=== PATIENT | male | born 1970 | race African-American/Black ===

== ENCOUNTER 2016-11-11 18:09 | Inpatient (IN) | payer OTHER ==
[2016-11-11 19:01] VITALS: BMI 17.2
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
[2016-11-11] MEDS ORDERED: P-EPHED 60MG/TRIPROLIDI 2.5MG TABLET PO PRN (19:58)
[2016-11-11] MEDS ORDERED: MAGNESIUM HYDROX 2400MG/30ML ORAL SUSPENSION 30 ML CUP PO PRN (19:58)
[2016-11-11] MEDS ORDERED: chlordiazePOXIDE HCL 25 MG CAPSULE PO ONE (19:58)
[2016-11-11] MEDS ORDERED: guaiFENesin/D-METHORPHAN HB 10 ML UNIT-DOSE CUPS PO PRN (19:58)
[2016-11-11] MEDS ORDERED: chlordiazePOXIDE HCL 25 MG CAPSULE PO PRN (19:58)
[2016-11-11] MEDS ORDERED: LOPERAMIDE HCL 2 MG CAPSULE PO PRN (19:58)
[2016-11-11] MEDS ORDERED: ACETAMINOPHEN 325 MG TABLET (FP) PO PRN (19:58)
[2016-11-11] MEDS ORDERED: MENTHOL/PHENOL 1 EACH UD MM PRN (19:58)
[2016-11-11] MEDS ORDERED: IBUPROFEN 400 MG TABLET (FP) PO PRN (19:58)
[2016-11-11] MEDS ORDERED: MAGNESIUM CITRATE 300 ML BOTTLE PO PRN (19:58)
[2016-11-11] MEDS ORDERED: hydrOXYzine PAMOATE 50 MG CAPSULE (FP) PO PRN (19:58)
[2016-11-11] MEDS ORDERED: MAG HYDROX/AL HYDROX/SIMETH 30 ML UNIT-DOSE CUP PO PRN (19:58)
[2016-11-11] MEDS: CYCLOBENZAPRINE HCL 10 MG TABLET (FP) PO PRN (22:38)
[2016-11-11] MEDS: THIAMINE HCL 100 MG TABLET (FP) PO SCH (22:38)
[2016-11-11] MEDS: diphenhydrAMINE HCL 50 MG CAPSULE PO PRN (22:38)
[2016-11-11] MEDS: chlordiazePOXIDE HCL 25 MG CAPSULE PO SCH (22:38)
[2016-11-12] MEDS: chlordiazePOXIDE HCL 25 MG CAPSULE PO SCH ×4 (06:17→22:50)
[2016-11-12 09:33] LABS: MEAN PLT VOLUME 8.5 fl (7.5-11.1); PLATELET COUNT 129 K/MM3 (134-434); RDW 13.1 % (11.9-15.9); WHITE BLOOD COUNT 5.1 K/mm3 (4.0-10.0)
[2016-11-12] MEDS: PRENATAL VITAMINS W/ FOLIC ACID TABLET (FP) PO SCH (10:29)
[2016-11-12] MEDS: CYCLOBENZAPRINE HCL 10 MG TABLET (FP) PO PRN (10:30)
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
[2016-11-12] MEDS: LIDOCAINE 5% TOPICAL PATCH TP SCH (11:27)
[2016-11-12 11:54] LABS: ALBUMIN 3.5 g/dl (3.4-5.0); ANION GAP 12 (8-16); BILIRUBIN,TOTAL 1.3 mg/dL (0.2-1.0); CALCIUM 8.7 mg/dL (8.5-10.1); CO2 25 mmol/L (21-32); CREATININE 0.8 mg/dL (0.7-1.3); GLUCOSE,RANDOM 125 mg/dL (74-106); SGOT/AST 34 U/L (15-37); SGPT/ALT 20 U/L (12-78); TOT PROT 7.2 g/dl (6.4-8.2)
[2016-11-12 11:55] LABS: ALK PHOS 62 U/L (45-117)
[2016-11-12] MEDS ORDERED: INFLUENZA VACCINE 45 MCG/0.5 ML (MDV 16-17) IM ONE (12:00)
--- NOTE | 2016-11-12 12:38 | PN ---
S CIWA - CIWA Score Nausea/Vomitin Muscle Tremors: 4-Moderate,w/Arms Extend Anxiety: 3 Agitation: 2 Paroxysmal Sweats: 3 Orientation: 1-Uncertain about Date Tacttile Disturbances: 1-Very Mild Itch/Numbness Auditory Disturbances: 0-None Visual Disturbances: 2-Mild Sensitivity Headache: 0-None Present CIWA-Ar Total Score: 19 BHS Progress Note (SOAP) Subjective: Interrupted sleep, Sweating, Anxious, Nausea, Stomach cramping, Tremors. Objective: PT. A & O X 2 (DISORIENTED ABOUT DAY / DATE). PT. OBSERVED AMBULATING ON UNIT. 11/12/16 12:36 Vital Signs Temperature 98.4 F 11/12/16 09:58 Pulse Rate 117 H 11/12/16 09:58 Respiratory Rate 18 11/12/16 09:58 Blood Pressure 120/69 11/12/16 09:58 O2 Sat by Pulse Oximetry (%) Laboratory Last Values WBC 5.1 K/mm3 (4.0-10.0) D 11/12/16 06:20 RBC 3.43 M/mm3 (4.00-5.60) L 11/12/16 06:20 Hgb 11.6 GM/dL (11.7-16.9) L 11/12/16 06:20 Hct 34.3 % (35.4-49) L 11/12/16 06:20 MCV 100.0 fl (80-96) H 11/12/16 06:20 MCHC 34.0 g/dl (32.0-35.9) 11/12/16 06:20 RDW 13.1 % (11.9-15.9) 11/12/16 06:20 Plt Count 129 K/MM3 (134-434) L 11/12/16 06:20 MPV 8.5 fl (7.5-11.1) 11/12/16 06:20 Sodium 144 mmol/L (136-145) 11/12/16 06:20 Potassium 3.2 mmol/L (3.5-5.1) L 11/12/16 06:20 Chloride 107 mmol/L (98-107) 11/12/16 06:20 Carbon Dioxide 25 mmol/L (21-32) 11/12/16 06:20 Anion Gap 12 (8-16) 11/12/16 06:20 BUN 7 mg/dL (7-18) 11/12/16 06:20 Creatinine 0.8 mg/dL (0.7-1.3) 11/12/16 06:20 Creat Clearance w eGFR > 60 (>60) 11/12/16 06:20 Random Glucose 125 mg/dL (74-106) H D 11/12/16 06:20 Calcium 8.7 mg/dL (8.5-10.1) 11/12/16 06:20 Total Bilirubin 1.3 mg/dL (0.2-1.0) H 11/12/16 06:20 AST 34 U/L (15-37) 11/12/16 06:20 ALT 20 U/L (12-78) 11/12/16 06:20 Alkaline Phosphatase 62 U/L (45-117) 11/12/16 06:20 Total Protein 7.2 g/dl (6.4-8.2) 11/12/16 06:20 Albumin 3.5 g/dl (3.4-5.0) 11/12/16 06:20 RPR Titer Nonreactive (NONREACTIVE) 11/12/16 06:20 11/12/16 12:39 LABS NOTED. 11/12/16 12:39 Assessment: 11/12/16 12:39 WITHDRAWAL SYMPTOMS. Plan: CONTINUE DETOX. START K-DUR, 40 MEQ X 1, THEN 20 MEQ BID AFTER. BGM ACBK TOMORROW FOR ELEVATED RANDOM GLUCOSE LEVEL ON ADMISSION. ADVISED PT. TO FOLLOW-UP WITH MATERIAL HANDLING TECHNICIAN / REHAB MEDICAL PROVIDER AFTER DISCHARGE FROM DETOX FOR ABNORMAL LAB VALUES.
[2016-11-12] MEDS ORDERED: POTASSIUM CHLORIDE TABS 20 MEQ TABLET.ER (FP) PO ONE (13:00)
--- NOTE | 2016-11-12 16:42 | EKG ---
Test Reason : Blood Pressure : / mmHG Vent. Rate : 077 BPM Atrial Rate : 077 BPM P-R Int : 168 ms QRS Dur : 080 ms QT Int : 432 ms P-R-T Axes : 071 054 067 degrees QTc Int : 488 ms BASELINE ARTIFACT NORMAL SINUS RHYTHM PROLONGED QT ABNORMAL ECG WHEN COMPARED WITH ECG OF 11-NOV-2016 13:34, NO SIGNIFICANT CHANGE WAS FOUND Confirmed by MD DEBRA, LUIS ([id number]) on 11/12/2016 4:42:26 PM Referred By: Confirmed By:LUIS RICHARDSON MD
[2016-11-12] MEDS: POTASSIUM CHLORIDE TABS 20 MEQ TABLET.ER (FP) PO SCH (22:49)
[2016-11-12] MEDS: THIAMINE HCL 100 MG TABLET (FP) PO SCH (22:49)
[2016-11-12] MEDS: diphenhydrAMINE HCL 50 MG CAPSULE PO PRN (22:50)
[2016-11-13] MEDS: chlordiazePOXIDE HCL 25 MG CAPSULE PO SCH ×3 (06:27→17:33)
[2016-11-13] MEDS: PRENATAL VITAMINS W/ FOLIC ACID TABLET (FP) PO SCH (10:22)
[2016-11-13] MEDS: POTASSIUM CHLORIDE TABS 20 MEQ TABLET.ER (FP) PO SCH ×2 (10:22→22:09)
[2016-11-13] MEDS: LIDOCAINE 5% TOPICAL PATCH TP SCH (10:22)
--- NOTE | 2016-11-13 12:31 | PN ---
S CIWA - CIWA Score Nausea/Vomitin Muscle Tremors: 2 Anxiety: 2 Agitation: 2 Paroxysmal Sweats: 2 Orientation: 0-Oriented Tacttile Disturbances: 2-Mild Itch/Numbness/Burn Auditory Disturbances: 0-None Visual Disturbances: 0-None Headache: 2-Mild CIWA-Ar Total Score: 15 S Progress Note (SOAP) Subjective: N/V, shakes, sweats and irritability Objective: 11/13/16 12:31 Vital Signs - 8 hr 11/13/16 11/13/16 06:00 10:00 Temperature 97.2 F L 99.3 F Pulse Rate 77 102 H Respiratory 18 18 Rate Blood Pressure 110/77 118/74 Laboratory Last Values WBC 5.1 K/mm3 (4.0-10.0) D 11/12/16 06:20 RBC 3.43 M/mm3 (4.00-5.60) L 11/12/16 06:20 Hgb 11.6 GM/dL (11.7-16.9) L 11/12/16 06:20 Hct 34.3 % (35.4-49) L 11/12/16 06:20 MCV 100.0 fl (80-96) H 11/12/16 06:20 MCHC 34.0 g/dl (32.0-35.9) 11/12/16 06:20 RDW 13.1 % (11.9-15.9) 11/12/16 06:20 Plt Count 129 K/MM3 (134-434) L 11/12/16 06:20 MPV 8.5 fl (7.5-11.1) 11/12/16 06:20 Sodium 144 mmol/L (136-145) 11/12/16 06:20 Potassium 3.2 mmol/L (3.5-5.1) L 11/12/16 06:20 Chloride 107 mmol/L (98-107) 11/12/16 06:20 Carbon Dioxide 25 mmol/L (21-32) 11/12/16 06:20 Anion Gap 12 (8-16) 11/12/16 06:20 BUN 7 mg/dL (7-18) 11/12/16 06:20 Creatinine 0.8 mg/dL (0.7-1.3) 11/12/16 06:20 Creat Clearance w eGFR > 60 (>60) 11/12/16 06:20 POC Glucometer 114 UNITS (()) 11/13/16 06:28 Random Glucose 125 mg/dL (74-106) H D 11/12/16 06:20 Calcium 8.7 mg/dL (8.5-10.1) 11/12/16 06:20 Total Bilirubin 1.3 mg/dL (0.2-1.0) H 11/12/16 06:20 AST 34 U/L (15-37) 11/12/16 06:20 ALT 20 U/L (12-78) 11/12/16 06:20 Alkaline Phosphatase 62 U/L (45-117) 11/12/16 06:20 Total Protein 7.2 g/dl (6.4-8.2) 11/12/16 06:20 Albumin 3.5 g/dl (3.4-5.0) 11/12/16 06:20 RPR Titer Nonreactive (NONREACTIVE) 11/12/16 06:20 Hepatitis C Antibody <0.1 s/co ratio (0.0-0.9) 11/12/16 06:20 Labs noted Assessment: 11/13/16 12:31 withdrawal sx Plan: continue detox
[2016-11-13] MEDS: diphenhydrAMINE HCL 50 MG CAPSULE PO PRN (22:08)
[2016-11-13] MEDS: CYCLOBENZAPRINE HCL 10 MG TABLET (FP) PO PRN (22:08)
[2016-11-13] MEDS: THIAMINE HCL 100 MG TABLET (FP) PO SCH (22:08)
[2016-11-13] MEDS: chlordiazePOXIDE 5 MG CAPSULE PO SCH (22:09)
[2016-11-14] MEDS: chlordiazePOXIDE 5 MG CAPSULE PO SCH ×3 (05:18→17:26)
[2016-11-14] MEDS: PRENATAL VITAMINS W/ FOLIC ACID TABLET (FP) PO SCH (10:05)
[2016-11-14] MEDS: POTASSIUM CHLORIDE TABS 20 MEQ TABLET.ER (FP) PO SCH ×2 (10:05→22:10)
[2016-11-14] MEDS: CYCLOBENZAPRINE HCL 10 MG TABLET (FP) PO PRN ×2 (10:05→22:10)
[2016-11-14] MEDS: LIDOCAINE 5% TOPICAL PATCH TP SCH (10:06)
--- NOTE | 2016-11-14 11:59 | PN ---
[facility] Progress Note (SOAP) Subjective: Restless, Interrupted Sleep, Nausea, Mild Headache Objective: 11/14/16 11:58 Vital Signs Temperature 97.3 F L 11/14/16 10:00 Pulse Rate 88 11/14/16 10:00 Respiratory Rate 18 11/14/16 10:00 Blood Pressure 128/90 11/14/16 10:00 O2 Sat by Pulse Oximetry (%) Laboratory Last Values WBC 5.1 K/mm3 (4.0-10.0) D 11/12/16 06:20 RBC 3.43 M/mm3 (4.00-5.60) L 11/12/16 06:20 Hgb 11.6 GM/dL (11.7-16.9) L 11/12/16 06:20 Hct 34.3 % (35.4-49) L 11/12/16 06:20 MCV 100.0 fl (80-96) H 11/12/16 06:20 MCHC 34.0 g/dl (32.0-35.9) 11/12/16 06:20 RDW 13.1 % (11.9-15.9) 11/12/16 06:20 Plt Count 129 K/MM3 (134-434) L 11/12/16 06:20 MPV 8.5 fl (7.5-11.1) 11/12/16 06:20 Sodium 144 mmol/L (136-145) 11/12/16 06:20 Potassium 3.2 mmol/L (3.5-5.1) L 11/12/16 06:20 Chloride 107 mmol/L (98-107) 11/12/16 06:20 Carbon Dioxide 25 mmol/L (21-32) 11/12/16 06:20 Anion Gap 12 (8-16) 11/12/16 06:20 BUN 7 mg/dL (7-18) 11/12/16 06:20 Creatinine 0.8 mg/dL (0.7-1.3) 11/12/16 06:20 Creat Clearance w eGFR > 60 (>60) 11/12/16 06:20 POC Glucometer 110 UNITS (()) 11/14/16 06:42 Random Glucose 125 mg/dL (74-106) H D 11/12/16 06:20 Calcium 8.7 mg/dL (8.5-10.1) 11/12/16 06:20 Total Bilirubin 1.3 mg/dL (0.2-1.0) H 11/12/16 06:20 AST 34 U/L (15-37) 11/12/16 06:20 ALT 20 U/L (12-78) 11/12/16 06:20 Alkaline Phosphatase 62 U/L (45-117) 11/12/16 06:20 Total Protein 7.2 g/dl (6.4-8.2) 11/12/16 06:20 Albumin 3.5 g/dl (3.4-5.0) 11/12/16 06:20 RPR Titer Nonreactive (NONREACTIVE) 11/12/16 06:20 Hepatitis C Antibody <0.1 s/co ratio (0.0-0.9) 11/12/16 06:20 labs noted Assessment: Withdrawal Symptoms Plan: Continue Detox
[2016-11-14] MEDS: chlordiazePOXIDE HCL 10 MG CAPSULE PO SCH (22:10)
[2016-11-14] MEDS: THIAMINE HCL 100 MG TABLET (FP) PO SCH (22:10)
[2016-11-15] MEDS: chlordiazePOXIDE HCL 10 MG CAPSULE PO SCH ×2 (07:24→12:20)
[2016-11-15 10:20] VITALS: BP 100/73; PULSE 117; TEMP 97.3
--- NOTE | 2016-11-15 10:31 | DS ---
[facility] Detox Discharge Summary Admission Date: 11/11/16 Discharge Date: 11/15/16 - History Present History: Alcohol Dependence, Cannabis Dependence - Physical Exam Results Vital Signs: Vital Signs Temperature 97.3 F L 11/15/16 10:20 Pulse Rate 117 H 11/15/16 10:20 Respiratory Rate 18 11/15/16 10:20 Blood Pressure 100/73 11/15/16 10:20 O2 Sat by Pulse Oximetry (%) - Treatment Hospital Course: Detox Protocol Followed, Detoxed Safely, Responded well, Discharged Condition Good, Rehab Referral Accepted - Medication Discharge Medications: Ambulatory Orders NK [No Known Home Medication] 11/22/15 - Diagnosis (1) Alcohol dependence with uncomplicated withdrawal Current Visit: Yes Status: Chronic (2) Cannabis dependence Current Visit: Yes Status: Chronic (3) Flank strain Current Visit: Yes Status: Chronic Qualifiers: Encounter type: sequela Qualified Code(s): S39.011S - Strain of muscle, fascia and tendon of abdomen, sequela (4) Nicotine dependence Current Visit: Yes Status: Chronic Qualifiers: Nicotine product type: cigarettes Substance use status: uncomplicated Qualified Code(s): F17.210 - Nicotine dependence, cigarettes, uncomplicated (5) Weight loss Current Visit: Yes Status: Acute (6) 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
[2016-11-15] MEDS: POTASSIUM CHLORIDE TABS 20 MEQ TABLET.ER (FP) PO SCH (12:18)
[2016-11-15] MEDS: PRENATAL VITAMINS W/ FOLIC ACID TABLET (FP) PO SCH (12:18)
[2016-11-15] MEDS: LIDOCAINE 5% TOPICAL PATCH TP SCH (12:22)
[2016-11-15] MEDS: CYCLOBENZAPRINE HCL 10 MG TABLET (FP) PO PRN (12:27)
== END 2016-11-15 13:49 | disposition other institution (70) | DRG 775 ==
LOC: YASAS 18:09 → Y6N 19:41
PROVIDERS: ADMIT Internal Medicine Addiction Medicine; ATTEND Internal Medicine Addiction Medicine
PROC: HZ2ZZZZ Detoxification Services for Substance Abuse Treatment (ICD-10-PCS; principal; 2016-11-15)
DX: F10.230 Alcohol dependence with withdrawal, uncomplicated (principal); F12.20 Cannabis dependence, uncomplicated; F17.210 Nicotine dependence, cigarettes, uncomplicated; R63.4 Abnormal weight loss; Z68.1 Body mass index [BMI] 19.9 or less, adult; S39.0 Injury of muscle, fascia and tendon of abdomen, lower back and pelvis; X50.0XXD Overexertion from strenuous movement or load, subsequent encounter
CPT/HCPCS: 36415; 80053; 85027; 86593; 93005; 93010

== ENCOUNTER → 2016-11-11 | Emergency (ER) | payer OTHER ==
[~2016-11-11] MED LIST: FOLIC ACID INJECTION - 1 MG, THIAMINE HCL 100 MG, MULTIVIT INJECTION ADULT 10 ML in SOD... IVPB ONE; MAGNESIUM SULF 50% (8.12 MEQ/2 ML-1 GM VIAL) IVPB ONE; MAGNESIUM SULF 50% (8.12 MEQ/2 ML-1 GM VIAL) ONE; chlordiazePOXIDE HCL 25 MG CAPSULE ONE; chlordiazePOXIDE HCL 25 MG CAPSULE PO ONE
[2016-11-11 12:33] VITALS: TEMP 97.9; BMI 17.4
--- NOTE | 2016-11-11 13:40 | PDOC ---
History of Present Illness - General Chief Complaint: Substance Abuse Stated Complaint: DETOX FROM ALCOHOL Time Seen by Provider: 11/11/16 12:39 History Source: Patient, Other (son) Exam Limitations: No Limitations - History of Present Illness Initial Comments: 11/11/16 13:21 46-year-old male with history of etoh abuse presents to the ED with generalized tremors, decreased appetite, and increased weakness. Patient states went to [facility] yesterday since the neighbor called stating he was hallucinating and not himself. As per patient he was discharged home and did not a rehabilitation even though he had mentioned it to the nurses in the ER. Patient states drinks approximately 5-15 beers on a daily basis but denies any other drug use. Patient is currently residing with her son who states patient needs to get help he will drink throughout the day not eating or drinking anything but beer Timing/Duration: intermittent Severity: moderate Associated Symptoms: reports: loss of appetite, weakness Past History - Past Medical History Allergies/Adverse Reactions: Allergies Allergy/AdvReac Type Severity Reaction Status Date / Time No Known Allergies Allergy Verified 11/11/16 12:27 Home Medications: Ambulatory Orders NK [No Known Home Medication] 11/22/15 Anemia: No Asthma: No Cancer: No Cardiac Disorders: No CVA: No COPD: No CHF: No Dementia: No Diabetes: No GI Disorders: Yes (pancreatitis) Disorders: No HTN: No Hypercholesterolemia: No Kidney Stones: No Liver Disease: No Suicide Attempt (Hx): No Seizures: No Thyroid Disease: No - Surgical History Appendectomy: Yes - Reproductive History Testicular Surgery: No - Psycho/Social/Smoking Cessation Hx Anxiety: No Suicidal Ideation: No Smoking Status: No Smoking History: Never smoked Have you smoked in the past 12 months: No Number of Cigarettes Smoked Daily: 1 Information on smoking cessation initiated: No Hx Alcohol Use: Yes ("6-24 OZ CANS OF BEER DAILY") Drug/Substance Use Hx: Yes (MARIJUANA) Substance Use Type: Marijuana Hx Substance Use Treatment: No Patient Lives Alone: No Lives with/in: son Review of Systems - Review of Systems Able to Perform ROS?: Yes Constitutional: Yes: Loss of Appetite, Weakness HEENTM: No: Symptoms Reported Respiratory: No: Symptoms reported Cardiac (ROS): No: Symptoms Reported ABD/GI: Yes: Poor Appetite, Poor Fluid Intake : No: Symptoms Reported Musculoskeletal: No: Symptoms Reported Integumentary: No: Symptoms Reported Neurological: Yes: Tremors Endocrine: No: Symptoms Reported Hematologic/Lymphatic: No: Symptoms Reported *Physical Exam - Vital Signs Last Vital Signs Temp Pulse Resp BP Pulse Ox 97.9 F 90 19 134/90 99 11/11/16 12:27 11/11/16 12:27 11/11/16 12:27 11/11/16 12:27 11/11/16 12:27 - Physical Exam Comments: 11/11/16 13:58 General Appearance: Yes: Nourished, Appropriately Dressed. No: Apparent Distress, Alcohol on Breath, Intoxicated HEENT: positive: EOMI, ANATOLIY, Pharynx Normal. negative: Pale Conjunctivae Neck: positive: Supple Respiratory/Chest: positive: Lungs Clear, Normal Breath Sounds. negative: Respiratory Distress, Accessory Muscle Use Cardiovascular: positive: Regular Rhythm, Regular Rate. negative: Murmur Gastrointestinal/Abdominal: positive: Soft. negative: Tenderness Extremity: positive: Normal Capillary Refill. negative: Pedal Edema Integumentary: positive: Normal Color, Warm, Moist Neurologic: positive: Motor Strength 5/5 (ambulatory), Other (mild tremors to bilateral hands without asterixis) Heart Score/ECG Review - ECG Intrepretation Rhythm: Regular Rhythm (rate 81. LVH. Normal sinus. Prolonged QT) ED Treatment Course - LABORATORY CBC & Chemistry Diagram: 11/11/16 13:35 11/11/16 13:35 Medical Decision Making - Medical Decision Making 11/11/16 13:55 patient requesting alcohol detox secondary to increased tremors and delirium. Patient states and into rehabs over the course of his life which did seem to help but only to fall back into the same pattern. Patient presently with bilateral hand tremors and mentating well. Patient with normal vital signs. Patient ordered for Librium, labs including tox, EKG, alcohol level, magnesium level, banana bag, and urine. 11/11/16 14:59 Laboratory Tests 11/11/16 11/11/16 11/11/16 13:35 13:35 13:35 WBC 8.8 D Hgb 12.1 Hct 35.6 Plt Count 137 D Neutrophils % 66.2 Monocytes % 12.4 H Sodium 138 Potassium 3.8 Chloride 99 Carbon Dioxide 27 Anion Gap 12 BUN 6 L D Creatinine 0.8 Random Glucose 78 Magnesium 1.4 L D Total Bilirubin 1.6 H D AST 41 H D ALT 22 D Urine Ketones Negative Urine Nitrite Negative Ur Leukocyte Esterase Negative Benzodiazepines Screen U Marijuana (THC) Screen 11/11/16 13:35 WBC Hgb Hct Plt Count Neutrophils % Monocytes % Sodium Potassium Chloride Carbon Dioxide Anion Gap BUN Creatinine Random Glucose Magnesium Total Bilirubin AST ALT Urine Ketones Urine Nitrite Ur Leukocyte Esterase Benzodiazepines Screen Positive U Marijuana (THC) Screen Positive Patient ordered for 2 g of magnesium. Patient states was given Ativan yesterday in the ER. 11/11/16 16:01 Patient resting comfortable in bed. Patient almost completed banana bag. Patient will be sent over [facility] for detox *DC/Admit/Observation/Transfer Diagnosis at time of Disposition: Alcohol withdrawal syndrome Qualifiers: Complication of substance-induced condition: uncomplicated Qualified Code(s): F10.230 - Alcohol dependence with withdrawal, uncomplicated - Discharge Dispostion Disposition: I.P. ALCOHOL/SUBS ABUSE REHAB
[2016-11-11 13:53] LABS: BASOPHIL 0.5 % (0-2.0); EOSINOPHIL 3.6 % (0-4.5); MCH 33.8 pg (25.7-33.7); MCHC 34.1 g/dl (32.0-35.9); MEAN CELL VOLUME 99.1 fl (80-96); MEAN PLT VOLUME 8.3 fl (7.5-11.1); NEUTROPHILS 66.2 % (42.8-82.8); PLATELET COUNT 137 K/MM3 (134-434); RDW 13.1 % (11.9-15.9); WHITE BLOOD COUNT 8.8 K/mm3 (4.0-10.0)
[2016-11-11 13:56] LABS: URINE APPEARANCE CLEAR; URINE BILIRUBIN NEGATIVE (NEGATIVE); URINE BLOOD NEGATIVE (NEGATIVE); URINE COLOR COLORLESS; URINE GLUCOSE (UA) NEGATIVE (NEGATIVE); URINE KETONE NEGATIVE (NEGATIVE); URINE LEUK ESTERASE NEGATIVE (NEGATIVE); URINE NITRITE NEGATIVE (NEGATIVE); URINE PROTEIN NEGATIVE (NEGATIVE); URINE UROBILINOGEN NEGATIVE E.U./dl (0.2-1.0)
[2016-11-11 14:21] LABS: ALBUMIN 3.9 g/dl (3.4-5.0); ALK PHOS 63 U/L (45-117); ANION GAP 12 (8-16); BILIRUBIN,TOTAL 1.6 mg/dL (0.2-1.0); CALCIUM 8.8 mg/dL (8.5-10.1); CO2 27 mmol/L (21-32); CREATININE 0.8 mg/dL (0.7-1.3); GLUCOSE,RANDOM 78 mg/dL (74-106); MAGNESIUM 1.4 mg/dL (1.8-2.4); SGOT/AST 41 U/L (15-37); SGPT/ALT 22 U/L (12-78); TOT PROT 8.2 g/dl (6.4-8.2)
[2016-11-11 14:24] LABS: URINE MARIJUANA THC POSITIVE ng/ml (CUTOFF=50)
--- NOTE | 2016-11-11 14:44 | EKG ---
Test Reason : Blood Pressure : / mmHG Vent. Rate : 081 BPM Atrial Rate : 081 BPM P-R Int : 168 ms QRS Dur : 086 ms QT Int : 420 ms P-R-T Axes : 064 050 069 degrees QTc Int : 487 ms POOR DATA QUALITY, INTERPRETATION MAY BE ADVERSELY AFFECTED NORMAL SINUS RHYTHM MINIMAL VOLTAGE CRITERIA FOR LVH, MAY BE NORMAL VARIANT NONSPECIFIC ST ABNORMALITY PROLONGED QT ABNORMAL ECG WHEN COMPARED WITH ECG OF 02-MAY-2012 14:52, QT HAS LENGTHENED Confirmed by GERARDO THOMAS MD ([id number]) on 11/11/2016 2:44:38 PM Referred By: Confirmed By:GERARDO THOMAS MD
[2016-11-11 16:23] VITALS: BP 132/82; PULSE 92
== END | disposition other institution (70) ==
LOC: JER 12:18
PROC: 3E0337Z Introduction of Electrolytic and Water Balance Substance into Peripheral Vein, Percutaneous Approach (ICD-10-PCS; principal; 2016-11-11)
PROC: 3E033GC Introduction of Other Therapeutic Substance into Peripheral Vein, Percutaneous Approach (ICD-10-PCS; 2016-11-11)
DX: F10.230 Alcohol dependence with withdrawal, uncomplicated (principal); F12.10 Cannabis abuse, uncomplicated
CPT/HCPCS: 36415; 80053; 80307; 81003; 83735; 85025; 93005; 93010; 99284-25

== ENCOUNTER 2016-11-15 13:55 | Inpatient (IN) | payer OTHER ==
[2016-11-15] MEDS ORDERED: MENTHOL/PHENOL 1 EACH UD MM PRN (15:08)
[2016-11-15] MEDS ORDERED: MAGNESIUM HYDROX 2400MG/30ML ORAL SUSPENSION 30 ML CUP PO PRN (15:08)
[2016-11-15] MEDS ORDERED: MAGNESIUM CITRATE 300 ML BOTTLE PO PRN (15:08)
[2016-11-15] MEDS ORDERED: P-EPHED 60MG/TRIPROLIDI 2.5MG TABLET PO PRN (15:08)
[2016-11-15] MEDS ORDERED: LOPERAMIDE HCL 2 MG CAPSULE PO PRN (15:08)
[2016-11-15] MEDS ORDERED: MAG HYDROX/AL HYDROX/SIMETH 30 ML UNIT-DOSE CUP PO PRN (15:08)
[2016-11-15] MEDS ORDERED: guaiFENesin/D-METHORPHAN HB 10 ML UNIT-DOSE CUPS PO PRN (15:08)
[2016-11-15 15:11] VITALS: BMI 18.0
--- NOTE | 2016-11-15 16:25 | HP ---
[facility] Rehab Assess/Revision - Admission History Admitted to Rehab from: [facility] [place] Date of Admission to Rehab: 11/15/16 - Vital signs Vital Signs: Vital Signs Period Temp Pulse Resp BP Sys/Hahn Pulse Ox Last 24 Hr 89 20 104/70 - Findings Detox History & Physical reviewed: Yes Concur with findings: Yes Comments/Additional Findings: transferred from detox to rehab admission as per protocol
[2016-11-15] MEDS: ACETAMINOPHEN 325 MG TABLET (FP) PO PRN (17:58)
[2016-11-15] MEDS: THIAMINE HCL 100 MG TABLET (FP) PO SCH (22:45)
[2016-11-16] MEDS: PRENATAL VITAMINS W/ FOLIC ACID TABLET (FP) PO SCH (10:07)
[2016-11-16] MEDS: IBUPROFEN 400 MG TABLET (FP) PO PRN ×2 (12:55→22:00)
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
[2016-11-16] MEDS: diphenhydrAMINE HCL 50 MG CAPSULE PO PRN (22:00)
[2016-11-16] MEDS: THIAMINE HCL 100 MG TABLET (FP) PO SCH (22:00)
[2016-11-17] MEDS: diphenhydrAMINE HCL 50 MG CAPSULE PO PRN (02:39)
[2016-11-17] MEDS: PRENATAL VITAMINS W/ FOLIC ACID TABLET (FP) PO SCH (09:48)
[2016-11-17] MEDS: IBUPROFEN 400 MG TABLET (FP) PO PRN ×2 (09:49→21:30)
[2016-11-17] MEDS: THIAMINE HCL 100 MG TABLET (FP) PO SCH (21:28)
[2016-11-18] MEDS: IBUPROFEN 400 MG TABLET (FP) PO PRN (10:00)
[2016-11-18] MEDS: PRENATAL VITAMINS W/ FOLIC ACID TABLET (FP) PO SCH (10:00)
[2016-11-18] MEDS ORDERED: LIDOCAINE 5% TOPICAL PATCH TP ONE (12:38)
[2016-11-18] MEDS: THIAMINE HCL 100 MG TABLET (FP) PO SCH (21:34)
[2016-11-18] MEDS: diphenhydrAMINE HCL 50 MG CAPSULE PO PRN (21:37)
[2016-11-19] MEDS: PRENATAL VITAMINS W/ FOLIC ACID TABLET (FP) PO SCH (09:27)
[2016-11-19] MEDS: IBUPROFEN 400 MG TABLET (FP) PO PRN (09:27)
[2016-11-19] MEDS: LIDOCAINE 5% TOPICAL PATCH TP SCH (09:27)
[2016-11-19] MEDS: diphenhydrAMINE HCL 50 MG CAPSULE PO PRN (21:47)
[2016-11-19] MEDS: THIAMINE HCL 100 MG TABLET (FP) PO SCH (21:47)
[2016-11-20] MEDS: IBUPROFEN 400 MG TABLET (FP) PO PRN ×2 (10:15→21:22)
[2016-11-20] MEDS: PRENATAL VITAMINS W/ FOLIC ACID TABLET (FP) PO SCH (10:17)
[2016-11-20] MEDS: LIDOCAINE 5% TOPICAL PATCH TP SCH (10:17)
[2016-11-20] MEDS: THIAMINE HCL 100 MG TABLET (FP) PO SCH (21:21)
[2016-11-21] MEDS: LIDOCAINE 5% TOPICAL PATCH TP SCH (09:47)
[2016-11-21] MEDS: PRENATAL VITAMINS W/ FOLIC ACID TABLET (FP) PO SCH (09:47)
[2016-11-21] MEDS: IBUPROFEN 400 MG TABLET (FP) PO PRN (09:48)
[2016-11-21] MEDS: THIAMINE HCL 100 MG TABLET (FP) PO SCH (22:00)
[2016-11-21] MEDS: diphenhydrAMINE HCL 50 MG CAPSULE PO PRN (23:30)
[2016-11-22] MEDS: LIDOCAINE 5% TOPICAL PATCH TP SCH (10:10)
[2016-11-22] MEDS: PRENATAL VITAMINS W/ FOLIC ACID TABLET (FP) PO SCH (10:10)
[2016-11-22] MEDS: IBUPROFEN 400 MG TABLET (FP) PO PRN (10:11)
[2016-11-22] MEDS: diphenhydrAMINE HCL 50 MG CAPSULE PO PRN (21:15)
[2016-11-22] MEDS: THIAMINE HCL 100 MG TABLET (FP) PO SCH (21:15)
[2016-11-23] MEDS: LIDOCAINE 5% TOPICAL PATCH TP SCH (09:41)
[2016-11-23] MEDS: PRENATAL VITAMINS W/ FOLIC ACID TABLET (FP) PO SCH (09:41)
[2016-11-23] MEDS: IBUPROFEN 400 MG TABLET (FP) PO PRN (09:42)
[2016-11-23] MEDS: diphenhydrAMINE HCL 50 MG CAPSULE PO PRN (21:28)
[2016-11-23] MEDS: THIAMINE HCL 100 MG TABLET (FP) PO SCH (21:28)
[2016-11-24] MEDS: LIDOCAINE 5% TOPICAL PATCH TP SCH (10:00)
[2016-11-24] MEDS: PRENATAL VITAMINS W/ FOLIC ACID TABLET (FP) PO SCH (10:00)
[2016-11-24] MEDS: IBUPROFEN 400 MG TABLET (FP) PO PRN (10:01)
[2016-11-24] MEDS: diphenhydrAMINE HCL 50 MG CAPSULE PO PRN (21:02)
[2016-11-24] MEDS: THIAMINE HCL 100 MG TABLET (FP) PO SCH (21:02)
[2016-11-25] MEDS: ACETAMINOPHEN 325 MG TABLET (FP) PO PRN (06:20)
[2016-11-25] MEDS: PRENATAL VITAMINS W/ FOLIC ACID TABLET (FP) PO SCH (10:13)
[2016-11-25] MEDS: LIDOCAINE 5% TOPICAL PATCH TP SCH (10:13)
[2016-11-25] MEDS: THIAMINE HCL 100 MG TABLET (FP) PO SCH (21:04)
[2016-11-25] MEDS: diphenhydrAMINE HCL 50 MG CAPSULE PO PRN (21:04)
[2016-11-26] MEDS: LIDOCAINE 5% TOPICAL PATCH TP SCH (09:48)
[2016-11-26] MEDS: PRENATAL VITAMINS W/ FOLIC ACID TABLET (FP) PO SCH (09:48)
[2016-11-26] MEDS: IBUPROFEN 400 MG TABLET (FP) PO PRN (09:49)
[2016-11-26] MEDS: THIAMINE HCL 100 MG TABLET (FP) PO SCH (21:36)
[2016-11-26] MEDS: diphenhydrAMINE HCL 50 MG CAPSULE PO PRN (21:36)
[2016-11-27] MEDS: PRENATAL VITAMINS W/ FOLIC ACID TABLET (FP) PO SCH (09:46)
[2016-11-27] MEDS: LIDOCAINE 5% TOPICAL PATCH TP SCH (09:46)
[2016-11-27] MEDS: IBUPROFEN 400 MG TABLET (FP) PO PRN (09:47)
[2016-11-27] MEDS: THIAMINE HCL 100 MG TABLET (FP) PO SCH (21:15)
[2016-11-27] MEDS: diphenhydrAMINE HCL 50 MG CAPSULE PO PRN (21:15)
[2016-11-28] MEDS: PRENATAL VITAMINS W/ FOLIC ACID TABLET (FP) PO SCH (09:45)
[2016-11-28] MEDS: LIDOCAINE 5% TOPICAL PATCH TP SCH (09:45)
[2016-11-28] MEDS: IBUPROFEN 400 MG TABLET (FP) PO PRN (09:46)
[2016-11-28] MEDS: diphenhydrAMINE HCL 50 MG CAPSULE PO PRN (21:26)
[2016-11-28] MEDS: THIAMINE HCL 100 MG TABLET (FP) PO SCH (21:26)
[2016-11-29] MEDS: LIDOCAINE 5% TOPICAL PATCH TP SCH (10:02)
[2016-11-29] MEDS: IBUPROFEN 400 MG TABLET (FP) PO PRN (10:02)
[2016-11-29] MEDS: PRENATAL VITAMINS W/ FOLIC ACID TABLET (FP) PO SCH (10:04)
[2016-11-29] MEDS: diphenhydrAMINE HCL 50 MG CAPSULE PO PRN (21:51)
[2016-11-29] MEDS: THIAMINE HCL 100 MG TABLET (FP) PO SCH (21:51)
[2016-11-30] MEDS: PRENATAL VITAMINS W/ FOLIC ACID TABLET (FP) PO SCH (10:05)
[2016-11-30] MEDS: LIDOCAINE 5% TOPICAL PATCH TP SCH (10:05)
[2016-11-30] MEDS: IBUPROFEN 400 MG TABLET (FP) PO PRN (10:06)
[2016-11-30] MEDS: THIAMINE HCL 100 MG TABLET (FP) PO SCH (21:29)
[2016-11-30] MEDS: diphenhydrAMINE HCL 50 MG CAPSULE PO PRN (21:29)
[2016-12-01] MEDS: LIDOCAINE 5% TOPICAL PATCH TP SCH (09:48)
[2016-12-01] MEDS: PRENATAL VITAMINS W/ FOLIC ACID TABLET (FP) PO SCH (09:48)
[2016-12-01] MEDS: ACETAMINOPHEN 325 MG TABLET (FP) PO PRN (09:49)
[2016-12-01] MEDS: diphenhydrAMINE HCL 50 MG CAPSULE PO PRN (21:34)
[2016-12-01] MEDS: THIAMINE HCL 100 MG TABLET (FP) PO SCH (21:34)
[2016-12-02] MEDS: PRENATAL VITAMINS W/ FOLIC ACID TABLET (FP) PO SCH (09:55)
[2016-12-02] MEDS: IBUPROFEN 400 MG TABLET (FP) PO PRN (09:55)
[2016-12-02] MEDS: LIDOCAINE 5% TOPICAL PATCH TP SCH (10:08)
[2016-12-02] MEDS: diphenhydrAMINE HCL 50 MG CAPSULE PO PRN (21:14)
[2016-12-02] MEDS: THIAMINE HCL 100 MG TABLET (FP) PO SCH (21:14)
[2016-12-03] MEDS: IBUPROFEN 400 MG TABLET (FP) PO PRN (10:09)
[2016-12-03] MEDS: PRENATAL VITAMINS W/ FOLIC ACID TABLET (FP) PO SCH (10:09)
[2016-12-03] MEDS: LIDOCAINE 5% TOPICAL PATCH TP SCH (10:10)
[2016-12-03] MEDS: THIAMINE HCL 100 MG TABLET (FP) PO SCH (21:44)
[2016-12-03] MEDS: diphenhydrAMINE HCL 50 MG CAPSULE PO PRN (21:44)
[2016-12-04] MEDS: diphenhydrAMINE HCL 50 MG CAPSULE PO PRN ×2 (01:45→21:57)
[2016-12-04] MEDS: LIDOCAINE 5% TOPICAL PATCH TP SCH (09:55)
[2016-12-04] MEDS: IBUPROFEN 400 MG TABLET (FP) PO PRN (09:56)
[2016-12-04] MEDS: PRENATAL VITAMINS W/ FOLIC ACID TABLET (FP) PO SCH (09:56)
[2016-12-04] MEDS: THIAMINE HCL 100 MG TABLET (FP) PO SCH (21:58)
[2016-12-05] MEDS: PRENATAL VITAMINS W/ FOLIC ACID TABLET (FP) PO SCH (09:54)
[2016-12-05] MEDS: IBUPROFEN 400 MG TABLET (FP) PO PRN (09:55)
[2016-12-05] MEDS: LIDOCAINE 5% TOPICAL PATCH TP SCH (09:55)
[2016-12-05] MEDS: diphenhydrAMINE HCL 50 MG CAPSULE PO PRN (21:46)
[2016-12-05] MEDS: THIAMINE HCL 100 MG TABLET (FP) PO SCH (21:46)
[2016-12-06] MEDS: diphenhydrAMINE HCL 50 MG CAPSULE PO PRN ×2 (01:45→21:29)
--- NOTE | 2016-12-06 10:35 | PN ---
Psychiatric Progress Note Vital Signs: Vital Signs Period Temp Pulse Resp BP Sys/Hahn Pulse Ox Last 24 Hr 98.5 F 90 18-18 117/74 Date of Session: 12/06/16 ROS: Patient addressing Alcohol Dependence Current Medications: Active Medications Generic Name Dose Route Start Last Admin Trade Name Freq PRN Reason Stop Dose Admin Acetaminophen 650 mg 11/15/16 15:08 12/01/16 09:49 Tylenol - PO 650 mg Q4H PRN Administration FEVER OR PAIN Al Hydroxide/Mg Hydroxide 30 ml 11/15/16 15:08 Mylanta Oral Suspension - PO Q6H PRN DYSPEPSIA Diphenhydramine HCl 50 mg 11/15/16 15:08 12/06/16 01:45 Benadryl - PO 50 mg HSMR1 PRN Administration FOR ITCHING Eucalyptus/Menthol/Phenol/Sorbitol 1 each 11/15/16 15:08 Cepastat Lozenge - MM Q4H PRN SORE THROAT Guaifenesin 10 ml 11/15/16 15:08 Robitussin Dm - PO Q6H PRN COUGH Ibuprofen 400 mg 11/15/16 15:08 12/05/16 09:55 Motrin - PO 400 mg Q6H PRN Administration PAIN Lidocaine 1 patch 11/19/16 10:00 12/05/16 09:55 Lidoderm Patch - TP 1 patch DAILY MANGO Administration Loperamide HCl 4 mg 11/15/16 15:08 Imodium - PO Q6H PRN DIARRHEA Magnesium Hydroxide 30 ml 11/15/16 15:08 Milk Of Magnesia - PO DAILY PRN CONSTIPATION Multivit/Folic Acid/Iron 1 tab 11/16/16 10:00 12/05/16 09:54 Vitamins (Sjr) - PO 1 tab DAILY MANGO Administration Pseudoephedrine/Triprolidine 1 combo 11/15/16 15:08 Actifed - PO TID PRN NASAL CONGESTION Thiamine HCl 100 mg 11/15/16 22:00 12/05/16 21:46 Vitamin B1 - PO 100 mg HS MANGO Administration Medication(s) Change(s): Start Campral 666 mg po TID Current Side Effect: No Lab tests ordered: Yes Lab tests reviewed: Yes Provider note:: Patient is very motivated to stop drinking and has shown interest in taking medication to help curb his craving for alcohol. Benefits vs Risks of Acamprosate(Campral) discussed with him and he agreed to try it Total face to face time:: 25 Mental Status Exam - Mental Status Exam Alert and Oriented to: Time, Place, Person Cognitive Function: Fair Patient Appearance: Well Groomed Mood: Hopeful, Euthymic Affect: Appropriate Patient Behavior: Cooperative Speech Pattern: Clear Voice Loudness: Normal Thought Process: Intact Thought Disorder: Not Present Hallucinations: Denies Suicidal Ideation: Denies Homicidal Ideation: Denies Insight/Judgement: Fair Sleep: Fair Appetite: Good Muscle strength/Tone: Normal Gait/Station: Normal Psychiatric Treatment Plan - Problem List (1) Alcohol dependence with uncomplicated withdrawal Current Visit: No (2) Oral deformity of jaw Current Visit: No Initial treatment plan: 1) Start Campral 666 mg po TID. 2) Monitor progress
[2016-12-06] MEDS: PRENATAL VITAMINS W/ FOLIC ACID TABLET (FP) PO SCH (10:39)
[2016-12-06] MEDS: LIDOCAINE 5% TOPICAL PATCH TP SCH (10:39)
[2016-12-06] MEDS: IBUPROFEN 400 MG TABLET (FP) PO PRN (10:42)
--- NOTE | 2016-12-06 14:41 | PN ---
[facility] Progress Note (SOAP) Subjective: numbness and tingling of feet . 1yr Objective: 12/06/16 14:39 Vital Signs Temperature 98.5 F 12/06/16 06:27 Pulse Rate 90 12/06/16 06:27 Respiratory Rate 18 12/06/16 06:27 Blood Pressure 117/74 12/06/16 06:27 O2 Sat by Pulse Oximetry (%) pt aox3 in nad ambulating Assessment: 12/06/16 14:40 likely neuropathy Plan: gabapentin 100mg tid
[2016-12-06] MEDS: ACAMPROSATE CALCIUM 333 MG TABLET.DR PO SCH ×2 (15:14→21:29)
[2016-12-06] MEDS: THIAMINE HCL 100 MG TABLET (FP) PO SCH (21:29)
[2016-12-06] MEDS: GABAPENTIN 100 MG CAPSULE (FP) PO SCH (21:31)
[2016-12-07] MEDS: GABAPENTIN 100 MG CAPSULE (FP) PO SCH ×3 (06:13→21:44)
[2016-12-07] MEDS: ACAMPROSATE CALCIUM 333 MG TABLET.DR PO SCH ×3 (06:14→21:45)
[2016-12-07] MEDS ORDERED: PT OWN MED DRAWER 7, Y5N ONE (08:48)
[2016-12-07] MEDS: PRENATAL VITAMINS W/ FOLIC ACID TABLET (FP) PO SCH (10:13)
[2016-12-07] MEDS: LIDOCAINE 5% TOPICAL PATCH TP SCH (10:14)
[2016-12-07] MEDS: METHYL SALICYLATE/MENTHOL OINT 30 GM TUBE TP SCH (10:14)
[2016-12-07 10:17] LABS: BASOPHIL 1.1 % (0-2.0); MCH 33.4 pg (25.7-33.7); MCHC 34.4 g/dl (32.0-35.9); MEAN CELL VOLUME 97.1 fl (80-96); MEAN PLT VOLUME 7.9 fl (7.5-11.1); PLATELET COUNT 265 K/MM3 (134-434); RDW 12.9 % (11.9-15.9)
[2016-12-07] MEDS: IBUPROFEN 600 MG TABLET (FP) PO PRN (10:18)
[2016-12-07 10:42] LABS: ALBUMIN 3.5 g/dl (3.4-5.0); ALK PHOS 83 U/L (45-117); ANION GAP 9 (8-16); BILIRUBIN,TOTAL 0.7 mg/dL (0.2-1.0); CO2 28 mmol/L (21-32); CREATININE 0.8 mg/dL (0.7-1.3); GLUCOSE,RANDOM 116 mg/dL (74-106); SGOT/AST 20 U/L (15-37); SGPT/ALT 19 U/L (12-78); TOT PROT 7.4 g/dl (6.4-8.2)
[2016-12-07] MEDS: THIAMINE HCL 100 MG TABLET (FP) PO SCH (21:43)
[2016-12-07] MEDS: diphenhydrAMINE HCL 50 MG CAPSULE PO PRN (21:44)
[2016-12-08] MEDS: ACAMPROSATE CALCIUM 333 MG TABLET.DR PO SCH ×3 (06:13→21:37)
[2016-12-08] MEDS: GABAPENTIN 100 MG CAPSULE (FP) PO SCH ×3 (06:13→21:37)
[2016-12-08] MEDS: PRENATAL VITAMINS W/ FOLIC ACID TABLET (FP) PO SCH (09:57)
[2016-12-08] MEDS: IBUPROFEN 600 MG TABLET (FP) PO PRN (09:57)
[2016-12-08] MEDS: LIDOCAINE 5% TOPICAL PATCH TP SCH (09:58)
[2016-12-08] MEDS: METHYL SALICYLATE/MENTHOL OINT 30 GM TUBE TP SCH (11:13)
[2016-12-08] MEDS: THIAMINE HCL 100 MG TABLET (FP) PO SCH (21:37)
[2016-12-08] MEDS: diphenhydrAMINE HCL 50 MG CAPSULE PO PRN (21:37)
[2016-12-09] MEDS: diphenhydrAMINE HCL 50 MG CAPSULE PO PRN ×2 (00:55→21:19)
[2016-12-09] MEDS: ACAMPROSATE CALCIUM 333 MG TABLET.DR PO SCH ×3 (06:19→21:19)
[2016-12-09] MEDS: GABAPENTIN 100 MG CAPSULE (FP) PO SCH ×3 (06:19→21:20)
[2016-12-09 06:50] VITALS: TEMP 98.3
[2016-12-09] MEDS: IBUPROFEN 600 MG TABLET (FP) PO PRN (10:07)
[2016-12-09] MEDS: PRENATAL VITAMINS W/ FOLIC ACID TABLET (FP) PO SCH (10:07)
[2016-12-09] MEDS: LIDOCAINE 5% TOPICAL PATCH TP SCH (10:08)
[2016-12-09] MEDS: METHYL SALICYLATE/MENTHOL OINT 30 GM TUBE TP SCH (10:08)
--- NOTE | 2016-12-09 11:22 | PN ---
Psychiatric Progress Note Vital Signs: Vital Signs Period Temp Pulse Resp BP Sys/Hahn Pulse Ox Last 24 Hr 98.3 F 85 18-18 115/77 Date of Session: 12/09/16 Chief Complaint:: Psychiatrist Discharge Note HPI: Patient addressing Alcohol Dependence ROS: Oral deformity of jaw Current Medications: Active Medications Generic Name Dose Route Start Last Admin Trade Name Freq PRN Reason Stop Dose Admin Acamprosate 666 mg 12/06/16 14:00 12/09/16 06:19 Campral - PO 666 mg TID MANGO Administration Acetaminophen 650 mg 11/15/16 15:08 12/01/16 09:49 Tylenol - PO 650 mg Q4H PRN Administration FEVER OR PAIN Al Hydroxide/Mg Hydroxide 30 ml 11/15/16 15:08 Mylanta Oral Suspension - PO Q6H PRN DYSPEPSIA Diphenhydramine HCl 50 mg 11/15/16 15:08 12/09/16 00:55 Benadryl - PO 50 mg HSMR1 PRN Administration FOR ITCHING Eucalyptus/Menthol/Phenol/Sorbitol 1 each 11/15/16 15:08 Cepastat Lozenge - MM Q4H PRN SORE THROAT Gabapentin 100 mg 12/06/16 22:00 12/09/16 06:19 Neurontin - PO 100 mg TID MANGO Administration Guaifenesin 10 ml 11/15/16 15:08 Robitussin Dm - PO Q6H PRN COUGH Ibuprofen 600 mg 12/06/16 15:08 12/09/16 10:07 Motrin - PO 600 mg Q6H PRN Administration PAIN Lidocaine 1 patch 11/19/16 10:00 12/09/16 10:08 Lidoderm Patch - TP Not Given DAILY MANGO Loperamide HCl 4 mg 11/15/16 15:08 Imodium - PO Q6H PRN DIARRHEA Magnesium Hydroxide 30 ml 11/15/16 15:08 Milk Of Magnesia - PO DAILY PRN CONSTIPATION Methyl Salicylate 1 applic 12/07/16 10:00 12/09/16 10:08 Truong-[place]ember[place] - TP 1 applic DAILY MANGO Administration Multivit/Folic Acid/Iron 1 tab 11/16/16 10:00 12/09/16 10:07 Vitamins (Sjr) - PO 1 tab DAILY MANGO Administration Pseudoephedrine/Triprolidine 1 combo 11/15/16 15:08 Actifed - PO TID PRN NASAL CONGESTION Thiamine HCl 100 mg 11/15/16 22:00 12/08/16 21:37 Vitamin B1 - PO 100 mg HS MANGO Administration Current Side Effect: No Lab tests ordered: Yes Lab tests reviewed: Yes Provider note:: Patient will complete this program on 12/10/16. He has met his treatment goals and will continue to address his issues in outpatient treatment at [facility]. Told parts data writer that from his participation in this program, he has learned the importace of making meeting and having a sponsor. He responded well to Acamposate(Campral) for alcohol craving. Sript for 30 days supply of that medication will be electronically transmitted to [facility].He is stable for discharge on 12/10/16 Total face to face time:: 35 Mental Status Exam - Mental Status Exam Alert and Oriented to: Time, Place, Person Cognitive Function: Fair Patient Appearance: Well Groomed Mood: Hopeful, Euthymic Affect: Appropriate Patient Behavior: Cooperative Speech Pattern: Clear Voice Loudness: Normal Thought Process: Intact Thought Disorder: Not Present Hallucinations: Denies Suicidal Ideation: Denies Homicidal Ideation: Denies Insight/Judgement: Fair Sleep: Fair Appetite: Good Muscle strength/Tone: Normal Gait/Station: Normal Psychiatric Treatment Plan - Problem List (1) Alcohol dependence with uncomplicated withdrawal Current Visit: No (2) Oral deformity of jaw Current Visit: No Initial treatment plan: Patient is discharged tomorrow and referred to [facility] for outpatient treatment
[2016-12-09] MEDS: THIAMINE HCL 100 MG TABLET (FP) PO SCH (21:19)
[2016-12-10] MEDS: ACAMPROSATE CALCIUM 333 MG TABLET.DR PO SCH (06:41)
[2016-12-10] MEDS: GABAPENTIN 100 MG CAPSULE (FP) PO SCH (06:42)
[2016-12-10 07:03] VITALS: BP 121/76; PULSE 86
[2016-12-10] MEDS: IBUPROFEN 600 MG TABLET (FP) PO PRN (10:08)
[2016-12-10] MEDS: LIDOCAINE 5% TOPICAL PATCH TP SCH (10:09)
[2016-12-10] MEDS: PRENATAL VITAMINS W/ FOLIC ACID TABLET (FP) PO SCH (10:09)
[2016-12-10] MEDS: METHYL SALICYLATE/MENTHOL OINT 30 GM TUBE TP SCH (10:09)
== END 2016-12-10 10:20 | disposition home or self-care (01) | DRG 772 ==
LOC: YASAS 13:55 → Y3W 13:57
PROVIDERS: ADMIT Psychiatry & Neurology Psychiatry; ATTEND Psychiatry & Neurology Psychiatry
PROC: HZ42ZZZ Group Counseling for Substance Abuse Treatment, Cognitive-Behavioral (ICD-10-PCS; principal; 2016-12-10)
DX: F10.230 Alcohol dependence with withdrawal, uncomplicated (principal); G62.9 Polyneuropathy, unspecified; M26.9 Dentofacial anomaly, unspecified
CPT/HCPCS: 36415; 80053; 85025

== ENCOUNTER 2017-07-29 13:04 | Inpatient (IN) | payer OTHER ==
[2017-07-29] MEDS ORDERED: MAG HYDROX/AL HYDROX/SIMETH 30 ML UNIT-DOSE CUP PO PRN (13:21)
[2017-07-29] MEDS ORDERED: MAGNESIUM HYDROX 2400MG/30ML ORAL SUSPENSION 30 ML CUP PO PRN (13:21)
[2017-07-29] MEDS ORDERED: MAGNESIUM CITRATE 300 ML BOTTLE PO PRN (13:21)
[2017-07-29] MEDS ORDERED: guaiFENesin/D-METHORPHAN HB 10 ML UNIT-DOSE CUPS PO PRN (13:21)
[2017-07-29] MEDS ORDERED: ACETAMINOPHEN 325 MG TABLET (FP) PO PRN (13:21)
[2017-07-29] MEDS ORDERED: MENTHOL/PHENOL 1 EACH UD MM PRN (13:21)
[2017-07-29] MEDS ORDERED: IBUPROFEN 400 MG TABLET (FP) PO PRN (13:21)
[2017-07-29] MEDS ORDERED: LOPERAMIDE HCL 2 MG CAPSULE PO PRN (13:21)
[2017-07-29] MEDS ORDERED: P-EPHED 60MG/TRIPROLIDI 2.5MG TABLET PO PRN (13:21)
--- NOTE | 2017-07-29 13:23 | HP ---
STACY PURCELL Rehab Assess/Revision - Admission History Admitted to Rehab from: [facility] Date of Admission to Rehab: 07/29/2017 - Vital signs Vital Signs: Vital Signs Period Temp Pulse Resp BP Sys/Hahn Pulse Ox Last 24 Hr 96 F 97 18 105/79 - Findings Detox History & Physical reviewed: Yes Concur with findings: Yes Comments/Additional Findings: PATIENT'S MEDICAL / MEDICATION HISTORY REVIEWED PRIOR TO DISCHARGE FROM DETOX UNIT. PATIENT WAS DISCHARGED FROM DETOX UNIT TO BE TAKEN TO REHAB UNIT IN STABLE MEDICAL CONDITION. Inpatient Rehab Admission - Initial Determination Are CD services needed?: Yes Free of communicable disease: Yes Not in need of hospitalization: Yes - Rehab Admission Criteria Previous failed treatment: Yes Comorbidities: Yes Patient is meeting Inpatient Rehab admission criteria:: Yes
[2017-07-29] MEDS: THIAMINE HCL 100 MG TABLET (FP) PO SCH (22:16)
[2017-07-29] MEDS: hydrOXYzine PAMOATE 25 MG CAPSULE (FP) PO PRN (23:45)
[2017-07-30] MEDS: PRENATAL VITAMINS W/ FOLIC ACID TABLET (FP) PO SCH (09:36)
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
[2017-07-30] MEDS: THIAMINE HCL 100 MG TABLET (FP) PO SCH (21:08)
[2017-07-31] MEDS: hydrOXYzine PAMOATE 25 MG CAPSULE (FP) PO PRN ×2 (00:31→21:04)
[2017-07-31] MEDS: PRENATAL VITAMINS W/ FOLIC ACID TABLET (FP) PO SCH (09:42)
[2017-07-31] MEDS: THIAMINE HCL 100 MG TABLET (FP) PO SCH (21:04)
[2017-08-01] MEDS ORDERED: diphenhydrAMINE HCL 50 MG CAPSULE PO PRN (00:30)
[2017-08-01] MEDS: PRENATAL VITAMINS W/ FOLIC ACID TABLET (FP) PO SCH (09:23)
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
[2017-08-01] MEDS: THIAMINE HCL 100 MG TABLET (FP) PO SCH (21:15)
[2017-08-01] MEDS: MIRTAZAPINE 15 MG TABLET (FP) PO SCH (21:15)
[2017-08-02] MEDS: PRENATAL VITAMINS W/ FOLIC ACID TABLET (FP) PO SCH (09:29)
[2017-08-02] MEDS: hydrOXYzine PAMOATE 50 MG CAPSULE (FP) PO PRN (09:30)
[2017-08-02] MEDS: MIRTAZAPINE 15 MG TABLET (FP) PO SCH (22:42)
[2017-08-02] MEDS: THIAMINE HCL 100 MG TABLET (FP) PO SCH (22:42)
[2017-08-03] MEDS: PRENATAL VITAMINS W/ FOLIC ACID TABLET (FP) PO SCH (09:35)
[2017-08-03] MEDS: hydrOXYzine PAMOATE 50 MG CAPSULE (FP) PO PRN (09:35)
[2017-08-03] MEDS: MIRTAZAPINE 15 MG TABLET (FP) PO SCH (22:43)
[2017-08-03] MEDS: THIAMINE HCL 100 MG TABLET (FP) PO SCH (22:43)
[2017-08-04] MEDS: PRENATAL VITAMINS W/ FOLIC ACID TABLET (FP) PO SCH (09:44)
[2017-08-04] MEDS: hydrOXYzine PAMOATE 50 MG CAPSULE (FP) PO PRN (09:44)
[2017-08-04] MEDS: THIAMINE HCL 100 MG TABLET (FP) PO SCH (22:56)
[2017-08-04] MEDS: MIRTAZAPINE 15 MG TABLET (FP) PO SCH (22:56)
[2017-08-05] MEDS: PRENATAL VITAMINS W/ FOLIC ACID TABLET (FP) PO SCH (09:34)
[2017-08-05] MEDS: hydrOXYzine PAMOATE 50 MG CAPSULE (FP) PO PRN (09:35)
[2017-08-05] MEDS: THIAMINE HCL 100 MG TABLET (FP) PO SCH (22:44)
[2017-08-05] MEDS: MIRTAZAPINE 15 MG TABLET (FP) PO SCH (22:44)
[2017-08-06] MEDS: hydrOXYzine PAMOATE 50 MG CAPSULE (FP) PO PRN (09:36)
[2017-08-06] MEDS: PRENATAL VITAMINS W/ FOLIC ACID TABLET (FP) PO SCH (09:36)
[2017-08-06] MEDS: THIAMINE HCL 100 MG TABLET (FP) PO SCH (23:00)
[2017-08-06] MEDS: MIRTAZAPINE 15 MG TABLET (FP) PO SCH (23:00)
[2017-08-07] MEDS: hydrOXYzine PAMOATE 50 MG CAPSULE (FP) PO PRN (09:38)
[2017-08-07] MEDS: PRENATAL VITAMINS W/ FOLIC ACID TABLET (FP) PO SCH (09:38)
[2017-08-07] MEDS: MIRTAZAPINE 15 MG TABLET (FP) PO SCH (22:42)
[2017-08-07] MEDS: THIAMINE HCL 100 MG TABLET (FP) PO SCH (22:42)
[2017-08-08] MEDS: PRENATAL VITAMINS W/ FOLIC ACID TABLET (FP) PO SCH (10:02)
[2017-08-08] MEDS: hydrOXYzine PAMOATE 50 MG CAPSULE (FP) PO PRN (13:06)
[2017-08-08] MEDS: THIAMINE HCL 100 MG TABLET (FP) PO SCH (23:09)
[2017-08-08] MEDS: MIRTAZAPINE 15 MG TABLET (FP) PO SCH (23:09)
[2017-08-09] MEDS: PRENATAL VITAMINS W/ FOLIC ACID TABLET (FP) PO SCH (09:56)
[2017-08-09] MEDS: hydrOXYzine PAMOATE 50 MG CAPSULE (FP) PO PRN (09:57)
[2017-08-09] MEDS: THIAMINE HCL 100 MG TABLET (FP) PO SCH (22:47)
[2017-08-09] MEDS: MIRTAZAPINE 15 MG TABLET (FP) PO SCH (22:47)
[2017-08-10] MEDS: PRENATAL VITAMINS W/ FOLIC ACID TABLET (FP) PO SCH (09:37)
[2017-08-10] MEDS: hydrOXYzine PAMOATE 50 MG CAPSULE (FP) PO PRN (09:37)
[2017-08-10] MEDS: MIRTAZAPINE 15 MG TABLET (FP) PO SCH (22:48)
[2017-08-10] MEDS: THIAMINE HCL 100 MG TABLET (FP) PO SCH (22:48)
[2017-08-11] MEDS: hydrOXYzine PAMOATE 50 MG CAPSULE (FP) PO PRN (09:34)
[2017-08-11] MEDS: PRENATAL VITAMINS W/ FOLIC ACID TABLET (FP) PO SCH (09:34)
[2017-08-11] MEDS: MIRTAZAPINE 15 MG TABLET (FP) PO SCH (22:54)
[2017-08-11] MEDS: THIAMINE HCL 100 MG TABLET (FP) PO SCH (22:54)
[2017-08-12] MEDS: PRENATAL VITAMINS W/ FOLIC ACID TABLET (FP) PO SCH (09:32)
[2017-08-12] MEDS: hydrOXYzine PAMOATE 50 MG CAPSULE (FP) PO PRN (09:33)
[2017-08-12] MEDS: THIAMINE HCL 100 MG TABLET (FP) PO SCH (23:23)
[2017-08-12] MEDS: MIRTAZAPINE 15 MG TABLET (FP) PO SCH (23:23)
[2017-08-13] MEDS: PRENATAL VITAMINS W/ FOLIC ACID TABLET (FP) PO SCH (09:51)
[2017-08-13] MEDS: hydrOXYzine PAMOATE 50 MG CAPSULE (FP) PO PRN (09:51)
[2017-08-13] MEDS: MIRTAZAPINE 15 MG TABLET (FP) PO SCH (22:46)
[2017-08-13] MEDS: THIAMINE HCL 100 MG TABLET (FP) PO SCH (22:46)
[2017-08-14] MEDS: hydrOXYzine PAMOATE 50 MG CAPSULE (FP) PO PRN (09:48)
[2017-08-14] MEDS: PRENATAL VITAMINS W/ FOLIC ACID TABLET (FP) PO SCH (09:48)
[2017-08-14] MEDS: THIAMINE HCL 100 MG TABLET (FP) PO SCH (23:04)
[2017-08-14] MEDS: MIRTAZAPINE 15 MG TABLET (FP) PO SCH (23:04)
[2017-08-15] MEDS: PRENATAL VITAMINS W/ FOLIC ACID TABLET (FP) PO SCH (09:42)
[2017-08-15] MEDS: hydrOXYzine PAMOATE 50 MG CAPSULE (FP) PO PRN (09:43)
[2017-08-15] MEDS: MIRTAZAPINE 15 MG TABLET (FP) PO SCH (22:59)
[2017-08-15] MEDS: THIAMINE HCL 100 MG TABLET (FP) PO SCH (22:59)
[2017-08-16] MEDS: PRENATAL VITAMINS W/ FOLIC ACID TABLET (FP) PO SCH (09:35)
[2017-08-16] MEDS: hydrOXYzine PAMOATE 50 MG CAPSULE (FP) PO PRN (09:35)
[2017-08-16] MEDS: MIRTAZAPINE 15 MG TABLET (FP) PO SCH (22:44)
[2017-08-16] MEDS: THIAMINE HCL 100 MG TABLET (FP) PO SCH (22:44)
[2017-08-17] MEDS: PRENATAL VITAMINS W/ FOLIC ACID TABLET (FP) PO SCH (09:31)
[2017-08-17] MEDS: hydrOXYzine PAMOATE 50 MG CAPSULE (FP) PO PRN (09:31)
[2017-08-17] MEDS: THIAMINE HCL 100 MG TABLET (FP) PO SCH (22:45)
[2017-08-17] MEDS: MIRTAZAPINE 15 MG TABLET (FP) PO SCH (22:45)
[2017-08-18] MEDS: PRENATAL VITAMINS W/ FOLIC ACID TABLET (FP) PO SCH (09:46)
[2017-08-18] MEDS: hydrOXYzine PAMOATE 50 MG CAPSULE (FP) PO PRN (09:46)
[2017-08-18] MEDS: MIRTAZAPINE 15 MG TABLET (FP) PO SCH (22:58)
[2017-08-18] MEDS: THIAMINE HCL 100 MG TABLET (FP) PO SCH (22:58)
[2017-08-19] MEDS: hydrOXYzine PAMOATE 50 MG CAPSULE (FP) PO PRN (09:38)
[2017-08-19] MEDS: PRENATAL VITAMINS W/ FOLIC ACID TABLET (FP) PO SCH (09:38)
[2017-08-19] MEDS: MIRTAZAPINE 15 MG TABLET (FP) PO SCH (22:33)
[2017-08-19] MEDS: THIAMINE HCL 100 MG TABLET (FP) PO SCH (22:33)
[2017-08-20] MEDS: PRENATAL VITAMINS W/ FOLIC ACID TABLET (FP) PO SCH (09:36)
[2017-08-20] MEDS: hydrOXYzine PAMOATE 50 MG CAPSULE (FP) PO PRN (09:36)
[2017-08-20] MEDS: MIRTAZAPINE 15 MG TABLET (FP) PO SCH (22:34)
[2017-08-20] MEDS: THIAMINE HCL 100 MG TABLET (FP) PO SCH (22:34)
[2017-08-21] MEDS: PRENATAL VITAMINS W/ FOLIC ACID TABLET (FP) PO SCH (10:01)
[2017-08-21] MEDS: hydrOXYzine PAMOATE 50 MG CAPSULE (FP) PO PRN (10:01)
[2017-08-21] MEDS: THIAMINE HCL 100 MG TABLET (FP) PO SCH (22:45)
[2017-08-21] MEDS: MIRTAZAPINE 15 MG TABLET (FP) PO SCH (22:45)
[2017-08-22] MEDS: PRENATAL VITAMINS W/ FOLIC ACID TABLET (FP) PO SCH (09:44)
[2017-08-22] MEDS: hydrOXYzine PAMOATE 50 MG CAPSULE (FP) PO PRN (09:44)
[2017-08-22] MEDS: NAPROXEN 500 MG TABLET (FP) PO SCH ×2 (11:01→22:42)
[2017-08-22] MEDS: PANTOPRAZOLE 40 MG TABLET (FP) PO SCH (11:01)
[2017-08-22] MEDS: THIAMINE HCL 100 MG TABLET (FP) PO SCH (22:42)
[2017-08-22] MEDS: MIRTAZAPINE 15 MG TABLET (FP) PO SCH (22:42)
[2017-08-23] MEDS: PANTOPRAZOLE 40 MG TABLET (FP) PO SCH (09:51)
[2017-08-23] MEDS: PRENATAL VITAMINS W/ FOLIC ACID TABLET (FP) PO SCH (09:51)
[2017-08-23] MEDS: NAPROXEN 500 MG TABLET (FP) PO SCH ×2 (09:51→22:46)
[2017-08-23] MEDS: MIRTAZAPINE 15 MG TABLET (FP) PO SCH (22:46)
[2017-08-23] MEDS: THIAMINE HCL 100 MG TABLET (FP) PO SCH (22:46)
[2017-08-24 06:53] VITALS: PULSE 81
[2017-08-24] MEDS: NAPROXEN 500 MG TABLET (FP) PO SCH ×2 (09:48→22:48)
[2017-08-24] MEDS: PRENATAL VITAMINS W/ FOLIC ACID TABLET (FP) PO SCH (09:48)
[2017-08-24] MEDS: PANTOPRAZOLE 40 MG TABLET (FP) PO SCH (09:48)
[2017-08-24] MEDS: THIAMINE HCL 100 MG TABLET (FP) PO SCH (22:48)
[2017-08-24] MEDS: MIRTAZAPINE 15 MG TABLET (FP) PO SCH (22:48)
[2017-08-25 07:02] VITALS: BP 126/86; TEMP 97.8
[2017-08-25] MEDS: PRENATAL VITAMINS W/ FOLIC ACID TABLET (FP) PO SCH (09:57)
[2017-08-25] MEDS: NAPROXEN 500 MG TABLET (FP) PO SCH (09:57)
[2017-08-25] MEDS: PANTOPRAZOLE 40 MG TABLET (FP) PO SCH (09:57)
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
== END 2017-08-25 10:30 | disposition home or self-care (01) | DRG 772 ==
LOC: YASAS 13:04 → Y5N 13:05
PROVIDERS: ADMIT Psychiatry & Neurology Psychiatry; ATTEND Psychiatry & Neurology Psychiatry
PROC: HZ42ZZZ Group Counseling for Substance Abuse Treatment, Cognitive-Behavioral (ICD-10-PCS; principal; 2017-07-29)
DX: F10.20 Alcohol dependence, uncomplicated (principal); F17.210 Nicotine dependence, cigarettes, uncomplicated; F10.24 Alcohol dependence with alcohol-induced mood disorder; G47.00 Insomnia, unspecified; Z63.4 Disappearance and death of family member

== ENCOUNTER 2018-01-07 19:34 | Inpatient (IN) | payer OTHER ==
[2018-01-07 20:16] VITALS: BMI 17.4
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
[2018-01-07] MEDS ORDERED: MENTHOL/PHENOL 1 EACH UD MM PRN (21:25)
[2018-01-07] MEDS ORDERED: IBUPROFEN 400 MG TABLET (FP) PO PRN (21:25)
[2018-01-07] MEDS ORDERED: guaiFENesin/D-METHORPHAN HB 10 ML UNIT-DOSE CUPS PO PRN (21:25)
[2018-01-07] MEDS ORDERED: chlordiazePOXIDE HCL 25 MG CAPSULE PO PRN (21:25)
[2018-01-07] MEDS ORDERED: ACETAMINOPHEN 325 MG TABLET (FP) PO PRN (21:25)
[2018-01-07] MEDS ORDERED: P-EPHED 60MG/TRIPROLIDI 2.5MG TABLET PO PRN (21:25)
[2018-01-07] MEDS ORDERED: hydrOXYzine PAMOATE 50 MG CAPSULE (FP) PO PRN (21:25)
[2018-01-07] MEDS ORDERED: MAGNESIUM HYDROX 2400MG/30ML ORAL SUSPENSION 30 ML CUP PO PRN (21:25)
[2018-01-07] MEDS ORDERED: MAGNESIUM CITRATE 300 ML BOTTLE PO PRN (21:25)
[2018-01-07] MEDS ORDERED: LOPERAMIDE HCL 2 MG CAPSULE PO PRN (21:25)
[2018-01-07] MEDS ORDERED: MAG HYDROX/AL HYDROX/SIMETH 30 ML UNIT-DOSE CUP PO PRN (21:25)
[2018-01-07] MEDS ORDERED: cloNIDine HCL 0.1 MG TABLET PO PRN (21:27)
[2018-01-07] MEDS ORDERED: MELATONIN 5 MG TABLETS PO PRN (22:00)
[2018-01-07] MEDS: chlordiazePOXIDE HCL 25 MG CAPSULE PO SCH (23:04)
[2018-01-07] MEDS: THIAMINE HCL 100 MG TABLET (FP) PO SCH (23:06)
[2018-01-08] MEDS: chlordiazePOXIDE HCL 25 MG CAPSULE PO SCH ×4 (05:57→22:25)
--- NOTE | 2018-01-08 08:34 | EKG ---
Test Reason : Blood Pressure : / mmHG Vent. Rate : 075 BPM Atrial Rate : 075 BPM P-R Int : 174 ms QRS Dur : 084 ms QT Int : 396 ms P-R-T Axes : 064 064 075 degrees QTc Int : 442 ms POOR DATA QUALITY, INTERPRETATION MAY BE ADVERSELY AFFECTED NORMAL SINUS RHYTHM POSSIBLE LEFT ATRIAL ENLARGEMENT LEFT VENTRICULAR HYPERTROPHY ABNORMAL ECG WHEN COMPARED WITH ECG OF 25-JUL-2017 23:28, NO SIGNIFICANT CHANGE WAS FOUND Confirmed by MARGOT VILLARREAL MD ([id number]) on 01/08/2018 8:34:36 AM Referred By: Confirmed By:MARGOT VILLARREAL MD
[2018-01-08 09:56] LABS: HEMOGLOBIN 12.9 GM/dL (11.7-16.9); MCH 34.7 pg (25.7-33.7); MEAN CELL VOLUME 101.9 fl (80-96); MEAN PLT VOLUME 7.8 fl (7.5-11.1); PLATELET COUNT 152 K/MM3 (134-434); RBC 3.73 M/mm3 (4.00-5.60); RDW 12.7 % (11.9-15.9); WHITE BLOOD COUNT 3.4 K/mm3 (4.0-10.0)
[2018-01-08 10:03] LABS: URINE APPEARANCE CLOUDY; URINE BILIRUBIN NEGATIVE (<2.0 mg/dL); URINE BLOOD NEGATIVE (NEGATIVE); URINE COLOR AMBER; URINE GLUCOSE (UA) NEGATIVE (NEGATIVE); URINE KETONE TRACE (NEGATIVE); URINE NITRITE NEGATIVE (NEGATIVE); URINE PROTEIN NEGATIVE (NEGATIVE); URINE UROBILINOGEN 4.0 E.U/dl mg/dL (0.2-1.0)
[2018-01-08 10:05] LABS: URINE LEUK ESTERASE 2+ (NEGATIVE)
[2018-01-08 10:11] LABS: EPI CELLS RARE /HPF (FEW); URINE BACTERIA RARE /hpf (NONE SEEN); URINE HYALINE CAST 4 /lpf; URINE MUCUS RARE
[2018-01-08 10:16] LABS: CHLORIDE 98 mmol/L (98-107); POTASSIUM 3.5 mmol/L (3.5-5.1); SODIUM 135 mmol/L (136-145)
[2018-01-08 10:23] LABS: ALBUMIN 3.9 g/dl (3.4-5.0); ALK PHOS 71 U/L (45-117); ANION GAP 10 (8-16); BILIRUBIN,TOTAL 1.1 mg/dL (0.2-1.0); BLOOD UREA NITROGEN 4 mg/dL (7-18); CALCIUM 9.1 mg/dL (8.5-10.1); CO2 27 mmol/L (21-32); CREATININE 0.7 mg/dL (0.7-1.3); GLUCOSE,RANDOM 92 mg/dL (74-106); SGOT/AST 177 U/L (15-37); SGPT/ALT 109 U/L (12-78); TOT PROT 8.2 g/dl (6.4-8.2)
[2018-01-08] MEDS: PRENATAL VITAMINS W/ FOLIC ACID TABLET (FP) PO SCH (10:44)
--- NOTE | 2018-01-08 12:17 | PN ---
[facility] CIWA - CIWA Score Nausea/Vomitin-Mild Nausea/No Vomiting Muscle Tremors: 4-Moderate,w/Arms Extend Anxiety: 4-Mod. Anxious/Guarded Agitation: 4-Moderately Restless Paroxysmal Sweats: 1-Minimal Palms Moist Orientation: 1-Uncertain about Date Tacttile Disturbances: 1-Very Mild Itch/Numbness Auditory Disturbances: 0-None Visual Disturbances: 0-None Headache: 2-Mild CIWA-Ar Total Score: 18 BHS Progress Note (SOAP) Subjective: sweat tremor anxiety restlessness trouble sleeping Objective: 01/08/18 12:14 Vital Signs Temperature 98.6 F 01/08/18 10:00 Pulse Rate 102 H 01/08/18 11:00 Respiratory Rate 20 01/08/18 11:00 Blood Pressure 127/89 01/08/18 10:00 O2 Sat by Pulse Oximetry (%) 01/08/18 01/08/18 06:00 06:00 WBC 3.4 L RBC 3.73 L Hgb 12.9 Hct 38.0 MCV 101.9 H MCHC 34.0 RDW 12.7 Plt Count 152 Sodium 135 L Potassium 3.5 Chloride 98 Carbon Dioxide 27 Anion Gap 10 BUN 4 L D Creatinine 0.7 Laboratory Last Values WBC 3.4 K/mm3 (4.0-10.0) L 01/08/18 06:00 RBC 3.73 M/mm3 (4.00-5.60) L 01/08/18 06:00 Hgb 12.9 GM/dL (11.7-16.9) 01/08/18 06:00 Hct 38.0 % (35.4-49) 01/08/18 06:00 MCV 101.9 fl (80-96) H 01/08/18 06:00 MCH 34.7 pg (25.7-33.7) H 01/08/18 06:00 MCHC 34.0 g/dl (32.0-35.9) 01/08/18 06:00 RDW 12.7 % (11.9-15.9) 01/08/18 06:00 Plt Count 152 K/MM3 (134-434) 01/08/18 06:00 MPV 7.8 fl (7.5-11.1) 01/08/18 06:00 Sodium 135 mmol/L (136-145) L 01/08/18 06:00 Potassium 3.5 mmol/L (3.5-5.1) 01/08/18 06:00 Chloride 98 mmol/L (98-107) 01/08/18 06:00 Carbon Dioxide 27 mmol/L (21-32) 01/08/18 06:00 Anion Gap 10 (8-16) 01/08/18 06:00 BUN 4 mg/dL (7-18) L D 01/08/18 06:00 Creatinine 0.7 mg/dL (0.7-1.3) 01/08/18 06:00 Creat Clearance w eGFR > 60 (>60) 01/08/18 06:00 Random Glucose 92 mg/dL (74-106) D 01/08/18 06:00 Calcium 9.1 mg/dL (8.5-10.1) 01/08/18 06:00 Total Bilirubin 1.1 mg/dL (0.2-1.0) H D 01/08/18 06:00 AST 177 U/L (15-37) H D 01/08/18 06:00 ALT 109 U/L (12-78) H D 01/08/18 06:00 Alkaline Phosphatase 71 U/L (45-117) 01/08/18 06:00 Total Protein 8.2 g/dl (6.4-8.2) 01/08/18 06:00 Albumin 3.9 g/dl (3.4-5.0) 01/08/18 06:00 Urine Color Graciela 01/07/18 08:00 Urine Appearance Cloudy 01/07/18 08:00 Urine pH 5.0 (5.0-8.0) 01/07/18 08:00 Ur Specific [place] 1.012 (1.001-1.035) 01/07/18 08:00 Urine Protein Negative (NEGATIVE) 01/07/18 08:00 Urine Glucose (UA) Negative (NEGATIVE) 01/07/18 08:00 Urine Ketones Trace (NEGATIVE) H 01/07/18 08:00 Urine Blood Negative (NEGATIVE) 01/07/18 08:00 Urine Nitrite Negative (NEGATIVE) 01/07/18 08:00 Urine Bilirubin Negative (<2.0 mg/dL) 01/07/18 08:00 Urine Urobilinogen 4.0 e.u/dl mg/dL (0.2-1.0) 01/07/18 08:00 Ur Leukocyte Esterase 2+ (NEGATIVE) H 01/07/18 08:00 Urine WBC (Auto) 19 /hpf (3-5) 01/07/18 08:00 Urine RBC (Auto) 1 /hpf (0-3) 01/07/18 08:00 Ur Epithelial Cells Rare /HPF (FEW) 01/07/18 08:00 Urine Bacteria Rare /hpf (NONE SEEN) 01/07/18 08:00 Hyaline Casts 4 /lpf 01/07/18 08:00 Urine Mucus Rare 01/07/18 08:00 RPR Titer Nonreactive (NONREACTIVE) 01/08/18 06:00 lab noted 01/08/18 12:21 sinus tachycharia Assessment: 01/08/18 12:22 withdrawal sx tachycardia Plan: continue detox begin propranolol 10 mg po q8h
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
[2018-01-08] MEDS: THIAMINE HCL 100 MG TABLET (FP) PO SCH (22:25)
[2018-01-08] MEDS: ZOLPIDEM TARTRATE 5 MG TABLET PO PRN (22:27)
[2018-01-09] MEDS: chlordiazePOXIDE HCL 25 MG CAPSULE PO SCH ×3 (05:59→17:17)
[2018-01-09] MEDS: PRENATAL VITAMINS W/ FOLIC ACID TABLET (FP) PO SCH (10:12)
--- NOTE | 2018-01-09 10:46 | PN ---
S CIWA - CIWA Score Nausea/Vomitin Muscle Tremors: 3 Anxiety: 3 Agitation: 2 Paroxysmal Sweats: 1-Minimal Palms Moist Orientation: 0-Oriented Tacttile Disturbances: 1-Very Mild Itch/Numbness Auditory Disturbances: 1-Very Mild Visual Disturbances: 0-None Headache: 2-Mild CIWA-Ar Total Score: 16 BHS Progress Note (SOAP) Subjective: ALERT,IRRITABLE,ANXIOUS,INTERRUPTED SLEEP,TREMOR Objective: 01/09/18 10:45 Vital Signs Temperature 99.7 F H 01/09/18 09:32 Pulse Rate 89 01/09/18 09:32 Respiratory Rate 18 01/09/18 09:32 Blood Pressure 114/75 01/09/18 09:32 O2 Sat by Pulse Oximetry (%) Laboratory Last Values WBC 3.4 K/mm3 (4.0-10.0) L 01/08/18 06:00 RBC 3.73 M/mm3 (4.00-5.60) L 01/08/18 06:00 Hgb 12.9 GM/dL (11.7-16.9) 01/08/18 06:00 Hct 38.0 % (35.4-49) 01/08/18 06:00 MCV 101.9 fl (80-96) H 01/08/18 06:00 MCH 34.7 pg (25.7-33.7) H 01/08/18 06:00 MCHC 34.0 g/dl (32.0-35.9) 01/08/18 06:00 RDW 12.7 % (11.9-15.9) 01/08/18 06:00 Plt Count 152 K/MM3 (134-434) 01/08/18 06:00 MPV 7.8 fl (7.5-11.1) 01/08/18 06:00 Sodium 135 mmol/L (136-145) L 01/08/18 06:00 Potassium 3.5 mmol/L (3.5-5.1) 01/08/18 06:00 Chloride 98 mmol/L (98-107) 01/08/18 06:00 Carbon Dioxide 27 mmol/L (21-32) 01/08/18 06:00 Anion Gap 10 (8-16) 01/08/18 06:00 BUN 4 mg/dL (7-18) L D 01/08/18 06:00 Creatinine 0.7 mg/dL (0.7-1.3) 01/08/18 06:00 Creat Clearance w eGFR > 60 (>60) 01/08/18 06:00 Random Glucose 92 mg/dL (74-106) D 01/08/18 06:00 Calcium 9.1 mg/dL (8.5-10.1) 01/08/18 06:00 Total Bilirubin 1.1 mg/dL (0.2-1.0) H D 01/08/18 06:00 AST 177 U/L (15-37) H D 01/08/18 06:00 ALT 109 U/L (12-78) H D 01/08/18 06:00 Alkaline Phosphatase 71 U/L (45-117) 01/08/18 06:00 Total Protein 8.2 g/dl (6.4-8.2) 01/08/18 06:00 Albumin 3.9 g/dl (3.4-5.0) 01/08/18 06:00 Urine Color Graciela 01/07/18 08:00 Urine Appearance Cloudy 01/07/18 08:00 Urine pH 5.0 (5.0-8.0) 01/07/18 08:00 Ur Specific [place] 1.012 (1.001-1.035) 01/07/18 08:00 Urine Protein Negative (NEGATIVE) 01/07/18 08:00 Urine Glucose (UA) Negative (NEGATIVE) 01/07/18 08:00 Urine Ketones Trace (NEGATIVE) H 01/07/18 08:00 Urine Blood Negative (NEGATIVE) 01/07/18 08:00 Urine Nitrite Negative (NEGATIVE) 01/07/18 08:00 Urine Bilirubin Negative (<2.0 mg/dL) 01/07/18 08:00 Urine Urobilinogen 4.0 e.u/dl mg/dL (0.2-1.0) 01/07/18 08:00 Ur Leukocyte Esterase 2+ (NEGATIVE) H 01/07/18 08:00 Urine WBC (Auto) 19 /hpf (3-5) 01/07/18 08:00 Urine RBC (Auto) 1 /hpf (0-3) 01/07/18 08:00 Ur Epithelial Cells Rare /HPF (FEW) 01/07/18 08:00 Urine Bacteria Rare /hpf (NONE SEEN) 01/07/18 08:00 Hyaline Casts 4 /lpf 01/07/18 08:00 Urine Mucus Rare 01/07/18 08:00 RPR Titer Nonreactive (NONREACTIVE) 01/08/18 06:00 Assessment: 01/09/18 10:45 WITHDRAWAL SYMPTOM Plan: CONTINUE DETOX,REPEAT UA
[2018-01-09] MEDS: THIAMINE HCL 100 MG TABLET (FP) PO SCH (22:23)
[2018-01-09] MEDS: chlordiazePOXIDE 5 MG CAPSULE PO SCH (22:25)
[2018-01-10] MEDS: chlordiazePOXIDE 5 MG CAPSULE PO SCH ×3 (05:22→17:38)
--- NOTE | 2018-01-10 09:54 | PN ---
S Progress Note (SOAP) Subjective: ALERT,IRRITABLE,ANXIOUS,INTERRUPTED SLEEP, Objective: 01/10/18 09:53 Vital Signs Temperature 97.3 F L 01/10/18 06:37 Pulse Rate 81 01/10/18 06:37 Respiratory Rate 18 01/10/18 06:37 Blood Pressure 117/74 01/10/18 06:37 O2 Sat by Pulse Oximetry (%) Assessment: 01/10/18 09:54 WITHDRAWAL SYMPTOM Plan: CONTINUE DETOX,DISCHARGE IN AM
[2018-01-10] MEDS: PRENATAL VITAMINS W/ FOLIC ACID TABLET (FP) PO SCH (10:30)
[2018-01-10 18:35] LABS: URINE APPEARANCE TURBID; URINE BILIRUBIN NEGATIVE (<2.0 mg/dL); URINE BLOOD NEGATIVE (NEGATIVE); URINE COLOR AMBER; URINE GLUCOSE (UA) NEGATIVE (NEGATIVE); URINE KETONE NEGATIVE (NEGATIVE); URINE NITRITE NEGATIVE (NEGATIVE); URINE PROTEIN NEGATIVE (NEGATIVE)
[2018-01-10 18:36] LABS: URINE LEUK ESTERASE 1+ (NEGATIVE)
[2018-01-10 18:51] LABS: EPI CELLS RARE /HPF (FEW); URINE MUCUS MODERATE
[2018-01-10] MEDS: THIAMINE HCL 100 MG TABLET (FP) PO SCH (22:09)
[2018-01-10] MEDS: chlordiazePOXIDE HCL 10 MG CAPSULE PO SCH (22:09)
[2018-01-10] MEDS: ZOLPIDEM TARTRATE 5 MG TABLET PO PRN (22:12)
[2018-01-11] MEDS: chlordiazePOXIDE HCL 10 MG CAPSULE PO SCH (05:40)
--- NOTE | 2018-01-11 08:25 | PN ---
S Progress Note (SOAP) Subjective: ALERT,NO COMPLAINT,NO URINARY PROBLEM Objective: 01/11/18 08:24 Vital Signs Temperature 96.8 F L 01/11/18 07:10 Pulse Rate 77 01/11/18 07:10 Respiratory Rate 18 01/11/18 07:10 Blood Pressure 123/74 01/11/18 07:10 O2 Sat by Pulse Oximetry (%) Assessment: 01/11/18 08:24 DETOX COMPLETED,NO WITHDRAWAL SYMPTOM Plan: DISCHARGE TODAY,FOLLOW UP WITH AFTER CARE PROGRAM ARRANGEMENT
--- NOTE | 2018-01-11 08:29 | DS ---
[facility] Detox Discharge Summary Admission Date: 01/07/18 Discharge Date: 01/11/18 - History Present History: Alcohol Dependence, Cocaine Dependence Additional Comments: FOLLOW UP WITH AFTER CARE PROGRAM ARRANGEMENT Pertinent Past History: ORAL DEFORMITY OF JAW WEIGHT LOSS - Physical Exam Results Vital Signs: Vital Signs Temperature 96.8 F L 01/11/18 07:10 Pulse Rate 77 01/11/18 07:10 Respiratory Rate 18 01/11/18 07:10 Blood Pressure 123/74 01/11/18 07:10 O2 Sat by Pulse Oximetry (%) Pertinent Admission Physical Exam Findings: WITHDRAWAL SIGNS AND SYMPTOM Laboratory Last Values WBC 3.4 K/mm3 (4.0-10.0) L 01/08/18 06:00 RBC 3.73 M/mm3 (4.00-5.60) L 01/08/18 06:00 Hgb 12.9 GM/dL (11.7-16.9) 01/08/18 06:00 Hct 38.0 % (35.4-49) 01/08/18 06:00 MCV 101.9 fl (80-96) H 01/08/18 06:00 MCH 34.7 pg (25.7-33.7) H 01/08/18 06:00 MCHC 34.0 g/dl (32.0-35.9) 01/08/18 06:00 RDW 12.7 % (11.9-15.9) 01/08/18 06:00 Plt Count 152 K/MM3 (134-434) 01/08/18 06:00 MPV 7.8 fl (7.5-11.1) 01/08/18 06:00 Sodium 135 mmol/L (136-145) L 01/08/18 06:00 Potassium 3.5 mmol/L (3.5-5.1) 01/08/18 06:00 Chloride 98 mmol/L (98-107) 01/08/18 06:00 Carbon Dioxide 27 mmol/L (21-32) 01/08/18 06:00 Anion Gap 10 (8-16) 01/08/18 06:00 BUN 4 mg/dL (7-18) L D 01/08/18 06:00 Creatinine 0.7 mg/dL (0.7-1.3) 01/08/18 06:00 Creat Clearance w eGFR > 60 (>60) 01/08/18 06:00 Random Glucose 92 mg/dL (74-106) D 01/08/18 06:00 Calcium 9.1 mg/dL (8.5-10.1) 01/08/18 06:00 Total Bilirubin 1.1 mg/dL (0.2-1.0) H D 01/08/18 06:00 AST 177 U/L (15-37) H D 01/08/18 06:00 ALT 109 U/L (12-78) H D 01/08/18 06:00 Alkaline Phosphatase 71 U/L (45-117) 01/08/18 06:00 Total Protein 8.2 g/dl (6.4-8.2) 01/08/18 06:00 Albumin 3.9 g/dl (3.4-5.0) 01/08/18 06:00 Urine Color Graciela 01/10/18 13:40 Urine Appearance Turbid 01/10/18 13:40 Urine pH 5.0 (5.0-8.0) 01/10/18 13:40 Ur Specific [place] 1.030 (1.001-1.035) 01/10/18 13:40 Urine Protein Negative (NEGATIVE) 01/10/18 13:40 Urine Glucose (UA) Negative (NEGATIVE) 01/10/18 13:40 Urine Ketones Negative (NEGATIVE) 01/10/18 13:40 Urine Blood Negative (NEGATIVE) 01/10/18 13:40 Urine Nitrite Negative (NEGATIVE) 01/10/18 13:40 Urine Bilirubin Negative (<2.0 mg/dL) 01/10/18 13:40 Urine Urobilinogen 2.0 mg/dL (0.2-1.0) 01/10/18 13:40 Ur Leukocyte Esterase 1+ (NEGATIVE) H 01/10/18 13:40 Urine WBC (Auto) 28 /hpf (3-5) 01/10/18 13:40 Urine RBC (Auto) 1 /hpf (0-3) 01/10/18 13:40 Ur Epithelial Cells Rare /HPF (FEW) 01/10/18 13:40 Urine Bacteria Rare /hpf (NONE SEEN) 01/07/18 08:00 Hyaline Casts 4 /lpf 01/07/18 08:00 Urine Mucus Moderate 01/10/18 13:40 RPR Titer Nonreactive (NONREACTIVE) 01/08/18 06:00 Vital Signs Temperature 96.8 F L 01/11/18 07:10 Pulse Rate 77 01/11/18 07:10 Respiratory Rate 01/11/18 07:10 Blood Pressure 123/74 01/11/18 07:10 O2 Sat by Pulse Oximetry (%) - Treatment Hospital Course: Detox Protocol Followed, Detoxed Safely, Responded well, Discharged Condition Good Patient has Accepted a Rehab Referral to: DECLINED - Medication Discharge Medications: Ambulatory Orders Mirtazapine [Remeron -] 15 mg PO HS #30 tablet 08/25/17 - Diagnosis (1) Alcohol dependence with uncomplicated withdrawal Current Visit: Yes Status: Acute (2) Cannabis dependence Current Visit: Yes Status: Acute (3) 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
[2018-01-11 10:20] VITALS: BP 111/80; PULSE 88; TEMP 98.1
== END 2018-01-11 10:56 | disposition home or self-care (01) | DRG 774 ==
LOC: YASAS 19:34 → Y6N 21:28
PROVIDERS: ADMIT Internal Medicine; ATTEND Internal Medicine
PROC: HZ2ZZZZ Detoxification Services for Substance Abuse Treatment (ICD-10-PCS; principal; 2018-01-07)
DX: F10.230 Alcohol dependence with withdrawal, uncomplicated (principal); F14.20 Cocaine dependence, uncomplicated; F10.24 Alcohol dependence with alcohol-induced mood disorder; F19.24 Other psychoactive substance dependence with psychoactive substance-induced mood disorder; F19.282 Other psychoactive substance dependence with psychoactive substance-induced sleep disorder; G47.00 Insomnia, unspecified; M26.9 Dentofacial anomaly, unspecified; R63.4 Abnormal weight loss; Z68.1 Body mass index [BMI] 19.9 or less, adult
CPT/HCPCS: 36415; 80053; 81003; 81015; 85027; 86593; 93005; 93010

== ENCOUNTER 2018-02-28 19:42 | Inpatient (IN) | payer OTHER ==
[2018-02-28 19:58] VITALS: BMI 18.0
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
[2018-02-28] MEDS ORDERED: hydrOXYzine PAMOATE 50 MG CAPSULE (FP) PO PRN (21:06)
[2018-02-28] MEDS ORDERED: MAGNESIUM CITRATE 300 ML BOTTLE PO PRN (21:06)
[2018-02-28] MEDS ORDERED: ACETAMINOPHEN 325 MG TABLET (FP) PO PRN (21:06)
[2018-02-28] MEDS ORDERED: LOPERAMIDE HCL 2 MG CAPSULE PO PRN (21:06)
[2018-02-28] MEDS ORDERED: guaiFENesin/D-METHORPHAN HB 10 ML UNIT-DOSE CUPS PO PRN (21:06)
[2018-02-28] MEDS ORDERED: IBUPROFEN 400 MG TABLET (FP) PO PRN (21:06)
[2018-02-28] MEDS ORDERED: MAGNESIUM HYDROX 2400MG/30ML ORAL SUSPENSION 30 ML CUP PO PRN (21:06)
[2018-02-28] MEDS ORDERED: P-EPHED 60MG/TRIPROLIDI 2.5MG TABLET PO PRN (21:06)
[2018-02-28] MEDS ORDERED: MAG HYDROX/AL HYDROX/SIMETH 30 ML UNIT-DOSE CUP PO PRN (21:06)
[2018-02-28] MEDS ORDERED: MENTHOL/PHENOL 1 EACH UD MM PRN (21:06)
[2018-02-28] MEDS ORDERED: chlordiazePOXIDE HCL 25 MG CAPSULE PO PRN (21:06)
[2018-02-28] MEDS: MELATONIN 5 MG TABLETS PO PRN (23:38)
[2018-02-28] MEDS: THIAMINE HCL 100 MG TABLET (FP) PO SCH (23:38)
[2018-02-28] MEDS: chlordiazePOXIDE HCL 25 MG CAPSULE PO SCH (23:40)
[2018-03-01] MEDS: chlordiazePOXIDE HCL 25 MG CAPSULE PO SCH ×4 (05:59→22:10)
--- NOTE | 2018-03-01 09:40 | EKG ---
Test Reason : Blood Pressure : / mmHG Vent. Rate : 072 BPM Atrial Rate : 072 BPM P-R Int : 174 ms QRS Dur : 082 ms QT Int : 420 ms P-R-T Axes : 075 054 055 degrees QTc Int : 459 ms NORMAL SINUS RHYTHM POSSIBLE LEFT ATRIAL ENLARGEMENT BORDERLINE ECG WHEN COMPARED WITH ECG OF 07-JAN-2018 22:40, NO SIGNIFICANT CHANGE WAS FOUND Confirmed by CHERELLE PURCELL, MARGOT ([id number]) on 03/01/2018 9:39:32 AM Referred By: Confirmed By:MARGOT VILLARREAL MD
[2018-03-01 10:16] LABS: HEMATOCRIT 35.7 % (35.4-49); HEMOGLOBIN 12.2 GM/dL (11.7-16.9); MCH 34.3 pg (25.7-33.7); MCHC 34.2 g/dl (32.0-35.9); MEAN CELL VOLUME 100.5 fl (80-96); MEAN PLT VOLUME 7.6 fl (7.5-11.1); PLATELET COUNT 149 K/MM3 (134-434); RBC 3.55 M/mm3 (4.00-5.60); WHITE BLOOD COUNT 2.9 K/mm3 (4.0-10.0)
[2018-03-01 10:32] LABS: CHLORIDE 103 mmol/L (98-107); POTASSIUM 3.3 mmol/L (3.5-5.1); SODIUM 142 mmol/L (136-145)
[2018-03-01] MEDS: PRENATAL VITAMINS W/ FOLIC ACID TABLET (FP) PO SCH (10:56)
[2018-03-01 11:27] LABS: ALBUMIN 3.6 g/dl (3.4-5.0); ALK PHOS 59 U/L (45-117); ANION GAP 14 (8-16); BILIRUBIN,TOTAL 2.1 mg/dL (0.2-1.0); BLOOD UREA NITROGEN 4 mg/dL (7-18); CALCIUM 8.7 mg/dL (8.5-10.1); CO2 25 mmol/L (21-32); CREATININE 0.6 mg/dL (0.7-1.3); GLUCOSE,RANDOM 64 mg/dL (74-106); SGOT/AST 40 U/L (15-37); SGPT/ALT 20 U/L (12-78); TOT PROT 7.6 g/dl (6.4-8.2)
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
[2018-03-01] MEDS: THIAMINE HCL 100 MG TABLET (FP) PO SCH (22:10)
[2018-03-01] MEDS: MELATONIN 5 MG TABLETS PO PRN (22:10)
[2018-03-02] MEDS: chlordiazePOXIDE HCL 25 MG CAPSULE PO SCH ×3 (05:33→17:20)
[2018-03-02] MEDS: PRENATAL VITAMINS W/ FOLIC ACID TABLET (FP) PO SCH (10:34)
[2018-03-02] MEDS ORDERED: POTASSIUM CHLORIDE ORAL LIQUID 20 MEQ/15 ML PO ONE (11:25)
--- NOTE | 2018-03-02 11:25 | PN ---
[facility] CIWA - CIWA Score Nausea/Vomitin-No Nausea/No Vomiting Muscle Tremors: 5 Anxiety: 4-Mod. Anxious/Guarded Agitation: 3 Paroxysmal Sweats: 1-Minimal Palms Moist Orientation: 0-Oriented Tacttile Disturbances: 0-None Auditory Disturbances: 0-None Visual Disturbances: 0-None Headache: 0-None Present CIWA-Ar Total Score: 13 BHS Progress Note (SOAP) Subjective: ANXIETY,TREMORS,CHILLS,FATIGUE. REPORTS LESS WITHDRAWAL SX TODAY AND BETTER THAN YESTERDAY. Objective: 03/02/18 11:24 - Vital Signs 03/02/18 09:24 Temperature 97.5 F L Pulse Rate 99 H Respiratory 20 Rate Blood Pressure 142/93 Laboratory Tests 03/01/18 03/01/18 03/01/18 06:40 06:40 06:40 WBC 2.9 L RBC 3.55 L Hgb 12.2 Hct 35.7 MCV 100.5 H MCH 34.3 H MCHC 34.2 RDW 13.0 Plt Count 149 MPV 7.6 Sodium 142 Potassium 3.3 L Chloride 103 Carbon Dioxide 25 Anion Gap 14 BUN 4 L Creatinine 0.6 L Creat Clearance w eGFR > 60 Random Glucose 64 L D Calcium 8.7 Total Bilirubin 2.1 H D AST 40 H D ALT 20 D Alkaline Phosphatase 59 Total Protein 7.6 Albumin 3.6 RPR Titer Nonreactive K+ = 3.3 OTHER LAB SPENDING Assessment: 03/02/18 11:24 WITHDRAWAL SX HYPOKALEMIA Plan: CONTINUE DETOX KDUR 20 MEQ PO BID
[2018-03-02 18:07] LABS: URINE APPEARANCE CLEAR; URINE BILIRUBIN NEGATIVE (<2.0 mg/dL); URINE COLOR AMBER; URINE GLUCOSE (UA) NEGATIVE (NEGATIVE); URINE KETONE TRACE (NEGATIVE); URINE LEUK ESTERASE NEGATIVE (NEGATIVE); URINE NITRITE NEGATIVE (NEGATIVE); URINE UROBILINOGEN 4.0 E.U/dl mg/dL (0.2-1.0)
[2018-03-02 18:29] LABS: URINE PROTEIN 2+ (NEGATIVE)
[2018-03-02 18:47] LABS: EPI CELLS RARE /HPF (FEW); URINE MUCUS RARE
[2018-03-02] MEDS: POTASSIUM CHLORIDE ORAL LIQUID 20 MEQ/15 ML PO SCH (22:39)
[2018-03-02] MEDS: MELATONIN 5 MG TABLETS PO PRN (22:39)
[2018-03-02] MEDS: chlordiazePOXIDE 5 MG CAPSULE PO SCH (22:40)
[2018-03-02] MEDS: THIAMINE HCL 100 MG TABLET (FP) PO SCH (22:40)
[2018-03-03] MEDS: chlordiazePOXIDE 5 MG CAPSULE PO SCH ×3 (05:27→17:21)
[2018-03-03] MEDS: POTASSIUM CHLORIDE ORAL LIQUID 20 MEQ/15 ML PO SCH ×2 (10:45→22:10)
[2018-03-03] MEDS: PRENATAL VITAMINS W/ FOLIC ACID TABLET (FP) PO SCH (10:45)
--- NOTE | 2018-03-03 15:16 | PN ---
BHS Progress Note (SOAP) Subjective: Nausea, Tremors, Diarrhea. Objective: PATIENT A & O X 3, OBSERVED AMBULATING ON UNIT. NO ACUTE DISTRESS. 03/03/18 15:14 Vital Signs Temperature 97.4 F L 03/03/18 14:41 Pulse Rate 73 03/03/18 14:41 Respiratory Rate 18 03/03/18 14:41 Blood Pressure 154/78 03/03/18 14:41 O2 Sat by Pulse Oximetry (%) Laboratory Tests 03/01/18 03/01/18 03/01/18 06:40 06:40 06:40 WBC 2.9 L RBC 3.55 L Hgb 12.2 Hct 35.7 MCV 100.5 H MCH 34.3 H MCHC 34.2 RDW 13.0 Plt Count 149 MPV 7.6 Sodium 142 Potassium 3.3 L Chloride 103 Carbon Dioxide 25 Anion Gap 14 BUN 4 L Creatinine 0.6 L Creat Clearance w eGFR > 60 Random Glucose 64 L D Calcium 8.7 Total Bilirubin 2.1 H D AST 40 H D ALT 20 D Alkaline Phosphatase 59 Total Protein 7.6 Albumin 3.6 Urine Color Urine Appearance Urine pH Ur Specific [place] Urine Protein Urine Glucose (UA) Urine Ketones Urine Blood Urine Nitrite Urine Bilirubin Urine Urobilinogen Ur Leukocyte Esterase Urine WBC (Auto) Urine RBC (Auto) Ur Epithelial Cells Urine Mucus RPR Titer Nonreactive 03/02/18 14:54 WBC RBC Hgb Hct MCV MCH MCHC RDW Plt Count MPV Sodium Potassium Chloride Carbon Dioxide Anion Gap BUN Creatinine Creat Clearance w eGFR Random Glucose Calcium Total Bilirubin AST ALT Alkaline Phosphatase Total Protein Albumin Urine Color Graciela Urine Appearance Clear Urine pH 7.0 D Ur Specific [place] 1.025 Urine Protein 2+ H Urine Glucose (UA) Negative Urine Ketones Trace H Urine Blood Negative Urine Nitrite Negative Urine Bilirubin Negative Urine Urobilinogen 4.0 e.u/dl Ur Leukocyte Esterase Negative Urine WBC (Auto) 10 Urine RBC (Auto) 2 Ur Epithelial Cells Rare Urine Mucus Rare RPR Titer LABS NOTED. Assessment: 03/03/18 15:14 WITHDRAWAL SYMPTOMS. Plan: CONTINUE DETOX. INCREASE DAILY PO FLUID INTAKE.
[2018-03-03] MEDS: chlordiazePOXIDE HCL 10 MG CAPSULE PO SCH (22:10)
[2018-03-03] MEDS: THIAMINE HCL 100 MG TABLET (FP) PO SCH (22:10)
[2018-03-03] MEDS: MELATONIN 5 MG TABLETS PO PRN (22:10)
[2018-03-04] MEDS: chlordiazePOXIDE HCL 10 MG CAPSULE PO SCH ×3 (05:52→17:18)
[2018-03-04] MEDS: POTASSIUM CHLORIDE ORAL LIQUID 20 MEQ/15 ML PO SCH ×2 (10:55→22:20)
[2018-03-04] MEDS: PRENATAL VITAMINS W/ FOLIC ACID TABLET (FP) PO SCH (10:55)
--- NOTE | 2018-03-04 20:32 | PN ---
S Progress Note (SOAP) Subjective: Tremors, Fatigue, Sweating, Anxious. Objective: PATIENT A & O X 3, OBSERVED AMBULATING ON UNIT. NO ACUTE DISTRESS. 03/04/18 20:22 Vital Signs Temperature 97.6 F 03/04/18 17:35 Pulse Rate 72 03/04/18 17:35 Respiratory Rate 18 03/04/18 17:35 Blood Pressure 130/79 03/04/18 17:35 O2 Sat by Pulse Oximetry (%) Laboratory Tests 03/01/18 03/01/18 03/01/18 06:40 06:40 06:40 WBC 2.9 L RBC 3.55 L Hgb 12.2 Hct 35.7 MCV 100.5 H MCH 34.3 H MCHC 34.2 RDW 13.0 Plt Count 149 MPV 7.6 Sodium 142 Potassium 3.3 L Chloride 103 Carbon Dioxide 25 Anion Gap 14 BUN 4 L Creatinine 0.6 L Creat Clearance w eGFR > 60 Random Glucose 64 L D Calcium 8.7 Total Bilirubin 2.1 H D AST 40 H D ALT 20 D Alkaline Phosphatase 59 Total Protein 7.6 Albumin 3.6 Urine Color Urine Appearance Urine pH Ur Specific [place] Urine Protein Urine Glucose (UA) Urine Ketones Urine Blood Urine Nitrite Urine Bilirubin Urine Urobilinogen Ur Leukocyte Esterase Urine WBC (Auto) Urine RBC (Auto) Ur Epithelial Cells Urine Mucus RPR Titer Nonreactive 03/02/18 14:54 WBC RBC Hgb Hct MCV MCH MCHC RDW Plt Count MPV Sodium Potassium Chloride Carbon Dioxide Anion Gap BUN Creatinine Creat Clearance w eGFR Random Glucose Calcium Total Bilirubin AST ALT Alkaline Phosphatase Total Protein Albumin Urine Color Graciela Urine Appearance Clear Urine pH 7.0 D Ur Specific [place] 1.025 Urine Protein 2+ H Urine Glucose (UA) Negative Urine Ketones Trace H Urine Blood Negative Urine Nitrite Negative Urine Bilirubin Negative Urine Urobilinogen 4.0 e.u/dl Ur Leukocyte Esterase Negative Urine WBC (Auto) 10 Urine RBC (Auto) 2 Ur Epithelial Cells Rare Urine Mucus Rare RPR Titer LABS NOTED. Assessment: 03/04/18 20:23 WITHDRAWAL SYMPTOMS. Plan: CONTINUE DETOX. DUE TO LINGERING PERSISTENT WITHDRAWAL SYMPTOMS AND DIFFICULTY IN AMBULATION, AND PATIENT'S INTEREST IN ATTENDING [facility] (NO BEDS AVAILABLE THERE AT THIS TIME), PATIENT PERMITTED TO REMAIN ON DETOX UNIT UNTIL TUESDAY, , AT WHICH TIME HE AND HIS COUNSELOR WILL EXPLORE POSSIBLE ADMISSION TO [facility].
[2018-03-04] MEDS: MELATONIN 5 MG TABLETS PO PRN (22:20)
[2018-03-04] MEDS: THIAMINE HCL 100 MG TABLET (FP) PO SCH (22:20)
[2018-03-05] MEDS: POTASSIUM CHLORIDE ORAL LIQUID 20 MEQ/15 ML PO SCH ×2 (10:23→22:15)
[2018-03-05] MEDS: PRENATAL VITAMINS W/ FOLIC ACID TABLET (FP) PO SCH (10:23)
--- NOTE | 2018-03-05 11:32 | PN ---
[facility] Progress Note Note: interrupted sleep, chills, sweats Vital Signs Temperature 98 F 03/05/18 09:27 Pulse Rate 93 H 03/05/18 09:27 Respiratory Rate 20 03/05/18 09:27 Blood Pressure 127/87 03/05/18 09:27 O2 Sat by Pulse Oximetry (%) Laboratory Last Values WBC 2.9 K/mm3 (4.0-10.0) L 03/01/18 06:40 RBC 3.55 M/mm3 (4.00-5.60) L 03/01/18 06:40 Hgb 12.2 GM/dL (11.7-16.9) 03/01/18 06:40 Hct 35.7 % (35.4-49) 03/01/18 06:40 MCV 100.5 fl (80-96) H 03/01/18 06:40 MCH 34.3 pg (25.7-33.7) H 03/01/18 06:40 MCHC 34.2 g/dl (32.0-35.9) 03/01/18 06:40 RDW 13.0 % (11.9-15.9) 03/01/18 06:40 Plt Count 149 K/MM3 (134-434) 03/01/18 06:40 MPV 7.6 fl (7.5-11.1) 03/01/18 06:40 Sodium 142 mmol/L (136-145) 03/01/18 06:40 Potassium 3.3 mmol/L (3.5-5.1) L 03/01/18 06:40 Chloride 103 mmol/L (98-107) 03/01/18 06:40 Carbon Dioxide 25 mmol/L (21-32) 03/01/18 06:40 Anion Gap 14 (8-16) 03/01/18 06:40 BUN 4 mg/dL (7-18) L 03/01/18 06:40 Creatinine 0.6 mg/dL (0.7-1.3) L 03/01/18 06:40 Creat Clearance w eGFR > 60 (>60) 03/01/18 06:40 Random Glucose 64 mg/dL (74-106) L D 03/01/18 06:40 Calcium 8.7 mg/dL (8.5-10.1) 03/01/18 06:40 Total Bilirubin 2.1 mg/dL (0.2-1.0) H D 03/01/18 06:40 AST 40 U/L (15-37) H D 03/01/18 06:40 ALT 20 U/L (12-78) D 03/01/18 06:40 Alkaline Phosphatase 59 U/L (45-117) 03/01/18 06:40 Total Protein 7.6 g/dl (6.4-8.2) 03/01/18 06:40 Albumin 3.6 g/dl (3.4-5.0) 03/01/18 06:40 Urine Color Graciela 03/02/18 14:54 Urine Appearance Clear 03/02/18 14:54 Urine pH 7.0 (5.0-8.0) D 03/02/18 14:54 Ur Specific [place] 1.025 (1.001-1.035) 03/02/18 14:54 Urine Protein 2+ (NEGATIVE) H 03/02/18 14:54 Urine Glucose (UA) Negative (NEGATIVE) 03/02/18 14:54 Urine Ketones Trace (NEGATIVE) H 03/02/18 14:54 Urine Blood Negative (NEGATIVE) 03/02/18 14:54 Urine Nitrite Negative (NEGATIVE) 03/02/18 14:54 Urine Bilirubin Negative (<2.0 mg/dL) 03/02/18 14:54 Urine Urobilinogen 4.0 e.u/dl mg/dL (0.2-1.0) 03/02/18 14:54 Ur Leukocyte Esterase Negative (NEGATIVE) 03/02/18 14:54 Urine WBC (Auto) 10 /hpf (3-5) 03/02/18 14:54 Urine RBC (Auto) 2 /hpf (0-3) 03/02/18 14:54 Ur Epithelial Cells Rare /HPF (FEW) 03/02/18 14:54 Urine Mucus Rare 03/02/18 14:54 RPR Titer Nonreactive (NONREACTIVE) 03/01/18 06:40 AOx3 in no apparent distress no adventitious breath sounds full ROM - withdrawal sx Plan: d/c tomorrow to [facility] increase fluids continue to monitor
[2018-03-05] MEDS: THIAMINE HCL 100 MG TABLET (FP) PO SCH (22:15)
[2018-03-05] MEDS: MELATONIN 5 MG TABLETS PO PRN (22:15)
[2018-03-06] MEDS: POTASSIUM CHLORIDE ORAL LIQUID 20 MEQ/15 ML PO SCH (10:18)
[2018-03-06] MEDS: PRENATAL VITAMINS W/ FOLIC ACID TABLET (FP) PO SCH (10:18)
--- NOTE | 2018-03-06 11:43 | PN ---
S Progress Note (SOAP) Subjective: Denies any symptoms Objective: 03/06/18 11:41 A & O x 3 Ambulates steadily Uses mask to cover mouth/nose area Vital Signs Temperature 97.4 F L 03/06/18 09:04 Pulse Rate 90 03/06/18 09:04 Respiratory Rate 20 03/06/18 09:04 Blood Pressure 125/84 03/06/18 09:04 O2 Sat by Pulse Oximetry (%) Assessment: 03/06/18 11:43 Withdrawal safely concluded Plan: For d/c
--- NOTE | 2018-03-06 11:48 | DS ---
[facility] Detox Discharge Summary Admission Date: 02/28/18 Discharge Date: 03/06/18 - History Additional Comments: Pt for d/c Had earlier refused Rehab, but now wants to do in-house rehab No bed in [facility] rehab, [facility] - Physical Exam Results Vital Signs: Vital Signs Temperature 97.4 F L 03/06/18 09:04 Pulse Rate 90 03/06/18 09:04 Respiratory Rate 20 03/06/18 09:04 Blood Pressure 125/84 03/06/18 09:04 O2 Sat by Pulse Oximetry (%) Pertinent Admission Physical Exam Findings: withdrawal sx - Treatment Hospital Course: Detox Protocol Followed, Detoxed Safely, Responded well, Discharged Condition Good, Rehab Referral Accepted Patient has Accepted a Rehab Referral to: [facility] - Medication Discharge Medications: Ambulatory Orders Mirtazapine [Remeron -] 15 mg PO HS #30 tablet 08/25/17 - Diagnosis (1) Alcohol dependence with uncomplicated withdrawal Status: Acute (2) Nicotine dependence Status: Acute Qualifiers: Nicotine product type: cigarettes Substance use status: in withdrawal Qualified Code(s): F17.213 - Nicotine dependence, cigarettes, with withdrawal (3) Substance induced mood disorder Status: Acute (4) Weight loss Status: Acute (5) Oral deformity of jaw Status: Chronic - AMA Did Patient Leave Against Medical Advice: No
[2018-03-06 13:42] VITALS: BP 128/85; PULSE 81; TEMP 98.1
== END 2018-03-06 15:30 | disposition home or self-care (01) | DRG 775 ==
LOC: YASAS 19:42 → Y3N 20:42
PROVIDERS: ADMIT Surgery; ATTEND Surgery
PROC: HZ2ZZZZ Detoxification Services for Substance Abuse Treatment (ICD-10-PCS; principal; 2018-02-28)
DX: F10.230 Alcohol dependence with withdrawal, uncomplicated (principal); F10.280 Alcohol dependence with alcohol-induced anxiety disorder; F17.213 Nicotine dependence, cigarettes, with withdrawal; F19.24 Other psychoactive substance dependence with psychoactive substance-induced mood disorder; E87.6 Hypokalemia; M26.9 Dentofacial anomaly, unspecified; G47.00 Insomnia, unspecified; Z87.828 Personal history of other (healed) physical injury and trauma; Z87.898 Personal history of other specified conditions
CPT/HCPCS: 36415; 80053; 81003; 81015; 85027; 86593; 93005; 93010

== ENCOUNTER 2019-05-06 20:01 | Inpatient (IN) | payer OTHER ==
[2019-05-06] MEDS ORDERED: ONDANSETRON 4 MG/2 ML VIAL IVPUSH ONE (21:44)
[2019-05-06] MEDS ORDERED: SODIUM CHLORIDE 1,000 ML IV STA (21:44)
[2019-05-06] MEDS ORDERED: ACETAMINOPHEN 1000 MG/100 ML VIAL (NON FORMULARY) IVPB ONE (21:44)
[2019-05-06] MEDS ORDERED: morphine CARPU-JECT 2 MG/1 ML DISP.SYRIN IVPUSH ONE (21:51)
[2019-05-06] MEDS ORDERED: chlordiazePOXIDE HCL 25 MG CAPSULE PO ONE (21:51)
[2019-05-06] MEDS ORDERED: MORPHINE SULFATE 2 MG/ML VIAL ONE (22:06)
[2019-05-06] MEDS ORDERED: chlordiazePOXIDE HCL 25 MG CAPSULE ONE (22:06)
[2019-05-06] MEDS ORDERED: ONDANSETRON 4 MG/2 ML VIAL ONE (22:07)
[2019-05-06] MEDS ORDERED: ACETAMINOPHEN INJECTION 100 ML IVPB ONE (22:07)
[2019-05-06 22:08] LABS: BASO % 0.6 % (0-2.0); EOS % 0.1 % (0-4.5); HEMATOCRIT 43.8 % (35.4-49); HEMOGLOBIN 14.8 GM/dL (11.7-16.9); LYMPH % 7.1 % (8-40); MCH 34.9 pg (25.7-33.7); MCHC 33.7 g/dl (32.0-35.9); MEAN CELL VOLUME 103.7 fl (80-96); MEAN PLT VOLUME 7.9 fl (7.5-11.1); MONO % 10.7 % (3.8-10.2); NEUT % 81.5 % (42.8-82.8); PLATELET COUNT 227 K/MM3 (134-434); RBC 4.22 M/mm3 (4.00-5.60); RDW 12.6 % (11.9-15.9); WHITE BLOOD COUNT 11.2 K/mm3 (4.0-10.0)
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
[2019-05-06 22:21] LABS: INR 1.04 (0.83-1.09); PROTHROMBIN TIME (PATIENT) 12.3 SEC (9.7-13.0)
[2019-05-06] MEDS ORDERED: FOLIC ACID INJECTION - 1 MG, THIAMINE HCL 100 MG, MULTIVIT INJECTION ADULT 10 ML in SOD... IVPB ONE (22:22)
[2019-05-06 22:23] LABS: ACTIVATED PTT 34.1 SECONDS (25.2-36.5)
[2019-05-06 22:32] LABS: ALBUMIN 4.5 g/dl (3.4-5.0); BILIRUBIN,TOTAL 2.7 mg/dL (0.2-1); BLOOD UREA NITROGEN 10.9 mg/dL (7-18); CALCIUM 10.2 mg/dL (8.5-10.1); CREATININE 1.1 mg/dL (0.55-1.3); POTASSIUM 4.1 mmol/L (3.5-5.1); TOT PROT 9.5 g/dl (6.4-8.2)
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
[2019-05-07] MEDS ORDERED: MORPHINE SULFATE 2 MG/ML VIAL IVPUSH PRN (03:22)
[2019-05-07] MEDS ORDERED: chlordiazePOXIDE HCL 25 MG CAPSULE PO PRN (03:23)
[2019-05-07 03:38] LABS: URINE APPEARANCE Clear; URINE BILIRUBIN 2+ (NEGATIVE); URINE COLOR Amber; URINE GLUCOSE (UA) Negative (NEGATIVE); URINE KETONE 2+ (NEGATIVE); URINE LEUK ESTERASE Negative (NEGATIVE); URINE NITRITE Positive (NEGATIVE); URINE PROTEIN 2+ (NEGATIVE)
[2019-05-07] MEDS: DEXTROSE 5%-0.45% SALINE 1,000 ML IV SCH ×2 (04:00→14:37)
[2019-05-07 04:21] LABS: EPI CELLS 9.7 /HPF (0-5/HPF); HYALINE CASTS 36.51 /lpf (0-8); URINE BACTERIA 6.9 /hpf (NEGATIVE); URINE RBC 1.4 /hpf (0-4)
[2019-05-07] MEDS: FOLIC ACID 1 MG TABLET (FP) PO SCH ×2 (04:24→10:33)
[2019-05-07 05:05] VITALS: BMI 17.9
[2019-05-07] MEDS: ONDANSETRON 4 MG/2 ML VIAL IVPUSH PRN ×2 (06:16→14:35)
[2019-05-07] MEDS: chlordiazePOXIDE HCL 25 MG CAPSULE PO SCH ×3 (06:16→21:08)
[2019-05-07 07:28] LABS: BASO % 0.8 % (0-2.0); EOS % 0.3 % (0-4.5); HEMATOCRIT 38.1 % (35.4-49); HEMOGLOBIN 13.2 GM/dL (11.7-16.9); LYMPH % 17.2 % (8-40); MCH 35.7 pg (25.7-33.7); MCHC 34.5 g/dl (32.0-35.9); MEAN CELL VOLUME 103.3 fl (80-96); MONO % 12.4 % (3.8-10.2); NEUT % 69.3 % (42.8-82.8); PLATELET COUNT 194 K/MM3 (134-434); RBC 3.68 M/mm3 (4.00-5.60); RDW 12.6 % (11.9-15.9); WHITE BLOOD COUNT 8.2 K/mm3 (4.0-10.0)
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
[2019-05-07] MEDS ORDERED: PIPERACILLIN/TAZOBACTAM 3.375 GM VIAL IVPB ONE ×2 (10:30→17:30)
[2019-05-07] MEDS ORDERED: DEXTROSE 5%-WATER - 50 ML IVPB ONE ×2 (10:30→17:30)
[2019-05-07] MEDS: THIAMINE HCL 100 MG TABLET (FP) PO SCH (10:33)
[2019-05-07] MEDS: PIPERACILLIN/TAZOB 3.375 GM 3.375 GM in DEXTROSE 5%-WATER - 50 ML IVPB SCH ×2 (10:34→17:48)
[2019-05-07 12:38] LABS: ALBUMIN 3.6 g/dl (3.4-5.0); BILIRUBIN,TOTAL 2.4 mg/dL (0.2-1); BLOOD UREA NITROGEN 7.4 mg/dL (7-18); CALCIUM 8.5 mg/dL (8.5-10.1); CREATININE 0.7 mg/dL (0.55-1.3); POTASSIUM 3.3 mmol/L (3.5-5.1); TOT PROT 7.6 g/dl (6.4-8.2)
[2019-05-07] MEDS ORDERED: POTASSIUM CHLORIDE TABS 20 MEQ TABLET.ER (FP) PO ONE (22:30)
--- NOTE | 2019-05-08 02:58 | HP ---
Admitting History and Physical - Admission Chief Complaint: Pt seen and examined 05/07/19 however note is being entered now History of Present Illness: Patient is a 48 y/o male with past medical history of ETOH abuse and pancreatitis. Patient presented to ER with complaints of abdominal pain accompanied with nausea and NBNB vomiting. He says the abdominal pain started 3 days ago after he bought and ate food from the [employer] store. Pain is described as sharp, nonradiaitng and located to RUQ. Patient has history of ETOH abuse and states he drinks 6-8 240z beers per day for more than 10 years. He denies IVDU. Abdominal US done wc showed distended gallbladder w/ sludge and lipase elevated at 449. - Past Medical History Gastrointestinal: Yes: Pancreatitis Psych: Yes: Addictions (etoh abuse) - Past Surgical History Past Surgical History: Yes: Appendectomy - Smoking History Smoking history: Current some day smoker Have you smoked in the past 12 months: Yes Aproximately how many cigarettes per day: 0 - Alcohol/Substance Use Hx Alcohol Use: Yes - Social History ADL: Independent History of Recent Travel: No Home Medications - Allergies Allergies/Adverse Reactions: Allergies Allergy/AdvReac Type Severity Reaction Status Date / Time No Known Allergies Allergy Verified 05/06/19 20:07 - Home Medications Home Medications: Ambulatory Orders Mirtazapine [Remeron -] 15 mg PO HS #30 tablet 08/25/17 Family Disease History - Family Disease History Family History: Unremarkable Family Disease History: Other: Father (alcohol), Mother (alcohol, gambling), Sister (gambling, alcohol) Review of Systems - Review of Systems Constitutional: reports: No Symptoms Eyes: reports: No Symptoms HENT: reports: No Symptoms Neck: reports: No Symptoms Cardiovascular: reports: No Symptoms Respiratory: reports: No Symptoms Gastrointestinal: reports: Abdominal Pain, Vomiting Genitourinary: reports: No Symptoms Physical Examination Vital Signs: Vital Signs Temperature 98.6 F 05/07/19 20:10 Pulse Rate 62 05/07/19 20:10 Respiratory Rate 20 05/07/19 20:10 Blood Pressure 153/93 05/07/19 20:10 O2 Sat by Pulse Oximetry (%) 98 05/07/19 21:00 Constitutional: Yes: No Distress Eyes: Yes: WNL HENT: Yes: WNL Neck: Yes: WNL, Supple Cardiovascular: Yes: WNL, Regular Rate and Rhythm Respiratory: Yes: WNL, Regular, CTA Bilaterally Gastrointestinal: Yes: WNL, Normal Bowel Sounds, Soft Extremities: Yes: Other (slight tremors of hands) Edema: No Neurological: Yes: WNL, Alert, Oriented ...Motor Strength: WNL Labs: CBC, BMP 05/07/19 05:42 05/07/19 05:42 Problem List - Problems (1) Abdominal pain Assessment/Plan: Alcoholic pancreatitis US abd showed distended gallbladder w/ sluge and dilated CBD Check MRI abd/MRCP Monitor amylase/lipase Cont NPO Cont IVF Cont IV flagyl/zosyn GI consult noted Code(s): R10.9 - UNSPECIFIED ABDOMINAL PAIN (2) Elevated LFTs Assessment/Plan: LFT's decreasing Cont to trend LFT's Due to alcoholic pancreatitis Code(s): R94.5 - ABNORMAL RESULTS OF LIVER FUNCTION STUDIES (3) Alcohol withdrawal Assessment/Plan: Taper librium Cont folic acid/thiamine Addiction med consult Code(s): F10.239 - ALCOHOL DEPENDENCE WITH WITHDRAWAL, UNSPECIFIED Qualifiers: Complication of substance-induced condition: uncomplicated Qualified Code(s ): F10.230 - Alcohol dependence with withdrawal, uncomplicated (4) HTN (hypertension) Assessment/Plan: Pt started on norvasc Check echo Code(s): I10 - ESSENTIAL (PRIMARY) HYPERTENSION
[2019-05-08] MEDS ORDERED: PIPERACILLIN/TAZOBACTAM 3.375 GM VIAL IVPB ONE ×3 (03:03→17:41)
[2019-05-08] MEDS ORDERED: DEXTROSE 5%-WATER - 50 ML IVPB ONE ×3 (03:03→17:42)
[2019-05-08] MEDS: PIPERACILLIN/TAZOB 3.375 GM 3.375 GM in DEXTROSE 5%-WATER - 50 ML IVPB SCH ×3 (03:09→17:52)
[2019-05-08] MEDS: chlordiazePOXIDE 5 MG CAPSULE PO SCH ×4 (06:00→22:08)
[2019-05-08 07:52] LABS: BASO % 1.2 % (0-2.0); EOS % 2.2 % (0-4.5); HEMATOCRIT 35.8 % (35.4-49); HEMOGLOBIN 12.5 GM/dL (11.7-16.9); MCH 35.6 pg (25.7-33.7); MCHC 34.8 g/dl (32.0-35.9); MEAN CELL VOLUME 102.2 fl (80-96); MEAN PLT VOLUME 7.6 fl (7.5-11.1); MONO % 16.4 % (3.8-10.2); NEUT % 63.2 % (42.8-82.8); PLATELET COUNT 191 K/MM3 (134-434); RBC 3.51 M/mm3 (4.00-5.60); RDW 12.3 % (11.9-15.9)
[2019-05-08 07:54] LABS: AMYLASE 56 U/L (25-115); LIPASE 148 U/L (73-393)
[2019-05-08 08:04] LABS: ALBUMIN 3.3 g/dl (3.4-5.0); BILIRUBIN,TOTAL 2.4 mg/dL (0.2-1); CALCIUM 8.6 mg/dL (8.5-10.1); CREATININE 0.7 mg/dL (0.55-1.3); POTASSIUM 3.2 mmol/L (3.5-5.1); TOT PROT 7.2 g/dl (6.4-8.2)
[2019-05-08] MEDS: amLODIPine BESYLATE 2.5 MG TABLET (FP) PO SCH (09:33)
[2019-05-08] MEDS: FOLIC ACID 1 MG TABLET (FP) PO SCH (09:34)
[2019-05-08] MEDS: THIAMINE HCL 100 MG TABLET (FP) PO SCH (09:35)
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
--- NOTE | 2019-05-08 12:21 | ECHO ---
Version: 1 Name: ANA MARIA WOODWARD Exam: Adult Echocardiogram Study Date: 05/08/2019, 8:26 AM Age: 48 Years MMode/2D Measurements & Calculations IVSd: 0.97 cm LVIDs: 3.5 cm LVIDd: 5.0 cm LVPWd: 0.85 cm LVOT diam: 1.99 cm Ao root diam: 3.0 cm LA dimension: 2.44 cm Doppler Measurements & Calculations MV E max yoshi: 42.9 cm/sec Med E/e': 8.5 MV A max yoshi: 53.3 cm/sec Med Peak E' Yoshi: 5.1 cm/sec MV E/A: 0.81 Lat E/e': 8.2 Lat Peak E' Yoshi: 5.2 cm/sec MR max P.4 mmHg Ao max P.0 mmHg MOLLY(I,D): 1.46 cm Ao mean P.7 mmHg LV V1 mean: 32.8 cm/sec Ao V2 max: 99.5 cm/sec LV V1 mean P.51 mmHg PI end-d yoshi: 121.5 cm/sec TR max yoshi: 218.4 cm/sec TR max P.7 mmHg Left Ventricle The left ventricular size, thickness and function are normal. Right Ventricle The right ventricle is normal in size and function. Atria Normal left and right atrial size and function. Mitral Valve The anterior leaflet of the mitral valve is redundant and has a mild prolapse. Mild eccentric MR. Tricuspid Valve The tricuspid valve is normal in structure and function. There is mild tricuspid regurgitation. Aortic Valve The aortic valve is normal in structure and function. Pulmonic Valve The pulmonic valve is normal in structure and function. Great Vessels The aortic root is normal size. Pericardium/Pleura There is no pericardial effusion. Summary Statements The left ventricular size, thickness and function are normal The right ventricle is normal in size and function. Normal left and right atrial size and function. Mild eccentric MR. The tricuspid valve is normal in structure and function. There is mild tricuspid regurgitation. The aortic valve is normal in structure and function. The pulmonic valve is normal in structure and function. EF 57% PASP 33 mmHg MD Adan Arriaga 05/08/2019, 11:21 AM Ordering Physician: Kaleigh Veronica Referring Physician: KALEIGH VERONICA Performed By: Toshia Rodriguez
[2019-05-08] MEDS ORDERED: POTASSIUM CHLORIDE TABS 20 MEQ TABLET.ER (FP) PO ONE (13:00)
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
[2019-05-08] MEDS: DEXTROSE 5%-0.45% SALINE 1,000 ML IV SCH (19:18)
--- NOTE | 2019-05-08 19:36 | PN ---
Progress Note, Physician History of Present Illness: GI FOLLOW UP NOTE Patient examined and case discussed with Dr Banks Patient states his abdominal pain is improving. Complains of diarrhea, non- bloody dark in color. Denies nausea, vomiting, blood in stool. - Current Medication List Current Medications: Active Medications Amlodipine Besylate (Norvasc -) 2.5 mg PO DAILY [facility] Last Admin: 05/08/19 09:33 Dose: 2.5 mg Chlordiazepoxide HCl (Librium -) 15 mg PO TID [facility] Stop: 05/09/19 06:01 Last Admin: 05/08/19 17:53 Dose: 15 mg Chlordiazepoxide HCl (Librium -) 10 mg PO TID [facility] Stop: 05/10/19 06:01 Chlordiazepoxide HCl (Librium -) 5 mg PO TID [facility] Stop: 05/11/19 06:01 Folic Acid (Folic Acid -) 1 mg PO DAILY [facility] Last Admin: 05/08/19 09:34 Dose: 1 mg Dextrose/Sodium Chloride (D5-1/2ns -) 1,000 mls @ 75 mls/hr IV ASDIR [facility] Last Admin: 05/08/19 19:18 Dose: 75 mls/hr Piperacillin Sod/Tazobactam (Sod 3.375 gm/ Dextrose) 50 mls @ 100 mls/hr IVPB Q8H-IV [facility]; Protocol Last Admin: 05/08/19 17:52 Dose: 100 mls/hr Ondansetron HCl (Zofran Injection) 4 mg IVPUSH Q6H PRN PRN Reason: NAUSEA AND/OR VOMITING Last Admin: 05/07/19 14:35 Dose: 4 mg Thiamine HCl (Vitamin B1 -) 100 mg PO DAILY [facility] Last Admin: 05/08/19 09:35 Dose: 100 mg - Objective Vital Signs: Vital Signs Temperature 98.4 F 05/08/19 12:00 Pulse Rate 63 05/08/19 12:00 Respiratory Rate 18 05/08/19 12:00 Blood Pressure 160/83 05/08/19 12:00 O2 Sat by Pulse Oximetry (%) 98 05/07/19 21:00 Constitutional: Yes: No Distress, Calm Eyes: Yes: Conjunctiva Clear HENT: Yes: Atraumatic Cardiovascular: Yes: Regular Rate and Rhythm Respiratory: Yes: Regular, CTA Bilaterally Gastrointestinal: Yes: Normal Bowel Sounds, Soft, Tenderness (RUQ, epi) Neurological: Yes: Alert, Oriented Psychiatric: Yes: Alert, Oriented Labs: CBC, BMP 05/08/19 06:10 05/08/19 06:00 INR, PTT INR 1.04 (0.83-1.09) 05/06/19 21:57 Problem List - Problems (1) Abdominal pain Assessment/Plan: -Abdominal MRI shows large heterogeneous pancreatic head mass measuring 5.4 x 4.3cm with significant pancreatic and biliary duct dilatation, findings suggestive of pancreatic carcinomauntil proven otherwise -will need to follow up as outpatient at [facility] with Dr Juarez. Code(s): R10.9 - UNSPECIFIED ABDOMINAL PAIN (2) Diarrhea Assessment/Plan: >low fiber, lactose free diet >c diff stool collection >flagyl ivpb Code(s): R19.7 - DIARRHEA, UNSPECIFIED
--- NOTE | 2019-05-08 23:07 | PN ---
Progress Note, Physician - Current Medication List Current Medications: Active Medications Amlodipine Besylate (Norvasc -) 2.5 mg PO DAILY [facility] Last Admin: 05/08/19 09:33 Dose: 2.5 mg Chlordiazepoxide HCl (Librium -) 15 mg PO TID [facility] Stop: 05/09/19 06:01 Last Admin: 05/08/19 22:08 Dose: 15 mg Chlordiazepoxide HCl (Librium -) 10 mg PO TID [facility] Stop: 05/10/19 06:01 Chlordiazepoxide HCl (Librium -) 5 mg PO TID [facility] Stop: 05/11/19 06:01 Folic Acid (Folic Acid -) 1 mg PO DAILY [facility] Last Admin: 05/08/19 09:34 Dose: 1 mg Dextrose/Sodium Chloride (D5-1/2ns -) 1,000 mls @ 75 mls/hr IV ASDIR [facility] Last Admin: 05/08/19 19:18 Dose: 75 mls/hr Piperacillin Sod/Tazobactam (Sod 3.375 gm/ Dextrose) 50 mls @ 100 mls/hr IVPB Q8H-IV [facility]; Protocol Last Admin: 05/08/19 17:52 Dose: 100 mls/hr Metronidazole (Flagyl 250mg Premixed Ivpb -) 250 mg in 50 mls @ 50 mls/hr IVPB Q8H-IV [facility] Ondansetron HCl (Zofran Injection) 4 mg IVPUSH Q6H PRN PRN Reason: NAUSEA AND/OR VOMITING Last Admin: 05/07/19 14:35 Dose: 4 mg Thiamine HCl (Vitamin B1 -) 100 mg PO DAILY [facility] Last Admin: 05/08/19 09:35 Dose: 100 mg - Objective Vital Signs: Vital Signs Temperature 99.2 F 05/08/19 20:19 Pulse Rate 81 05/08/19 20:19 Respiratory Rate 20 05/08/19 21:00 Blood Pressure 134/79 05/08/19 20:19 O2 Sat by Pulse Oximetry (%) 98 05/07/19 21:00 Labs: CBC, BMP 05/08/19 06:10 05/08/19 06:00 INR, PTT INR 1.04 (0.83-1.09) 05/06/19 21:57 Problem List - Problems (1) Abdominal pain Code(s): R10.9 - UNSPECIFIED ABDOMINAL PAIN (2) Elevated LFTs Code(s): R94.5 - ABNORMAL RESULTS OF LIVER FUNCTION STUDIES (3) Alcohol withdrawal Code(s): F10.239 - ALCOHOL DEPENDENCE WITH WITHDRAWAL, UNSPECIFIED Qualifiers: Complication of substance-induced condition: uncomplicated Qualified Code(s ): F10.230 - Alcohol dependence with withdrawal, uncomplicated (4) HTN (hypertension) Code(s): I10 - ESSENTIAL (PRIMARY) HYPERTENSION
[2019-05-08] MEDS ORDERED: MORPHINE SULFATE 2 MG/ML VIAL IVPUSH PRN (23:55)
[2019-05-09] MEDS: PIPERACILLIN/TAZOB 3.375 GM 3.375 GM in DEXTROSE 5%-WATER - 50 ML IVPB SCH ×2 (02:15→10:24)
[2019-05-09] MEDS: chlordiazePOXIDE 5 MG CAPSULE PO SCH (05:27)
--- NOTE | 2019-05-09 09:14 | PN ---
Progress Note, Physician History of Present Illness: patient stable no new issues had dirrhoea - Current Medication List Current Medications: Active Medications Amlodipine Besylate (Norvasc -) 2.5 mg PO DAILY [facility] Last Admin: 05/08/19 09:33 Dose: 2.5 mg Chlordiazepoxide HCl (Librium -) 10 mg PO TID [facility] Stop: 05/10/19 06:01 Chlordiazepoxide HCl (Librium -) 5 mg PO TID [facility] Stop: 05/11/19 06:01 Folic Acid (Folic Acid -) 1 mg PO DAILY [facility] Last Admin: 05/08/19 09:34 Dose: 1 mg Dextrose/Sodium Chloride (D5-1/2ns -) 1,000 mls @ 75 mls/hr IV ASDIR [facility] Last Admin: 05/08/19 19:18 Dose: 75 mls/hr Piperacillin Sod/Tazobactam (Sod 3.375 gm/ Dextrose) 50 mls @ 100 mls/hr IVPB Q8H-IV [facility]; Protocol Last Admin: 05/09/19 02:15 Dose: 100 mls/hr Metronidazole (Flagyl 250mg Premixed Ivpb -) 250 mg in 50 mls @ 50 mls/hr IVPB Q8H-IV [facility] Last Admin: 05/09/19 01:19 Dose: 50 mls/hr Morphine Sulfate (Morphine Sulfate) 2 mg IVPUSH Q6H PRN PRN Reason: PAIN LEVEL 6-10 Last Admin: 05/09/19 00:16 Dose: 2 mg Ondansetron HCl (Zofran Injection) 4 mg IVPUSH Q6H PRN PRN Reason: NAUSEA AND/OR VOMITING Last Admin: 05/07/19 14:35 Dose: 4 mg Thiamine HCl (Vitamin B1 -) 100 mg PO DAILY [facility] Last Admin: 05/08/19 09:35 Dose: 100 mg - Objective Vital Signs: Vital Signs Temperature 98.4 F 05/09/19 05:23 Pulse Rate 63 05/09/19 05:23 Respiratory Rate 20 05/09/19 05:23 Blood Pressure 147/90 05/09/19 05:23 O2 Sat by Pulse Oximetry (%) 98 05/07/19 21:00 Constitutional: Yes: No Distress, Calm, Thin Cardiovascular: Yes: S1, S2 Respiratory: Yes: Regular, CTA Bilaterally Gastrointestinal: Yes: Normal Bowel Sounds, Soft Musculoskeletal: Yes: WNL Extremities: Yes: Other Neurological: Yes: Alert, Oriented Psychiatric: Yes: Alert, Oriented Labs: CBC, BMP 05/08/19 06:10 05/08/19 06:00 INR, PTT INR 1.04 (0.83-1.09) 05/06/19 21:57 Assessment/Plan Problem List - Problems (1) Abdominal pain Code(s): R10.9 - UNSPECIFIED ABDOMINAL PAIN (2) Elevated LFTs Code(s): R94.5 - ABNORMAL RESULTS OF LIVER FUNCTION STUDIES (3) Alcohol withdrawal Code(s): F10.239 - ALCOHOL DEPENDENCE WITH WITHDRAWAL, UNSPECIFIED Qualifiers: Complication of substance-induced condition: uncomplicated Qualified Code(s ): F10.230 - Alcohol dependence with withdrawal, uncomplicated (4) HTN (hypertension) Code(s): I10 - ESSENTIAL (PRIMARY) HYPERTENSION 5 pancreatitis Plan continue current mgmt abx further plan rest as per the team
[2019-05-09] MEDS ORDERED: PT OWN MED DRAWER 7, Y5N ONE ×4 (10:09→17:05)
[2019-05-09] MEDS: DEXTROSE 5%-0.45% SALINE 1,000 ML IV SCH (11:06)
[2019-05-09] MEDS: FOLIC ACID 1 MG TABLET (FP) PO SCH (11:07)
[2019-05-09] MEDS: amLODIPine BESYLATE 2.5 MG TABLET (FP) PO SCH (11:07)
[2019-05-09] MEDS: THIAMINE HCL 100 MG TABLET (FP) PO SCH (11:08)
--- NOTE | 2019-05-09 12:12 | PN ---
Progress Note, Physician - Current Medication List Current Medications: Active Medications Amlodipine Besylate (Norvasc -) 2.5 mg PO DAILY [facility] Last Admin: 05/09/19 11:07 Dose: 2.5 mg Chlordiazepoxide HCl (Librium -) 10 mg PO TID [facility] Stop: 05/10/19 06:01 Chlordiazepoxide HCl (Librium -) 5 mg PO TID [facility] Stop: 05/11/19 06:01 Folic Acid (Folic Acid -) 1 mg PO DAILY [facility] Last Admin: 05/09/19 11:07 Dose: 1 mg Dextrose/Sodium Chloride (D5-1/2ns -) 1,000 mls @ 75 mls/hr IV ASDIR [facility] Last Admin: 05/09/19 11:06 Dose: 75 mls/hr Metronidazole (Flagyl 250mg Premixed Ivpb -) 250 mg in 50 mls @ 50 mls/hr IVPB Q8H-IV [facility] Last Admin: 05/09/19 11:07 Dose: 50 mls/hr Morphine Sulfate (Morphine Sulfate) 2 mg IVPUSH Q6H PRN PRN Reason: PAIN LEVEL 6-10 Last Admin: 05/09/19 00:16 Dose: 2 mg Ondansetron HCl (Zofran Injection) 4 mg IVPUSH Q6H PRN PRN Reason: NAUSEA AND/OR VOMITING Last Admin: 05/07/19 14:35 Dose: 4 mg Thiamine HCl (Vitamin B1 -) 100 mg PO DAILY [facility] Last Admin: 05/09/19 11:08 Dose: 100 mg - Objective Vital Signs: Vital Signs Temperature 98.4 F 05/09/19 05:23 Pulse Rate 63 05/09/19 05:23 Respiratory Rate 20 05/09/19 05:23 Blood Pressure 147/90 05/09/19 05:23 O2 Sat by Pulse Oximetry (%) 98 05/07/19 21:00 Labs: CBC, BMP 05/08/19 06:10 05/08/19 06:00 INR, PTT INR 1.04 (0.83-1.09) 05/06/19 21:57 Problem List - Problems (1) Severe protein-calorie malnutrition Code(s): E43 - UNSPECIFIED SEVERE PROTEIN-CALORIE MALNUTRITION
[2019-05-09] MEDS ORDERED: chlordiazePOXIDE 5 MG CAPSULE PO SCH ×2 (14:00→18:00)
--- NOTE | 2019-05-09 15:57 | DS ---
Physical Exam: SUBJECTIVE: Patient seen and examined OBJECTIVE: Vital Signs Period Temp Pulse Resp BP Sys/Hahn Pulse Ox Last 24 Hr 98.4 F-99.3 F 63-83 20-20 123-147/75-90 PHYSICAL EXAM GENERAL: The patient is awake, alert, and fully oriented, in no acute distress. HEAD: Normal with no signs of trauma. EYES: PERRL, extraocular movements intact, sclera anicteric, conjunctiva clear. ENT: Ears normal, nares patent, oropharynx clear without exudates, moist mucous membranes. NECK: Trachea midline, full range of motion, supple. LUNGS: Breath sounds equal, clear to auscultation bilaterally, no wheezes, no crackles, no accessory muscle use. HEART: Regular rate and rhythm, S1, S2 without murmur, rub or gallop. ABDOMEN: Soft, nontender, nondistended, normoactive bowel sounds, no guarding, no rebound, no hepatosplenomegaly, no masses. EXTREMITIES: 2+ pulses, warm, well-perfused, no edema. NEUROLOGICAL: Cranial nerves II through XII grossly intact. Normal speech, gait not observed. PSYCH: Normal mood, normal affect. SKIN: Warm, dry, normal turgor, no rashes or lesions noted. LABS HOSPITAL COURSE: Date of Admission:05/06/19 Date of Discharge: 05/09/19 Discharge Summary Reason For Visit: ABD PAIN Current Active Problems Abdominal pain (Acute) Alcohol withdrawal (Acute) Alcoholic pancreatitis (Acute) Diarrhea (Acute) Elevated LFTs (Acute) HTN (hypertension) (Acute) Condition: Guarded - Instructions Diet, Activity, Other Instructions: transfer to [facility] - pancreatic mass workup at [facility] protocol awaiting c diff results - currently pending Disposition: TRANSFER ACUTE CARE/OTHER HOSP - Home Medications Comprehensive Discharge Medication List: Ambulatory Orders Mirtazapine [Remeron -] 15 mg PO HS #30 tablet 08/25/17 Folic Acid - 1 mg PO DAILY tablet 05/09/19 Problem List - Problems (1) Severe protein-calorie malnutrition Code(s): E43 - UNSPECIFIED SEVERE PROTEIN-CALORIE MALNUTRITION
[2019-05-09 16:00] VITALS: BP 124/71; PULSE 81; TEMP 98.5
[2019-05-10] MEDS ORDERED: chlordiazePOXIDE 5 MG CAPSULE PO SCH ×2 (14:00→18:00)
== END 2019-05-09 17:44 | disposition short-term general hospital (02) | DRG 282 ==
LOC: JER 20:01 → JERBED 23:11 → J8W 05-07 02:44
PROVIDERS: ADMIT Internal Medicine; ATTEND Nurse Practitioner Family
PROC: HZ2ZZZZ Detoxification Services for Substance Abuse Treatment (ICD-10-PCS; principal; 2019-05-06)
DX: K85.20 Alcohol induced acute pancreatitis without necrosis or infection (principal); E43 Unspecified severe protein-calorie malnutrition; K86.89 Other specified diseases of pancreas; R10.11 Right upper quadrant pain; F10.230 Alcohol dependence with withdrawal, uncomplicated; I10 Essential (primary) hypertension; R94.5 Abnormal results of liver function studies; F17.210 Nicotine dependence, cigarettes, uncomplicated; R11.2 Nausea with vomiting, unspecified; R19.7 Diarrhea, unspecified; Z68.1 Body mass index [BMI] 19.9 or less, adult
CPT/HCPCS: 36415; 71045-TC-FY; 74181-TC; 76705-TC; 80053; 80307; 81003; 82150; 83690; 85025; 85610; 85730; 87324; 87449; 93306-TC; 99283-25; J0131; J7030

== ENCOUNTER 2022-05-03 08:22 | Inpatient (IN) | payer OTHER ==
[2022-05-03 09:36] VITALS: BMI 17.4
[2022-05-03] MEDS ORDERED: NICOTINE 10 MG CARTRIDGE (INHALER) IH PRN (12:15)
[2022-05-03] MEDS ORDERED: BENZOCAINE/MENTHOL (CHLORASEPTIC ) LOZENGE MM PRN (12:15)
[2022-05-03] MEDS ORDERED: METHOCARBAMOL 500 MG TABLET PO PRN (12:15)
[2022-05-03] MEDS ORDERED: chlordiazePOXIDE HCL 25 MG CAPSULE PO PRN (12:15)
[2022-05-03] MEDS ORDERED: DICYCLOMINE HCL 10 MG CAPSULE PO PRN (12:15)
[2022-05-03] MEDS ORDERED: IBUPROFEN 600 MG TABLET (FP) PO PRN (12:15)
[2022-05-03] MEDS ORDERED: LOPERAMIDE HCL 2 MG CAPSULE PO PRN (12:15)
[2022-05-03] MEDS ORDERED: ONDANSETRON *ODT* 4 MG TABLET SL PRN (12:15)
[2022-05-03] MEDS ORDERED: ACETAMINOPHEN 325 MG TABLET (FP) PO PRN ×2 (12:15)
[2022-05-03] MEDS ORDERED: MAG HYDROX/AL HYDROX/SIMETH 30 ML UNIT-DOSE CUP PO PRN (12:15)
[2022-05-03] MEDS ORDERED: IBUPROFEN 400 MG TABLET (FP) PO PRN (12:15)
[2022-05-03] MEDS ORDERED: MAGNESIUM HYDROX 2400MG/30ML ORAL SUSPENSION 30 ML CUP PO PRN (12:15)
[2022-05-03] MEDS ORDERED: BISMUTH SUBSALICYLATE 524 MG/30 ML PO PRN (12:15)
[2022-05-03] MEDS ORDERED: MAGNESIUM CITRATE 300 ML BOTTLE PO PRN (12:15)
[2022-05-03] MEDS: PRENATAL VITAMINS W/ FOLIC ACID TABLET (FP) PO SCH (13:38)
[2022-05-03] MEDS: hydrOXYzine PAMOATE 25 MG CAPSULE (FP) PO SCH ×3 (13:40→23:10)
[2022-05-03] MEDS: chlordiazePOXIDE HCL 25 MG CAPSULE PO SCH ×2 (18:31→23:10)
[2022-05-03] MEDS: MELATONIN 5 MG TABLETS PO SCH (23:10)
[2022-05-03] MEDS: THIAMINE HCL 100 MG TABLET (FP) PO SCH (23:10)
[2022-05-04] MEDS: chlordiazePOXIDE HCL 25 MG CAPSULE PO SCH ×4 (07:20→23:29)
[2022-05-04] MEDS: hydrOXYzine PAMOATE 25 MG CAPSULE (FP) PO SCH ×5 (07:20→23:29)
[2022-05-04] MEDS: PRENATAL VITAMINS W/ FOLIC ACID TABLET (FP) PO SCH (10:28)
[2022-05-04 16:38] LABS: HEMATOCRIT 36.4 % (35.4-49); HEMOGLOBIN 12.6 GM/dL (11.7-16.9); MCH 36.1 pg (25.7-33.7); MCHC 34.7 g/dl (32.0-35.9); MEAN CELL VOLUME 104.2 fl (80-96); MEAN PLT VOLUME 8.4 fl (7.5-11.1); PLATELET COUNT 103 10^3/uL (134-434); RDW 12.9 % (11.9-15.9)
[2022-05-04 16:41] LABS: CALCIUM 9.3 mg/dL (8.5-10.1)
[2022-05-04 16:46] LABS: BILIRUBIN,TOTAL 2.7 mg/dL (0.2-1); TOT PROT 8.7 g/dl (6.4-8.2)
[2022-05-04] MEDS ORDERED: METOPROLOL TARTRATE 25 MG TABLET (FP) PO ONE (22:59)
[2022-05-04] MEDS: MELATONIN 5 MG TABLETS PO SCH (23:28)
[2022-05-04] MEDS: THIAMINE HCL 100 MG TABLET (FP) PO SCH (23:28)
[2022-05-05] MEDS: chlordiazePOXIDE HCL 25 MG CAPSULE PO SCH ×4 (07:11→22:49)
[2022-05-05] MEDS: hydrOXYzine PAMOATE 25 MG CAPSULE (FP) PO SCH ×5 (07:12→22:50)
[2022-05-05] MEDS: PRENATAL VITAMINS W/ FOLIC ACID TABLET (FP) PO SCH (10:42)
[2022-05-05] MEDS: MELATONIN 5 MG TABLETS PO SCH (22:49)
[2022-05-05] MEDS: THIAMINE HCL 100 MG TABLET (FP) PO SCH (22:49)
[2022-05-06] MEDS ORDERED: chlordiazePOXIDE HCL 10 MG CAPSULE PO PRN
[2022-05-06] MEDS: chlordiazePOXIDE HCL 10 MG CAPSULE PO SCH ×4 (06:41→23:05)
[2022-05-06] MEDS: hydrOXYzine PAMOATE 25 MG CAPSULE (FP) PO SCH ×5 (06:41→23:05)
[2022-05-06] MEDS: PRENATAL VITAMINS W/ FOLIC ACID TABLET (FP) PO SCH (10:59)
[2022-05-06 12:28] LABS: HEMATOCRIT 36.3 % (35.4-49); HEMOGLOBIN 12.7 GM/dL (11.7-16.9); MCH 36.3 pg (25.7-33.7); MCHC 34.9 g/dl (32.0-35.9); MEAN CELL VOLUME 104.2 fl (80-96); MEAN PLT VOLUME 8.7 fl (7.5-11.1); PLATELET COUNT 101 10^3/uL (134-434); RBC 3.48 M/mm3 (4.00-5.60); RDW 12.9 % (11.9-15.9); WHITE BLOOD COUNT 3.5 K/mm3 (4.0-10.0)
[2022-05-06 12:33] LABS: INR 1.18 (0.83-1.09); PROTHROMBIN TIME (PATIENT) 13.6 SEC (9.7-13.0)
[2022-05-06 13:22] LABS: BLOOD UREA NITROGEN 9.3 mg/dL (7-18)
[2022-05-06 13:23] LABS: CALCIUM 9.9 mg/dL (8.5-10.1)
[2022-05-06 13:26] LABS: CREATININE 0.8 mg/dL (0.55-1.3)
[2022-05-06 13:28] LABS: BILIRUBIN,TOTAL 2.8 mg/dL (0.2-1); TOT PROT 8.6 g/dl (6.4-8.2)
[2022-05-06] MEDS ORDERED: POTASSIUM CHLORIDE ORAL LIQUID 20 MEQ/15 ML PO ONE (14:07)
[2022-05-06] MEDS: POTASSIUM CHLORIDE ORAL LIQUID 20 MEQ/15 ML PO SCH (23:05)
[2022-05-06] MEDS: THIAMINE HCL 100 MG TABLET (FP) PO SCH (23:05)
[2022-05-06] MEDS: MELATONIN 5 MG TABLETS PO SCH (23:06)
[2022-05-07] MEDS: chlordiazePOXIDE HCL 10 MG CAPSULE PO SCH ×2 (06:57→18:15)
[2022-05-07] MEDS: hydrOXYzine PAMOATE 25 MG CAPSULE (FP) PO SCH ×5 (06:57→23:04)
[2022-05-07] MEDS: PRENATAL VITAMINS W/ FOLIC ACID TABLET (FP) PO SCH (11:03)
[2022-05-07] MEDS: POTASSIUM CHLORIDE ORAL LIQUID 20 MEQ/15 ML PO SCH ×2 (11:03→23:04)
[2022-05-07 11:32] LABS: ALBUMIN 4.2 g/dl (3.4-5.0); BLOOD UREA NITROGEN 11.8 mg/dL (7-18)
[2022-05-07 11:35] LABS: CREATININE 0.8 mg/dL (0.55-1.3)
[2022-05-07 11:37] LABS: BILIRUBIN,TOTAL 2.9 mg/dL (0.2-1); TOT PROT 8.9 g/dl (6.4-8.2)
[2022-05-07] MEDS: MELATONIN 5 MG TABLETS PO SCH (23:10)
[2022-05-07] MEDS: THIAMINE HCL 100 MG TABLET (FP) PO SCH (23:10)
[2022-05-08] MEDS ORDERED: chlordiazePOXIDE HCL 10 MG CAPSULE PO ONE (05:00)
[2022-05-08] MEDS: hydrOXYzine PAMOATE 25 MG CAPSULE (FP) PO SCH ×5 (06:42→22:21)
[2022-05-08] MEDS: PRENATAL VITAMINS W/ FOLIC ACID TABLET (FP) PO SCH (10:29)
[2022-05-08] MEDS: MELATONIN 5 MG TABLETS PO SCH (22:21)
[2022-05-08] MEDS: THIAMINE HCL 100 MG TABLET (FP) PO SCH (22:21)
[2022-05-09 06:36] VITALS: RESP 18
[2022-05-09] MEDS: hydrOXYzine PAMOATE 25 MG CAPSULE (FP) PO SCH (07:12)
[2022-05-09 09:14] VITALS: BP 143/97; PULSE 101; TEMP 98.4
== END 2022-05-09 09:47 | disposition home or self-care (01) | DRG 775 ==
LOC: SUATTDRO 08:22 → YASAS 08:22 → Y3N 11:47
PROVIDERS: ADMIT Allergy & Immunology; ATTEND Surgery
PROC: HZ2ZZZZ Detoxification Services for Substance Abuse Treatment (ICD-10-PCS; principal; 2022-05-03)
DX: F10.230 Alcohol dependence with withdrawal, uncomplicated (principal); F12.20 Cannabis dependence, uncomplicated; E87.6 Hypokalemia; I10 Essential (primary) hypertension; R26.2 Difficulty in walking, not elsewhere classified; R53.1 Weakness; R74.8 Abnormal levels of other serum enzymes; R63.4 Abnormal weight loss; Z68.1 Body mass index [BMI] 19.9 or less, adult; Z87.19 Personal history of other diseases of the digestive system; Z28.310 Unvaccinated for COVID-19; Z28.21 Immunization not carried out because of patient refusal
CPT/HCPCS: 36415; 80053; 85027; 85610; 86780; C9803-CS; U0003; U0005

== ENCOUNTER 2022-05-11 20:56 | Inpatient (IN) | payer OTHER ==
[2022-05-11] MEDS ORDERED: LORazepam 2 MG/ML SDV VIAL IVPUSH ONE (21:35)
[2022-05-11] MEDS ORDERED: SODIUM CHLORIDE 1,905 ML IV ONE (21:36)
[2022-05-11 22:03] LABS: VENOUS BASE EXCESS 0.5 mmol/L (-2-2); VENOUS O2 SATURATION 26.2 % (70-80); VENOUS PCO2 45.3 mmHg (38-52); VENOUS PH 7.377 (7.310-7.410)
[2022-05-11 22:17] LABS: BASO % 1.2 % (0-2.0); LYMPH % 25.9 % (8-40); MCH 35.8 pg (25.7-33.7); MCHC 34.4 g/dl (32.0-35.9); MEAN CELL VOLUME 104.2 fl (80-96); MEAN PLT VOLUME 7.6 fl (7.5-11.1); MONO % 21.8 % (3.8-10.2); NEUT % 47.1 % (42.8-82.8); PLATELET COUNT 181 10^3/uL (134-434); RBC 3.36 M/mm3 (4.00-5.60); RDW 12.7 % (11.9-15.9); WHITE BLOOD COUNT 3.7 K/mm3 (4.0-10.0)
[2022-05-11 22:27] LABS: INR 1.29 (0.83-1.09); PROTHROMBIN TIME (PATIENT) 14.9 SEC (9.7-13.0)
[2022-05-11 22:30] LABS: ACTIVATED PTT 34.5 SECONDS (25.2-36.5)
[2022-05-11 22:38] LABS: CHLORIDE 103 mmol/L (98-107); SODIUM 138 mmol/L (136-145)
[2022-05-11 22:40] LABS: CALCIUM 10.5 mg/dL (8.5-10.1)
[2022-05-11 22:41] LABS: ANION GAP 9 MMOL/L (8-16); BLOOD UREA NITROGEN 12.5 mg/dL (7-18); CO2 26 mmol/L (21-32); GLUCOSE,RANDOM 153 mg/dL (74-106)
[2022-05-11 22:44] LABS: CREATININE 1.1 mg/dL (0.55-1.3); SGOT/AST 57 U/L (15-37); SGPT/ALT 51 U/L (13-61)
[2022-05-11 22:46] LABS: BILIRUBIN,TOTAL 2.4 mg/dL (0.2-1); TOT PROT 8.9 g/dl (6.4-8.2)
[2022-05-11 22:50] LABS: ALK PHOS 53 U/L (45-117); LACTIC ACID 2.8 mmol/L (0.4-2.0)
[2022-05-12] MEDS ORDERED: THIAMINE HCL 200 MG/2 ML VIAL IVPB ONE (00:34)
[2022-05-12] MEDS ORDERED: THIAMINE HCL 200 MG/2 ML VIAL ONE ×4 (00:43→22:32)
[2022-05-12 02:09] LABS: MAGNESIUM 1.1 mg/dL (1.8-2.4)
[2022-05-12 02:13] LABS: PHOSPHOROUS 2.9 mg/dL (2.5-4.9)
[2022-05-12] MEDS ORDERED: MAGNESIUM SULF 50% (8.12 MEQ/2 ML-1 GM VIAL) IVPB ONE (02:32)
[2022-05-12] MEDS ORDERED: MAGNESIUM SULFATE IN WATER 2 GM/50 ML IVPB IVPB ONE (03:06)
[2022-05-12 03:36] LABS: EPI CELLS 5 /uL (0-25.1); HYALINE CASTS 2 /uL (0-3.1); URINE APPEARANCE CLEAR; URINE BACTERIA 3340 /uL (0-1359); URINE BILIRUBIN 1+ (NEGATIVE); URINE COLOR DK YELLOW; URINE GLUCOSE (UA) NEGATIVE (NEGATIVE); URINE KETONE TRACE (NEGATIVE); URINE LEUK ESTERASE 2+ (NEGATIVE); URINE NITRITE NEGATIVE (NEGATIVE); URINE PROTEIN TRACE (NEGATIVE); URINE RBC 17 /uL (0-23.9); URINE UROBILINOGEN 4.0 E.U/dl mg/dL (0.2-1.0); URINE WBC 217 /uL (0-25.8)
[2022-05-12 03:49] LABS: BLOOD UREA NITROGEN 10.3 mg/dL (7-18)
[2022-05-12 03:52] LABS: CREATININE 0.7 mg/dL (0.55-1.3)
[2022-05-12 04:01] LABS: CALCIUM 8.6 mg/dL (8.5-10.1)
[2022-05-12 07:10] LABS: ALBUMIN 3.4 g/dl (3.4-5.0); BLOOD UREA NITROGEN 8.3 mg/dL (7-18); CALCIUM 8.7 mg/dL (8.5-10.1); MAGNESIUM 1.9 mg/dL (1.8-2.4)
[2022-05-12 07:13] LABS: CREATININE 0.7 mg/dL (0.55-1.3)
[2022-05-12 07:14] LABS: BILIRUBIN,TOTAL 1.8 mg/dL (0.2-1); TOT PROT 7.6 g/dl (6.4-8.2)
[2022-05-12 07:24] LABS: PHOSPHOROUS 3.4 mg/dL (2.5-4.9)
[2022-05-12] MEDS ORDERED: LORazepam 1 MG TABLET ONE ×4 (08:43→22:32)
[2022-05-12] MEDS: LORazepam 1 MG TABLET PO PRN (09:26)
[2022-05-12] MEDS ORDERED: ENOXAPARIN NA (PORCINE) 40 MG/0.4 ML DISP.SYRIN SQ ONE ×2 (09:34→12:27)
[2022-05-12] MEDS ORDERED: MULTIVITAMINS (DAILY MVI) TABLET (FP) ONE ×2 (09:34→12:27)
[2022-05-12] MEDS ORDERED: FOLIC ACID 1 MG TABLET (FP) ONE ×2 (09:34→12:26)
[2022-05-12] MEDS ORDERED: THIAMINE HCL 200 MG/2 ML VIAL IM SCH ×3 (10:00→22:00)
[2022-05-12] MEDS: ENOXAPARIN NA (PORCINE) 40 MG/0.4 ML DISP.SYRIN SQ SCH (12:42)
[2022-05-12] MEDS: MULTIVITAMINS (DAILY MVI) TABLET (FP) PO SCH (12:42)
[2022-05-12] MEDS: FOLIC ACID 1 MG TABLET (FP) PO SCH (12:42)
[2022-05-12] MEDS: LORazepam 1 MG TABLET PO SCH ×3 (12:42→22:47)
[2022-05-12 13:04] LABS: HEMATOCRIT 34.8 % (35.4-49); MCH 35.6 pg (25.7-33.7); MCHC 34.4 g/dl (32.0-35.9); MEAN CELL VOLUME 103.6 fl (80-96); PLATELET COUNT 188 10^3/uL (134-434); RBC 3.36 M/mm3 (4.00-5.60); RDW 12.5 % (11.9-15.9); WHITE BLOOD COUNT 4.4 K/mm3 (4.0-10.0)
[2022-05-12 14:03] LABS: ANISOCYTOSIS 1+; MACROCYTOSIS 1+
[2022-05-12] MEDS ORDERED: SODIUM CHLORIDE 1,000 ML IV SCH (14:45)
[2022-05-12] MEDS ORDERED: CEFTRIAXONE 2 GM in DEXTROSE 5%-WATER 100 ML IVPB ONE (15:02)
[2022-05-12] MEDS ORDERED: CEFTRIAXONE 2 GM/100 ML BAG IVPB ONE (16:08)
[2022-05-12] MEDS: THIAMINE HCL 200 MG/2 ML VIAL IVPB SCH (22:15)
[2022-05-13] MEDS: LORazepam 1 MG TABLET PO SCH ×4 (05:00→22:25)
[2022-05-13] MEDS: ENOXAPARIN NA (PORCINE) 40 MG/0.4 ML DISP.SYRIN SQ SCH (09:09)
[2022-05-13] MEDS: MULTIVITAMINS (DAILY MVI) TABLET (FP) PO SCH (09:09)
[2022-05-13] MEDS: THIAMINE HCL 200 MG/2 ML VIAL IVPB SCH ×2 (09:10→22:25)
[2022-05-13] MEDS: FOLIC ACID 1 MG TABLET (FP) PO SCH (09:10)
[2022-05-13] MEDS: CEFTRIAXONE 1 GM in DEXTROSE 5%-WATER - 50 ML IVPB SCH (09:10)
[2022-05-13 12:20] LABS: HEMATOCRIT 33.6 % (35.4-49); HEMOGLOBIN 11.8 GM/dL (11.7-16.9); MCH 36.3 pg (25.7-33.7); MCHC 35.1 g/dl (32.0-35.9); MEAN CELL VOLUME 103.4 fl (80-96); MEAN PLT VOLUME 7.7 fl (7.5-11.1); PLATELET COUNT 208 10^3/uL (134-434); RBC 3.25 M/mm3 (4.00-5.60); RDW 12.4 % (11.9-15.9); WHITE BLOOD COUNT 4.1 K/mm3 (4.0-10.0)
[2022-05-13 12:44] LABS: ANISOCYTOSIS 1+; MACROCYTOSIS 1+
[2022-05-13 12:51] LABS: ALBUMIN 3.2 g/dl (3.4-5.0); BLOOD UREA NITROGEN 6.8 mg/dL (7-18)
[2022-05-13 12:54] LABS: CREATININE 0.7 mg/dL (0.55-1.3)
[2022-05-13 12:55] LABS: TOT PROT 7.5 g/dl (6.4-8.2)
[2022-05-13 12:57] LABS: BILIRUBIN,TOTAL 1.6 mg/dL (0.2-1)
[2022-05-14] MEDS ORDERED: LORazepam 0.5 MG TABLET ONE ×2 (02:43→06:27)
[2022-05-14] MEDS: LORazepam 1 MG TABLET PO PRN (02:45)
[2022-05-14] MEDS: LORazepam 1 MG TABLET PO SCH ×6 (06:31→23:54)
[2022-05-14] MEDS ORDERED: POTASSIUM CHLORIDE TABS 20 MEQ TABLET.ER (FP) PO ONE ×2 (07:39→11:15)
[2022-05-14] MEDS: MULTIVITAMINS (DAILY MVI) TABLET (FP) PO SCH (10:05)
[2022-05-14] MEDS: FOLIC ACID 1 MG TABLET (FP) PO SCH (10:05)
[2022-05-14] MEDS: CEFTRIAXONE 1 GM in DEXTROSE 5%-WATER - 50 ML IVPB SCH (10:06)
[2022-05-14] MEDS: ENOXAPARIN NA (PORCINE) 40 MG/0.4 ML DISP.SYRIN SQ SCH (10:06)
[2022-05-14] MEDS: THIAMINE HCL 200 MG/2 ML VIAL IVPB SCH ×2 (11:09→22:06)
[2022-05-14 12:50] VITALS: BMI 17.4
[2022-05-15] MEDS ORDERED: LORazepam 0.5 MG TABLET PO PRN
[2022-05-15] MEDS: LORazepam 0.5 MG TABLET PO SCH ×3 (06:16→17:14)
[2022-05-15] MEDS: ENOXAPARIN NA (PORCINE) 40 MG/0.4 ML DISP.SYRIN SQ SCH (09:31)
[2022-05-15] MEDS: FOLIC ACID 1 MG TABLET (FP) PO SCH (09:31)
[2022-05-15] MEDS: MULTIVITAMINS (DAILY MVI) TABLET (FP) PO SCH (09:31)
[2022-05-15] MEDS: CEFTRIAXONE 1 GM in DEXTROSE 5%-WATER - 50 ML IVPB SCH (09:31)
[2022-05-15] MEDS: THIAMINE HCL 200 MG/2 ML VIAL IVPB SCH ×2 (10:14→21:09)
[2022-05-15 11:40] LABS: BASO % 1.3 % (0-2.0); EOS % 3.6 % (0-4.5); HEMATOCRIT 38.2 % (35.4-49); HEMOGLOBIN 12.8 GM/dL (11.7-16.9); LYMPH % 22.4 % (8-40); MCH 34.9 pg (25.7-33.7); MCHC 33.5 g/dl (32.0-35.9); MEAN PLT VOLUME 8.2 fl (7.5-11.1); MONO % 15.4 % (3.8-10.2); NEUT % 57.3 % (42.8-82.8); PLATELET COUNT 235 10^3/uL (134-434); RBC 3.67 M/mm3 (4.00-5.60); RDW 12.3 % (11.9-15.9)
[2022-05-15 12:06] LABS: CALCIUM 9.4 mg/dL (8.5-10.1)
[2022-05-15 12:07] LABS: BLOOD UREA NITROGEN 4.3 mg/dL (7-18)
[2022-05-15 12:10] LABS: CREATININE 0.6 mg/dL (0.55-1.3)
[2022-05-16] MEDS: LORazepam 0.5 MG TABLET PO SCH
[2022-05-16] MEDS ORDERED: LORazepam 0.5 MG TABLET PO ONE (05:00)
[2022-05-16 08:32] LABS: HEMOGLOBIN 11.4 GM/dL (11.7-16.9); MCH 34.6 pg (25.7-33.7); MCHC 33.6 g/dl (32.0-35.9); MEAN CELL VOLUME 102.9 fl (80-96); PLATELET COUNT 181 10^3/uL (134-434); RDW 12.4 % (11.9-15.9)
[2022-05-16 08:33] LABS: WHITE BLOOD COUNT 8.8 K/mm3 (4.0-10.0)
[2022-05-16 08:48] LABS: ALBUMIN 3.2 g/dl (3.4-5.0); BLOOD UREA NITROGEN 7.3 mg/dL (7-18); CALCIUM 9.6 mg/dL (8.5-10.1)
[2022-05-16 08:51] LABS: CREATININE 0.6 mg/dL (0.55-1.3)
[2022-05-16 08:53] LABS: TOT PROT 7.4 g/dl (6.4-8.2)
[2022-05-16] MEDS ORDERED: SODIUM CHLORIDE 0.9% 500 ML INFUS.BAG IV ONE (10:02)
[2022-05-16] MEDS ORDERED: LORazepam 0.5 MG TABLET PO PRN (10:11)
[2022-05-16] MEDS: CEFTRIAXONE 1 GM in DEXTROSE 5%-WATER - 50 ML IVPB SCH (11:36)
[2022-05-16] MEDS: ENOXAPARIN NA (PORCINE) 40 MG/0.4 ML DISP.SYRIN SQ SCH (11:37)
[2022-05-16] MEDS: MULTIVITAMINS (DAILY MVI) TABLET (FP) PO SCH (11:38)
[2022-05-16] MEDS: FOLIC ACID 1 MG TABLET (FP) PO SCH (11:38)
[2022-05-16] MEDS: THIAMINE HCL 200 MG/2 ML VIAL IVPB SCH ×2 (11:38→22:35)
[2022-05-17 09:17] LABS: BASO % 4.3 % (0-2.0); EOS % 4.4 % (0-4.5); HEMATOCRIT 32.6 % (35.4-49); HEMOGLOBIN 11.6 GM/dL (11.7-16.9); LYMPH % 23.2 % (8-40); MCH 36.7 pg (25.7-33.7); MCHC 35.6 g/dl (32.0-35.9); MEAN PLT VOLUME 7.5 fl (7.5-11.1); MONO % 13.1 % (3.8-10.2); PLATELET COUNT 284 10^3/uL (134-434); RBC 3.16 M/mm3 (4.00-5.60); RDW 12.6 % (11.9-15.9); WHITE BLOOD COUNT 4.9 K/mm3 (4.0-10.0)
[2022-05-17 09:29] LABS: CALCIUM 9.5 mg/dL (8.5-10.1)
[2022-05-17 09:31] LABS: BLOOD UREA NITROGEN 9.2 mg/dL (7-18)
[2022-05-17 09:34] LABS: CREATININE 0.7 mg/dL (0.55-1.3)
[2022-05-17] MEDS: CEFTRIAXONE 1 GM in DEXTROSE 5%-WATER - 50 ML IVPB SCH (10:08)
[2022-05-17] MEDS: MULTIVITAMINS (DAILY MVI) TABLET (FP) PO SCH (10:08)
[2022-05-17] MEDS: FOLIC ACID 1 MG TABLET (FP) PO SCH (10:09)
[2022-05-17] MEDS: ENOXAPARIN NA (PORCINE) 40 MG/0.4 ML DISP.SYRIN SQ SCH (10:09)
[2022-05-17] MEDS: THIAMINE HCL 200 MG/2 ML VIAL IVPB SCH ×2 (10:36→22:13)
[2022-05-17] MEDS ORDERED: SODIUM CHLORIDE 1,000 ML IV SCH (14:00)
[2022-05-18] MEDS: ENOXAPARIN NA (PORCINE) 40 MG/0.4 ML DISP.SYRIN SQ SCH (09:17)
[2022-05-18] MEDS: MULTIVITAMINS (DAILY MVI) TABLET (FP) PO SCH (09:17)
[2022-05-18] MEDS: FOLIC ACID 1 MG TABLET (FP) PO SCH (09:18)
[2022-05-18] MEDS: THIAMINE HCL 200 MG/2 ML VIAL IVPB SCH (09:18)
[2022-05-18] MEDS: CEFTRIAXONE 1 GM in DEXTROSE 5%-WATER - 50 ML IVPB SCH (09:18)
[2022-05-18] MEDS: SODIUM CHLORIDE 1,000 ML IV SCH (14:45)
[2022-05-18 17:13] LABS: BASO % 1.3 % (0-2.0); EOS % 4.9 % (0-4.5); HEMATOCRIT 34.9 % (35.4-49); HEMOGLOBIN 11.6 GM/dL (11.7-16.9); MCH 34.5 pg (25.7-33.7); MCHC 33.2 g/dl (32.0-35.9); MEAN CELL VOLUME 103.9 fl (80-96); MEAN PLT VOLUME 7.8 fl (7.5-11.1); MONO % 12.3 % (3.8-10.2); NEUT % 60.5 % (42.8-82.8); PLATELET COUNT 332 10^3/uL (134-434); RBC 3.36 M/mm3 (4.00-5.60); RDW 12.5 % (11.9-15.9); WHITE BLOOD COUNT 5.2 K/mm3 (4.0-10.0)
[2022-05-18 17:48] LABS: CALCIUM 9.1 mg/dL (8.5-10.1)
[2022-05-18 17:50] LABS: BLOOD UREA NITROGEN 7.9 mg/dL (7-18)
[2022-05-18 17:53] LABS: CREATININE 0.6 mg/dL (0.55-1.3)
[2022-05-19] MEDS: CEFTRIAXONE 1 GM in DEXTROSE 5%-WATER - 50 ML IVPB SCH (09:35)
[2022-05-19] MEDS: THIAMINE HCL 100 MG TABLET (FP) PO SCH (09:36)
[2022-05-19] MEDS: FOLIC ACID 1 MG TABLET (FP) PO SCH (09:36)
[2022-05-19] MEDS: SODIUM CHLORIDE 1,000 ML IV SCH (09:36)
[2022-05-19] MEDS: MULTIVITAMINS (DAILY MVI) TABLET (FP) PO SCH (09:36)
[2022-05-20] MEDS: MULTIVITAMINS (DAILY MVI) TABLET (FP) PO SCH (09:13)
[2022-05-20] MEDS: THIAMINE HCL 100 MG TABLET (FP) PO SCH (09:13)
[2022-05-20] MEDS: FOLIC ACID 1 MG TABLET (FP) PO SCH (09:14)
[2022-05-20] MEDS: SODIUM CHLORIDE 1,000 ML IV SCH (09:14)
[2022-05-21] MEDS: SODIUM CHLORIDE 1,000 ML IV SCH (09:47)
[2022-05-21] MEDS: MULTIVITAMINS (DAILY MVI) TABLET (FP) PO SCH (09:47)
[2022-05-21] MEDS: FOLIC ACID 1 MG TABLET (FP) PO SCH (09:47)
[2022-05-21] MEDS: THIAMINE HCL 100 MG TABLET (FP) PO SCH (09:47)
[2022-05-21 09:58] LABS: CALCIUM 9.3 mg/dL (8.5-10.1)
[2022-05-21 09:59] LABS: BLOOD UREA NITROGEN 6.8 mg/dL (7-18)
[2022-05-21 10:02] LABS: BASO % 1.2 % (0-2.0); CREATININE 0.6 mg/dL (0.55-1.3); EOS % 4.6 % (0-4.5); LYMPH % 20.4 % (8-40); MCH 35.9 pg (25.7-33.7); MCHC 33.3 g/dl (32.0-35.9); MEAN CELL VOLUME 107.6 fl (80-96); MEAN PLT VOLUME 6.9 fl (7.5-11.1); MONO % 16.7 % (3.8-10.2); NEUT % 57.1 % (42.8-82.8); PLATELET COUNT 271 10^3/uL (134-434); RBC 3.35 M/mm3 (4.00-5.60); RDW 13.2 % (11.9-15.9); WHITE BLOOD COUNT 5.3 K/mm3 (4.0-10.0)
[2022-05-21 11:37] LABS: ANISOCYTOSIS 1+; MACROCYTOSIS 1+; TEAR DROP CELLS 1+
[2022-05-22] MEDS: FOLIC ACID 1 MG TABLET (FP) PO SCH (09:35)
[2022-05-22] MEDS: MULTIVITAMINS (DAILY MVI) TABLET (FP) PO SCH (09:35)
[2022-05-22] MEDS: THIAMINE HCL 100 MG TABLET (FP) PO SCH (09:35)
[2022-05-23] MEDS: FOLIC ACID 1 MG TABLET (FP) PO SCH (09:41)
[2022-05-23] MEDS: THIAMINE HCL 100 MG TABLET (FP) PO SCH (09:41)
[2022-05-23] MEDS: MULTIVITAMINS (DAILY MVI) TABLET (FP) PO SCH (09:41)
[2022-05-23 14:28] VITALS: BP 124/60; PULSE 88; RESP 18; TEMP 98.1
== END 2022-05-23 17:29 | disposition home health service (06) | DRG 775 ==
LOC: JER 20:56 → JERBED 05-12 00:31 → J6S 05-13 00:40 → J8W 05-21 12:28
PROVIDERS: ADMIT Hospitalist; ATTEND Internal Medicine
PROC: HZ2ZZZZ Detoxification Services for Substance Abuse Treatment (ICD-10-PCS; principal; 2022-05-11)
DX: F10.230 Alcohol dependence with withdrawal, uncomplicated (principal); E87.2 Acidosis; I10 Essential (primary) hypertension; R44.3 Hallucinations, unspecified; E43 Unspecified severe protein-calorie malnutrition; R68.0 Hypothermia, not associated with low environmental temperature; R64 Cachexia; G92.8 Other toxic encephalopathy; Z68.1 Body mass index [BMI] 19.9 or less, adult; K86.9 Disease of pancreas, unspecified; I95.9 Hypotension, unspecified; K76.0 Fatty (change of) liver, not elsewhere classified; K72.90 Hepatic failure, unspecified without coma; D75.89 Other specified diseases of blood and blood-forming organs; R25.1 Tremor, unspecified; K82.4 Cholesterolosis of gallbladder; K82.8 Other specified diseases of gallbladder; N39.0 Urinary tract infection, site not specified; E53.8 Deficiency of other specified B group vitamins; K76.89 Other specified diseases of liver
CPT/HCPCS: 0241U-QW; 36415; 70450-TC; 71045-TC-FY; 72125-TC; 76705-TC; 80048; 80053; 80307; 81003; 82140; 82746; 82803; 83605; 83735; 84100; 84439; 84443; 84484; 85025; 85027; 85610; 85730; 87040; 87086; 93005; 93010; 93970-TC; 97116-GP; 97162-GP; 99285-25

== ENCOUNTER 2022-12-20 16:46 | Emergency (ER) | payer OTHER ==
[2022-12-20 17:07] VITALS: RESP 18; BMI 17.4
[2022-12-20] MEDS ORDERED: chlordiazePOXIDE HCL 25 MG CAPSULE PO ONE (17:57)
[2022-12-20] MEDS ORDERED: chlordiazePOXIDE HCL 25 MG CAPSULE ONE (18:52)
[2022-12-20 19:29] LABS: BASO % 0.9 % (0-2.0); HEMATOCRIT 39.5 % (35.4-49); HEMOGLOBIN 13.5 GM/dL (11.7-16.9); LYMPH % 9.6 % (8-40); MCH 33.9 pg (25.7-33.7); MCHC 34.1 g/dl (32.0-35.9); MEAN CELL VOLUME 99.5 fl (80-96); MONO % 5.6 % (3.8-10.2); NEUT % 83.9 % (42.8-82.8); RBC 3.97 M/mm3 (4.00-5.60); RDW 13.6 % (11.9-15.9)
[2022-12-20 19:58] LABS: CALCIUM 9.9 mg/dL (8.5-10.1)
[2022-12-20 19:59] LABS: ALBUMIN 4.4 g/dl (3.4-5.0); BLOOD UREA NITROGEN 7.9 mg/dL (7-18); MAGNESIUM 1.8 mg/dL (1.8-2.4)
[2022-12-20 20:02] LABS: CREATININE 0.8 mg/dL (0.55-1.3)
[2022-12-20 20:04] LABS: BILIRUBIN,TOTAL 3.1 mg/dL (0.2-1); TOT PROT 9.4 g/dl (6.4-8.2)
[2022-12-20 20:23] LABS: MEAN PLT VOLUME 7.6 fl (7.5-11.1); PLATELET COUNT 220 10^3/uL (134-434); PLATELET ESTIMATE ADEQUATE
[2022-12-20] MEDS ORDERED: FOLIC ACID INJECTION - 1 MG, THIAMINE HCL 100 MG, MULTIVIT INJECTION ADULT 10 ML in SOD... IVPB ONE (21:02)
[2022-12-20] MEDS ORDERED: LIDOCAINE 5% TOPICAL PATCH TP ONE (22:05)
[2022-12-20] MEDS ORDERED: morphine CARPU-JECT 4 MG/1 ML DISP.SYRIN IVPUSH ONE (22:05)
[2022-12-20] MEDS ORDERED: LIDOCAINE 5% TOPICAL PATCH ONE (22:46)
[2022-12-20 22:50] LABS: BILIRUBIN,DIRECT 0.5 mg/dL (0.0-0.2)
[2022-12-21] MEDS ORDERED: chlordiazePOXIDE HCL 25 MG CAPSULE PO ONE (00:27)
[2022-12-21] MEDS ORDERED: chlordiazePOXIDE HCL 25 MG CAPSULE ONE (00:37)
[2022-12-21 01:36] VITALS: BP 140/85
[2022-12-21 01:59] VITALS: PULSE 90; TEMP 99.5
== END 2022-12-21 02:02 | disposition short-term general hospital (02) ==
LOC: JER 16:46
DX: E87.1 Hypo-osmolality and hyponatremia (principal); S22.42XA Multiple fractures of ribs, left side, initial encounter for closed fracture; F10.920 Alcohol use, unspecified with intoxication, uncomplicated; W18.30XA Fall on same level, unspecified, initial encounter; Z20.822 Contact with and (suspected) exposure to COVID-19
CPT/HCPCS: 0241U-QW; 36415; 70450-TC; 71101-TC-LT-FY; 71250-TC; 72125-TC; 80053; 80307; 82248; 82962; 83735; 85025; 93005; 93010; 99285-25

== ENCOUNTER 2023-01-12 04:44 | Emergency (ER) | payer OTHER ==
[2023-01-12 04:52] VITALS: TEMP 97.7; BMI 16.9
[2023-01-12 05:56] LABS: EOS % 1.8 % (0-4.5); HEMOGLOBIN 12.7 GM/dL (11.7-16.9); LYMPH % 16.4 % (8-40); MCH 34.3 pg (25.7-33.7); MCHC 35.2 g/dl (32.0-35.9); MEAN CELL VOLUME 97.6 fl (80-96); MEAN PLT VOLUME 7.2 fl (7.5-11.1); MONO % 7.9 % (3.8-10.2); NEUT % 72.9 % (42.8-82.8); PLATELET COUNT 326 10^3/uL (134-434); RBC 3.69 M/mm3 (4.00-5.60); WHITE BLOOD COUNT 6.2 K/mm3 (4.0-10.0)
[2023-01-12 06:14] LABS: VENOUS BASE EXCESS 1.6 mmol/L (-2-2); VENOUS O2 SATURATION 22.8 % (70-80); VENOUS PCO2 59.3 mmHg (38-52); VENOUS PH 7.311 (7.310-7.410)
[2023-01-12 06:41] LABS: INR 1.16 (0.83-1.09); PROTHROMBIN TIME (PATIENT) 13.4 SEC (9.7-13.0)
[2023-01-12 06:44] LABS: ACTIVATED PTT 39.3 SECONDS (25.2-36.5)
[2023-01-12 06:45] LABS: ALBUMIN 4.3 g/dl (3.4-5.0); CALCIUM 9.9 mg/dL (8.5-10.1)
[2023-01-12 06:46] LABS: BLOOD UREA NITROGEN 9.4 mg/dL (7-18); MAGNESIUM 1.5 mg/dL (1.8-2.4)
[2023-01-12 06:48] LABS: CREATININE 0.9 mg/dL (0.55-1.3)
[2023-01-12 06:50] LABS: BILIRUBIN,TOTAL 1.3 mg/dL (0.2-1); TOT PROT 8.9 g/dl (6.4-8.2)
[2023-01-12 06:54] LABS: N-TERMINAL BNP 79.2 pg/ml (5-125)
[2023-01-12 08:12] VITALS: BP 137/79; PULSE 85; RESP 18
== END 2023-01-12 07:55 | disposition home or self-care (01) ==
LOC: JER 04:44
DX: R06.02 Shortness of breath (principal); J44.1 Chronic obstructive pulmonary disease with (acute) exacerbation
CPT/HCPCS: 36415; 71045-TC-FY; 80053; 82550; 82803; 83735; 83880; 84484; 85025; 85610; 85730; 93005; 93010; 99285-25

== ENCOUNTER 2023-10-24 23:32 | Emergency (ER) | payer OTHER ==
[2023-10-24 23:41] VITALS: BMI 17.4
[2023-10-25 01:02] VITALS: BP 154/93; PULSE 103; RESP 19; TEMP 97.5
[2023-10-25] MEDS ORDERED: ONDANSETRON 4 MG/2 ML VIAL ONE (01:06)
[2023-10-25 01:23] LABS: HEMATOCRIT 41.6 % (35.4-49); HEMOGLOBIN 14.2 GM/dL (11.7-16.9); MCH 36.3 pg (25.7-33.7); MCHC 34.1 g/dl (32.0-35.9); MEAN CELL VOLUME 106.5 fl (80-96); MEAN PLT VOLUME 7.2 fl (7.5-11.1); PLATELET COUNT 145 10^3/uL (134-434); RDW 12.5 % (11.9-15.9); WHITE BLOOD COUNT 10.8 K/mm3 (4.0-10.0)
[2023-10-25 01:36] LABS: POTASSIUM 4.2 mmol/L (3.5-5.1)
[2023-10-25 01:38] LABS: CALCIUM 9.5 mg/dL (8.5-10.1)
[2023-10-25] MEDS ORDERED: diazePAM CARPU-JECT 10 MG/2 ML DISP.SYRIN ONE ×2 (01:39→02:44)
[2023-10-25 01:40] LABS: ALBUMIN 4.2 g/dl (3.4-5.0); BLOOD UREA NITROGEN 5.1 mg/dL (7-18)
[2023-10-25 01:42] LABS: CREATININE 0.9 mg/dL (0.55-1.3)
[2023-10-25 01:43] LABS: BILIRUBIN,TOTAL 3.2 mg/dL (0.2-1); TOT PROT 9.5 g/dl (6.4-8.2)
[2023-10-25] MEDS: ONDANSETRON 4 MG/2 ML VIAL IVPUSH ONE (01:49)
[2023-10-25] MEDS: diazePAM CARPU-JECT 10 MG/2 ML DISP.SYRIN IVPUSH ONE ×2 (01:49→02:58)
[2023-10-25 02:51] LABS: ANISOCYTOSIS 2+; MACROCYTOSIS 2+; ROULEAU 1+
[2023-10-25] MEDS: FOLIC ACID INJECTION - 1 MG, THIAMINE HCL 100 MG, MULTIVIT INJECTION ADULT 10 ML in SOD... IVPB ONE (03:58)
[2023-10-25] MEDS ORDERED: FOLIC ACID INJECTION - 1 MG, THIAMINE HCL 100 MG, MULTIVIT INJECTION ADULT 10 ML in SOD... IVPB ONE (08:00)
== END 2023-10-25 03:50 | disposition short-term general hospital (02) ==
LOC: JER 23:32
PROC: 3E033GC Introduction of Other Therapeutic Substance into Peripheral Vein, Percutaneous Approach (ICD-10-PCS; principal; 2023-10-25)
PROC: 3E033GC Introduction of Other Therapeutic Substance into Peripheral Vein, Percutaneous Approach (ICD-10-PCS; 2023-10-25)
PROC: 3E033GC Introduction of Other Therapeutic Substance into Peripheral Vein, Percutaneous Approach (ICD-10-PCS; 2023-10-25)
DX: R11.2 Nausea with vomiting, unspecified (principal); F10.239 Alcohol dependence with withdrawal, unspecified; R00.0 Tachycardia, unspecified; Z20.822 Contact with and (suspected) exposure to COVID-19; Y90.9 Presence of alcohol in blood, level not specified
CPT/HCPCS: 0241U-QW; 36415; 71045-TC-FY; 80053; 83690; 85025; 93005; 93010; 96374; 96375; 96376; 99285-25

== ENCOUNTER 2023-10-25 04:39 | Inpatient (IN) | payer BC, OTHER ==
[2023-10-25 07:46] VITALS: BMI 16.6
[2023-10-25] MEDS ORDERED: LOPERAMIDE HCL 2 MG CAPSULE PO PRN (10:20)
[2023-10-25] MEDS ORDERED: ONDANSETRON *ODT* 4 MG TABLET SL PRN (10:20)
[2023-10-25] MEDS ORDERED: POLYETHYLENE GLYCOL (HEALTHYLAX) 3350 17 GM PACKET PO PRN (10:20)
[2023-10-25] MEDS ORDERED: IBUPROFEN 600 MG TABLET (FP) PO PRN (10:20)
[2023-10-25] MEDS ORDERED: ACETAMINOPHEN 325 MG TABLET (FP) PO PRN (10:20)
[2023-10-25] MEDS ORDERED: IBUPROFEN 400 MG TABLET (FP) PO PRN (10:20)
[2023-10-25] MEDS ORDERED: BENZOCAINE/MENTHOL (CHLORASEPTIC ) LOZENGE MM PRN (10:20)
[2023-10-25] MEDS ORDERED: NALOXONE HCL (KLOXXADO) 8 MG SPRAY NS PRN (10:20)
[2023-10-25] MEDS ORDERED: guaiFENesin 600 MG TABLET.ER (FP) PO PRN (10:20)
[2023-10-25] MEDS ORDERED: BISMUTH SUBSALICYLATE 262 MG/15 ML BTL PO PRN (10:20)
[2023-10-25] MEDS ORDERED: NALOXONE HCL 0.4 MG/ML VIAL IM PRN (10:20)
[2023-10-25] MEDS ORDERED: BENZONATATE 200 MG CAPSULE PO PRN (10:20)
[2023-10-25] MEDS ORDERED: LORazepam 1 MG TABLET ONE (11:07)
[2023-10-25] MEDS: LORazepam 1 MG TABLET PO SCH (11:11)
[2023-10-25] MEDS ORDERED: ALBUTEROL SO4 HFA INHALER IH PRN (13:21)
[2023-10-25] MEDS: THIAMINE HCL 100 MG TABLET (FP) PO SCH (21:57)
[2023-10-25] MEDS: MELATONIN 5 MG TABLETS PO SCH (21:58)
[2023-10-26] MEDS: MAGNESIUM HYDROX 2400MG/30ML ORAL SUSPENSION 30 ML CUP PO PRN (05:35)
[2023-10-26] MEDS: PRENATAL VITAMINS W/ FOLIC ACID TABLET (FP) PO SCH (10:56)
[2023-10-26 12:09] LABS: HEMATOCRIT 37.7 % (35.4-49); HEMOGLOBIN 13.2 GM/dL (11.7-16.9); MCH 36.7 pg (25.7-33.7); MCHC 35.1 g/dl (32.0-35.9); MEAN CELL VOLUME 104.5 fl (80-96); MEAN PLT VOLUME 8.3 fl (7.5-11.1); PLATELET COUNT 146 10^3/uL (134-434); RBC 3.61 M/mm3 (4.00-5.60); RDW 12.6 % (11.9-15.9); WHITE BLOOD COUNT 10.8 K/mm3 (4.0-10.0)
[2023-10-26 13:04] LABS: POTASSIUM 3.8 mmol/L (3.5-5.1)
[2023-10-26 13:06] LABS: CALCIUM 9.6 mg/dL (8.5-10.1)
[2023-10-26 13:07] LABS: ALBUMIN 4.3 g/dl (3.4-5.0); BLOOD UREA NITROGEN 6.5 mg/dL (7-18)
[2023-10-26 13:12] LABS: TOT PROT 9.2 g/dl (6.4-8.2)
[2023-10-26] MEDS: LORazepam 1 MG TABLET PO PRN (15:38)
[2023-10-27] MEDS: LORazepam 1 MG TABLET PO SCH (05:42)
[2023-10-27] MEDS: MAG HYDROX/AL HYDROX/SIMETH 30 ML UNIT-DOSE CUP PO PRN (07:03)
[2023-10-27 11:15] LABS: BILIRUBIN,DIRECT 0.6 mg/dL (0.0-0.2)
[2023-10-27 11:18] LABS: BILIRUBIN,TOTAL 2.2 mg/dL (0.2-1)
[2023-10-27] MEDS: LACTULOSE 20 GM/30 ML UDC (FOR ORAL USE ONLY) PO SCH (22:00)
[2023-10-28] MEDS: LORazepam 0.5 MG TABLET PO SCH (06:00)
[2023-10-28] MEDS: LORazepam 0.5 MG TABLET PO PRN (18:05)
[2023-10-29] MEDS: LORazepam 0.5 MG TABLET PO ONE (05:52)
[2023-10-30 06:41] VITALS: RESP 16
[2023-10-30 09:34] VITALS: BP 129/78; PULSE 90; TEMP 98.8
== END 2023-10-30 11:45 | disposition home or self-care (01) | DRG 775 ==
LOC: YASAS 04:39 → Y6N 10:45 → Y3N 10-28 16:50
PROVIDERS: ADMIT Allergy & Immunology; ATTEND Allergy & Immunology
PROC: HZ2ZZZZ Detoxification Services for Substance Abuse Treatment (ICD-10-PCS; principal; 2023-10-25)
DX: F10.230 Alcohol dependence with withdrawal, uncomplicated (principal); F12.10 Cannabis abuse, uncomplicated; F43.10 Post-traumatic stress disorder, unspecified; E72.20 Disorder of urea cycle metabolism, unspecified; I10 Essential (primary) hypertension; E80.6 Other disorders of bilirubin metabolism; R26.89 Other abnormalities of gait and mobility; Z87.19 Personal history of other diseases of the digestive system
CPT/HCPCS: 36415; 80053; 80307; 82140; 82247; 82248; 85027; 86780; 86803; 87635; 87811

== ENCOUNTER 2024-07-29 13:51 | Inpatient (IN) | payer BC, OTHER ==
[2024-07-29 14:49] VITALS: BMI 17.2
[2024-07-29] MEDS ORDERED: ALBUTEROL SO4 HFA INHALER IH PRN (15:03)
[2024-07-29] MEDS ORDERED: POLYETHYLENE GLYCOL (HEALTHYLAX) 3350 17 GM PACKET PO PRN (15:15)
[2024-07-29] MEDS ORDERED: BENZOCAINE/MENTHOL (CHLORASEPTIC ) LOZENGE MM PRN (15:15)
[2024-07-29] MEDS ORDERED: NICOTINE POLACRILEX 2 MG LOZENGE BC PRN (15:15)
[2024-07-29] MEDS ORDERED: DICYCLOMINE HCL 10 MG CAPSULE PO PRN (15:15)
[2024-07-29] MEDS ORDERED: BENZONATATE 200 MG CAPSULE PO PRN (15:15)
[2024-07-29] MEDS ORDERED: guaiFENesin 600 MG TABLET.ER (FP) PO PRN (15:15)
[2024-07-29] MEDS ORDERED: NICOTINE POLACRILEX 2 MG GUM BUC PRN (15:15)
[2024-07-29] MEDS ORDERED: IBUPROFEN 400 MG TABLET (FP) PO PRN (15:15)
[2024-07-29] MEDS ORDERED: NALOXONE (NYS OPIOID OVERDOSE PROGRAM) 4 MG/0.1 ML SPRAY NS PRN (15:15)
[2024-07-29] MEDS ORDERED: ONDANSETRON *ODT* 4 MG TABLET SL PRN (15:15)
[2024-07-29] MEDS ORDERED: LOPERAMIDE HCL 2 MG CAPSULE PO PRN (15:15)
[2024-07-29] MEDS ORDERED: BISMUTH SUBSALICYLATE 524 MG/30 ML PO PRN (15:15)
[2024-07-29] MEDS ORDERED: MAGNESIUM HYDROX 2400MG/30ML ORAL SUSPENSION 30 ML CUP PO PRN (15:15)
[2024-07-29] MEDS ORDERED: METOPROLOL TARTRATE 25 MG TABLET (FP) ONE (15:39)
[2024-07-29] MEDS: METOPROLOL TARTRATE 25 MG TABLET (FP) PO ONE (15:40)
[2024-07-29] MEDS ORDERED: chlordiazePOXIDE HCL 25 MG CAPSULE ONE (16:02)
[2024-07-29] MEDS: chlordiazePOXIDE HCL 25 MG CAPSULE PO SCH (16:08)
[2024-07-29] MEDS: MELATONIN 5 MG TABLETS PO SCH (22:12)
[2024-07-29] MEDS: METHOCARBAMOL 500 MG TABLET PO PRN (22:13)
[2024-07-29] MEDS: THIAMINE 100 MG TABLET PO SCH (22:13)
[2024-07-30] MEDS: PRENATAL VITAMINS W/ FOLIC ACID TABLET (FP) PO SCH (10:23)
[2024-07-30] MEDS: FOLIC ACID 1 MG TABLET (FP) PO SCH (10:23)
[2024-07-30] MEDS: IBUPROFEN 600 MG TABLET (FP) PO PRN (10:24)
[2024-07-30] MEDS ORDERED: cloNIDine HCL 0.1 MG TABLET PO PRN (13:04)
[2024-07-30] MEDS: FLU VACCINE (FLULAVAL) PF 45 MCG/0.5 ML SYRINGE 2024-2025 IM ONE (14:13)
[2024-07-30 14:33] LABS: HEMATOCRIT 38.2 % (35.4-49); HEMOGLOBIN 13.1 GM/dL (11.7-16.9); MCH 36.4 pg (25.7-33.7); MCHC 34.2 g/dl (32.0-35.9); MEAN CELL VOLUME 106.2 fl (80-96); MEAN PLT VOLUME 6.6 fl (7.5-11.1); PLATELET COUNT 191 10^3/uL (134-434)
[2024-07-30 15:14] LABS: POTASSIUM 3.8 mmol/L (3.5-5.1)
[2024-07-30 15:17] LABS: CALCIUM 9.6 mg/dL (8.5-10.1)
[2024-07-30 15:18] LABS: ALBUMIN 3.8 g/dl (3.4-5.0); BLOOD UREA NITROGEN 8.1 mg/dL (7-18)
[2024-07-30 15:21] LABS: CREATININE 0.9 mg/dL (0.55-1.3)
[2024-07-30 15:23] LABS: TOT PROT 8.4 g/dl (6.4-8.2)
[2024-07-31] MEDS: hydrOXYzine PAMOATE 25 MG CAPSULE (FP) PO PRN (01:41)
[2024-07-31] MEDS: chlordiazePOXIDE HCL 25 MG CAPSULE PO PRN (01:41)
[2024-07-31] MEDS: chlordiazePOXIDE HCL 25 MG CAPSULE PO SCH (05:25)
[2024-07-31] MEDS: ACETAMINOPHEN 325 MG TABLET (FP) PO PRN (10:34)
[2024-07-31] MEDS: amLODIPine BESYLATE 5 MG TABLET (FP) PO SCH (11:25)
[2024-07-31] MEDS: MAG HYDROX/AL HYDROX/SIMETH 30 ML UNIT-DOSE CUP PO PRN (22:36)
[2024-08-01] MEDS ORDERED: chlordiazePOXIDE HCL 10 MG CAPSULE PO PRN
[2024-08-01] MEDS: chlordiazePOXIDE HCL 10 MG CAPSULE PO SCH (05:48)
[2024-08-01 13:14] LABS: BASO % 0.6 % (0-2.0); EOS % 5.3 % (0-4.5); HEMATOCRIT 37.6 % (35.4-49); HEMOGLOBIN 12.5 GM/dL (11.7-16.9); LYMPH % 18.7 % (8-40); MCH 35.9 pg (25.7-33.7); MCHC 33.1 g/dl (32.0-35.9); MEAN CELL VOLUME 108.6 fl (80-96); MEAN PLT VOLUME 6.8 fl (7.5-11.1); MONO % 18.5 % (3.8-10.2); NEUT % 56.9 % (42.8-82.8); PLATELET COUNT 196 10^3/uL (134-434); RBC 3.47 M/mm3 (4.00-5.60); RDW 14.3 % (11.9-15.9)
[2024-08-01 13:41] LABS: ANISOCYTOSIS 1+; MACROCYTOSIS 1+
[2024-08-01 13:47] LABS: POTASSIUM 4.1 mmol/L (3.5-5.1)
[2024-08-01 14:05] LABS: BLOOD UREA NITROGEN 8.4 mg/dL (7-18); CALCIUM 9.4 mg/dL (8.5-10.1)
[2024-08-01 14:08] LABS: CREATININE 0.7 mg/dL (0.55-1.3)
[2024-08-01 14:09] LABS: BILIRUBIN,TOTAL 1.2 mg/dL (0.2-1); TOT PROT 7.3 g/dl (6.4-8.2)
[2024-08-01 14:29] LABS: ALBUMIN 3.6 g/dl (3.4-5.0)
[2024-08-02] MEDS: chlordiazePOXIDE HCL 10 MG CAPSULE PO SCH (05:36)
[2024-08-03] MEDS: chlordiazePOXIDE HCL 10 MG CAPSULE PO ONE (05:24)
[2024-08-03 05:55] VITALS: RESP 16
[2024-08-03] MEDS: NALOXONE (NYS OPIOID OVERDOSE PROGRAM) 4 MG/0.1 ML SPRAY NS SCH (08:56)
[2024-08-03 09:30] VITALS: BP 148/90; PULSE 87; TEMP 97.6
== END 2024-08-03 11:21 | disposition other institution (70) | DRG 775 ==
LOC: YASAS 13:51 → Y3N 15:52
PROVIDERS: ADMIT Surgery; ATTEND Allergy & Immunology
PROC: HZ2ZZZZ Detoxification Services for Substance Abuse Treatment (ICD-10-PCS; principal; 2024-07-29)
DX: F10.230 Alcohol dependence with withdrawal, uncomplicated (principal); F12.10 Cannabis abuse, uncomplicated; F17.210 Nicotine dependence, cigarettes, uncomplicated; F10.280 Alcohol dependence with alcohol-induced anxiety disorder; F10.282 Alcohol dependence with alcohol-induced sleep disorder; F51.05 Insomnia due to other mental disorder; F43.10 Post-traumatic stress disorder, unspecified; G47.00 Insomnia, unspecified; I10 Essential (primary) hypertension; Z87.19 Personal history of other diseases of the digestive system
CPT/HCPCS: 36415; 80053; 80305; 83036; 85025; 85027; 86780; 87811; 90656; G0008

== ENCOUNTER 2024-08-03 11:21 | Inpatient (IN) | payer OTHER ==
[2024-08-03] MEDS ORDERED: ACETAMINOPHEN 325 MG TABLET (FP) PO PRN (15:06)
[2024-08-03] MEDS ORDERED: BENZONATATE 200 MG CAPSULE PO PRN (15:06)
[2024-08-03] MEDS ORDERED: guaiFENesin 600 MG TABLET.ER (FP) PO PRN (15:06)
[2024-08-03] MEDS ORDERED: MAGNESIUM HYDROX 2400MG/30ML ORAL SUSPENSION 30 ML CUP PO PRN (15:06)
[2024-08-03] MEDS ORDERED: BENZOCAINE/MENTHOL (CHLORASEPTIC ) LOZENGE MM PRN (15:06)
[2024-08-03] MEDS ORDERED: NALOXONE (NARCAN) HCL 4 MG/0.1 ML SPRAY NS PRN (15:06)
[2024-08-03] MEDS ORDERED: NALOXONE HCL 0.4 MG/ML VIAL IVPUSH PRN (15:06)
[2024-08-03] MEDS ORDERED: POLYETHYLENE GLYCOL (HEALTHYLAX) 3350 17 GM PACKET PO PRN (15:06)
[2024-08-03] MEDS ORDERED: LOPERAMIDE HCL 2 MG CAPSULE PO PRN (15:06)
[2024-08-03] MEDS ORDERED: MAG HYDROX/AL HYDROX/SIMETH 30 ML UNIT-DOSE CUP PO PRN (15:06)
[2024-08-03] MEDS: MELATONIN 5 MG TABLETS PO SCH (21:32)
[2024-08-03] MEDS: THIAMINE 100 MG TABLET PO SCH (21:32)
[2024-08-04] MEDS: FOLIC ACID 1 MG TABLET (FP) PO SCH (09:41)
[2024-08-04] MEDS: amLODIPine BESYLATE 5 MG TABLET (FP) PO SCH (09:41)
[2024-08-04] MEDS: PRENATAL VITAMINS W/ FOLIC ACID TABLET (FP) PO SCH (09:41)
[2024-08-04] MEDS ORDERED: PATIENT'S OWN MEDICATION (NON-FORMULARY) (Thiamine Hcl [B-1] 100 MG Tablet) PO SCH (10:00)
[2024-08-04] MEDS: SALICYLIC ACID (WART REMOVER) 9 ML LIQUID TP SCH (10:32)
[2024-08-04] MEDS: PNEUMOC 20-VAL CONJ-DIP CRM/PF 0.5 ML SYRINGE IM ONE (13:14)
[2024-08-04 15:45] LABS: HIV INTERPRETATION NEGATIVE (NEGATIVE)
[2024-08-04] MEDS: IBUPROFEN 600 MG TABLET (FP) PO PRN (21:11)
[2024-08-05] MEDS: IBUPROFEN 400 MG TABLET (FP) PO PRN (10:20)
[2024-08-08] MEDS: METHOCARBAMOL 500 MG TABLET PO PRN (09:57)
[2024-08-08] MEDS: NALTREXONE HCL 50 MG TABLET PO ONE (18:06)
[2024-08-09] MEDS: NALTREXONE HCL 50 MG TABLET PO SCH (10:36)
[2024-08-14] MEDS: hydrOXYzine PAMOATE 25 MG CAPSULE (FP) PO PRN (02:05)
[2024-08-14] MEDS ORDERED: NALTREXONE MICROSPHERES (VIVITROL) 380 MG DISP.SYRIN IM ONE (10:00)
[2024-08-15] MEDS ORDERED: amLODIPine BESYLATE 2.5 MG TABLET (FP) PO SCH (13:30)
[2024-08-15] MEDS: GABAPENTIN 100 MG CAPSULE PO SCH (13:37)
[2024-08-16] MEDS: amLODIPine BESYLATE 2.5 MG TABLET (FP) PO SCH (10:05)
[2024-08-16] MEDS: NALTREXONE MICROSPHERES (VIVITROL) 380 MG DISP.SYRIN IM ONE (10:23)
[2024-08-17 06:45] VITALS: RESP 16; TEMP 97.8
[2024-08-17] MEDS: NALOXONE (NYS OPIOID OVERDOSE PROGRAM) 4 MG/0.1 ML SPRAY NS PRN (08:43)
[2024-08-17 09:41] VITALS: BP 128/84; PULSE 76
== END 2024-08-17 09:50 | disposition home or self-care (01) | DRG 772 ==
LOC: YASAS 11:21 → Y3E 11:22
PROVIDERS: ADMIT Psychiatry & Neurology Pain Medicine; ATTEND Psychiatry & Neurology Pain Medicine
PROC: HZ42ZZZ Group Counseling for Substance Abuse Treatment, Cognitive-Behavioral (ICD-10-PCS; principal; 2024-08-03)
DX: F10.20 Alcohol dependence, uncomplicated (principal); F12.20 Cannabis dependence, uncomplicated; F17.210 Nicotine dependence, cigarettes, uncomplicated; F19.282 Other psychoactive substance dependence with psychoactive substance-induced sleep disorder; F19.24 Other psychoactive substance dependence with psychoactive substance-induced mood disorder; F43.10 Post-traumatic stress disorder, unspecified; R20.2 Paresthesia of skin; Z87.19 Personal history of other diseases of the digestive system
CPT/HCPCS: 36415; 82140; 82962; 86803; 87389; 90677; G0009; J2315

== ENCOUNTER 2025-04-03 15:03 | Inpatient (IN) | payer OTHER ==
[2025-04-03 15:41] VITALS: BMI 15.7
[2025-04-03] MEDS ORDERED: hydrOXYzine PAMOATE 25 MG CAPSULE (FP) PO PRN (16:15)
[2025-04-03] MEDS ORDERED: ACETAMINOPHEN 325 MG TABLET (FP) PO PRN (16:15)
[2025-04-03] MEDS ORDERED: guaiFENesin 600 MG TABLET.ER (FP) PO PRN (16:15)
[2025-04-03] MEDS ORDERED: DICYCLOMINE HCL 10 MG CAPSULE PO PRN (16:15)
[2025-04-03] MEDS ORDERED: BENZONATATE 200 MG CAPSULE PO PRN (16:15)
[2025-04-03] MEDS ORDERED: BENZOCAINE/MENTHOL (CHLORASEPTIC ) LOZENGE MM PRN (16:15)
[2025-04-03] MEDS ORDERED: NALOXONE (NARCAN) HCL 4 MG/0.1 ML SPRAY NS PRN (16:15)
[2025-04-03] MEDS ORDERED: BISMUTH SUBSALICYLATE 524 MG/30 ML PO PRN (16:15)
[2025-04-03] MEDS ORDERED: METHOCARBAMOL 500 MG TABLET PO PRN (16:15)
[2025-04-03] MEDS ORDERED: LOPERAMIDE HCL 2 MG CAPSULE PO PRN (16:15)
[2025-04-03] MEDS: THIAMINE 100 MG TABLET PO SCH (22:24)
[2025-04-03] MEDS: MELATONIN 5 MG TABLETS PO SCH (22:25)
[2025-04-03] MEDS: NALTREXONE HCL 50 MG TABLET PO ONE (22:27)
[2025-04-03] MEDS: PRENATAL VITAMINS W/ FOLIC ACID TABLET (FP) PO SCH (22:27)
[2025-04-04] MEDS: ONDANSETRON *ODT* 4 MG TABLET SL PRN (04:29)
[2025-04-04] MEDS: NALTREXONE HCL 50 MG TABLET PO SCH (10:34)
[2025-04-04] MEDS: IBUPROFEN 600 MG TABLET (FP) PO PRN (10:34)
[2025-04-04] MEDS: MAG HYDROX/AL HYDROX/SIMETH 30 ML UNIT-DOSE CUP PO PRN (10:35)
[2025-04-04] MEDS: amLODIPine BESYLATE 5 MG TABLET (FP) PO SCH (13:48)
[2025-04-04 16:49] LABS: MCHC 33.8 g/dl (32.3-36.5); MEAN CELL VOLUME 102.6 fl (79.0-92.2); MEAN PLT VOLUME 11.0 fl (9.4-12.4); RDW 11.9 % (12.2-16.1)
[2025-04-04 17:12] LABS: ALK PHOS 102 U/L (45-117)
[2025-04-04 17:15] LABS: CO2 28 mmol/L (21-32); CREATININE 1.0 mg/dL (0.55-1.3); GLUCOSE,RANDOM 138 mg/dL (74-106); SGOT/AST 22 U/L (15-37)
[2025-04-04 17:17] LABS: TOT PROT 8.5 g/dl (6.4-8.2)
[2025-04-04 17:21] LABS: SGPT/ALT 15 U/L (13-61)
[2025-04-04] MEDS: SUVOREXANT 10 MG TABLET PO PRN (22:32)
[2025-04-04] MEDS: MIRTAZAPINE 15 MG TABLET (FP) PO SCH (22:34)
[2025-04-06] MEDS: IBUPROFEN 400 MG TABLET (FP) PO PRN (17:36)
[2025-04-07] MEDS: MAGNESIUM HYDROX 2400MG/30ML ORAL SUSPENSION 30 ML CUP PO PRN (17:26)
[2025-04-08] MEDS: POLYETHYLENE GLYCOL (HEALTHYLAX) 3350 17 GM PACKET PO PRN (02:45)
[2025-04-08 05:53] VITALS: RESP 16
[2025-04-08] MEDS ORDERED: INSULIN (NOVOLOG) ASPART 100 UNITS/ML 10ML VIAL ONE (11:31)
[2025-04-08 17:36] VITALS: BP 122/80; PULSE 79; TEMP 97.9
== END 2025-04-08 17:10 | disposition home or self-care (01) | DRG 775 ==
LOC: YASAS 15:03 → Y6N 19:25
PROVIDERS: ADMIT Neuromusculoskeletal Medicine & OMM; ATTEND Allergy & Immunology
PROC: HZ2ZZZZ Detoxification Services for Substance Abuse Treatment (ICD-10-PCS; principal; 2025-04-03)
DX: F10.230 Alcohol dependence with withdrawal, uncomplicated (principal); F12.20 Cannabis dependence, uncomplicated; F10.280 Alcohol dependence with alcohol-induced anxiety disorder; F10.282 Alcohol dependence with alcohol-induced sleep disorder; F43.10 Post-traumatic stress disorder, unspecified; G47.00 Insomnia, unspecified; I10 Essential (primary) hypertension; M26.89 Other dentofacial anomalies; R79.89 Other specified abnormal findings of blood chemistry; Z87.19 Personal history of other diseases of the digestive system
CPT/HCPCS: 36415; 80053; 80305; 80307; 82140; 85027; 86780; 87811; 93005; 93010; Q0162